=== PATIENT | female | born 1955 | race Caucasian/White ===

== ENCOUNTER 2019-04-13 05:48 | Inpatient (IN) ==
[2019-04-13] MEDS ORDERED: Furosemide 20 MG/2 ML VIAL IVP ONE (09:53)
[2019-04-13] MEDS ORDERED: Ondansetron ODT 4 MG TAB.RAPDIS SL PRN (09:56)
[2019-04-13] MEDS ORDERED: Naloxone 0.4 MG/ML INJ IVP PRN (09:56)
[2019-04-13] MEDS ORDERED: Furosemide 40 MG/4 ML VIAL ONE (09:59)
[2019-04-13] MEDS ORDERED: Furosemide 40 MG/4 ML VIAL IVP ONE (10:09)
[2019-04-13] MEDS ORDERED: Dextrose Gel 15 GM/37.5 ML TUBE PO PRN ×2 (10:10)
[2019-04-13] MEDS ORDERED: D5% in Water 1,000 ML IVC PRN (10:10)
[2019-04-13] MEDS ORDERED: Nitroglycerin 0.4 MG TAB.SUBL SL PRN (10:10)
[2019-04-13] MEDS ORDERED: *HR* Dextrose 50 % in Water (Syg) 50 ML SYRINGE IVP PRN (10:10)
[2019-04-13] MEDS ORDERED: Ipratropium Neb 0.5 MG NEBULIZER IH PRN (10:11)
[2019-04-13] MEDS ORDERED: Levalbuterol Neb 0.63 MG/3 ML IH PRN (10:26)
[2019-04-13] MEDS ORDERED: *HR* Heparin 5,000 UNIT/ML VIAL IVP PRN ×2 (10:27)
[2019-04-13] MEDS ORDERED: *HR* Heparin 5,000 UNIT/ML VIAL IVP ONE (10:27)
[2019-04-13] MEDS ORDERED: Isovue-370 500 ML BOTTLE IVP ONE (10:40)
[2019-04-13] MEDS: levoFLOXacin 750 MG/150 ML 750 MG/150 ML BAG IVPB SCH (12:33)
[2019-04-13] MEDS: Insulin LISPRO 300 UNITS/3 ML VIAL SQ SCH ×3 (13:21→19:46)
[2019-04-13] MEDS: Heparin 25,000 UNIT/250 ML D5W 25,000 UNIT/250 ML IV.SOLN IVC SCH (13:26)
[2019-04-13] MEDS: Nystatin POWDER 30 GM BOTTLE TP SCH ×2 (13:36→19:47)
[2019-04-13 13:47] LABS: INR 1.1; Prothrombin Time 12.1 Seconds (9.4-12.1)
[2019-04-13 13:57] LABS: Magnesium 1.9 mg/dL (1.6-2.6)
[2019-04-13 14:01] LABS: Troponin I 0.06 ng/mL (< 0.04)
[2019-04-13] MEDS: Ipratropium Neb 0.5 MG NEBULIZER IH SCH ×2 (17:09→21:37)
[2019-04-14 01:44] LABS: Hematocrit 39.6 % (35.3-44.9); Hemoglobin 13.3 g/dL (11.5-15.4); Mean Corpuscular HGB Conc 33.6 g/dL (31.6-35.5); Mean Corpuscular Hemoglobin 31.4 pg (28.0-33.3); Mean Corpuscular Volume 93.4 fL (83.0-100.0); Mean Platelet Volume 9.7 fL (9.4-12.4); Platelet Count 220 K/mcL (140-400); Red Blood Count 4.24 M/mcL (3.82-4.97); Red Cell Distribution Width 14.6 % (11.5-14.5); White Blood Count 20.3 K/mcL (4.3-11.1)
[2019-04-14 01:51] LABS: BUN/Creatinine Ratio 67 (6-26); Blood Urea Nitrogen 43 mg/dL (8-23); Calcium 9.2 mg/dL (8.6-10.3); Carbon Dioxide 29 mEq/L (23-29); Chloride 99 mEq/L (98-107); Glucose 272 mg/dL (70-105); Osmolality,Calculated 298 (280-300); Potassium 4.3 mEq/L (3.5-5.1); Sodium 134 mEq/L (136-145); eGFR For African Americans > 60 (> 60); eGFR For Non-African Americans > 60 (> 60)
[2019-04-14] MEDS: Ipratropium Neb 0.5 MG NEBULIZER IH SCH ×4 (03:20→21:51)
[2019-04-14] MEDS: Heparin 25,000 UNIT/250 ML D5W 25,000 UNIT/250 ML IV.SOLN IVC SCH (04:04)
[2019-04-14] MEDS ORDERED: *HR* HYDROcodone/Acet 5/325 mg TABLET PO ONE (05:46)
[2019-04-14] MEDS ORDERED: Perflutren Lipid Microsphere 1.3 ML in 0.9 % Sodium Chloride 8.7 ML IVP ONE (07:45)
[2019-04-14] MEDS: Insulin LISPRO 300 UNITS/3 ML VIAL SQ SCH ×4 (08:52→21:05)
[2019-04-14] MEDS: levoFLOXacin 750 MG/150 ML 750 MG/150 ML BAG IVPB SCH (08:52)
[2019-04-14] MEDS: Nystatin POWDER 30 GM BOTTLE TP SCH ×2 (08:53→21:06)
[2019-04-14] MEDS: predniSONE 20 MG TABLET PO SCH (08:53)
[2019-04-14] MEDS ORDERED: Lisinopril 20 MG TABLET PO SCH (09:00)
[2019-04-14] MEDS ORDERED: Diltiazem CD (24hr) 120 MG CAPSULE PO SCH (09:00)
[2019-04-14] MEDS ORDERED: Spironolactone 25 MG TABLET PO SCH (09:00)
[2019-04-14] MEDS: Apixaban 5 MG TABLET PO SCH ×2 (11:16→21:05)
[2019-04-14] MEDS: Multivit/Ca/Min/Fe/FA 1 TAB TABLET PO SCH (11:17)
[2019-04-14] MEDS: Isosorbide MONOnitrate (24 HR) 30 MG TAB.ER.24H PO SCH (11:17)
[2019-04-14] MEDS: Aspirin Enteric Coated 81 MG Tablet PO SCH (11:17)
[2019-04-14] MEDS: CarBAMazepine 100 MG TABLET PO SCH ×2 (11:18→21:05)
[2019-04-14] MEDS: Cholecalciferol (D-3) 1,000 UNIT (25MCG) TABLET PO SCH (11:18)
[2019-04-14] MEDS: Triamcinolone Acet 0.1% CRM 15 GM TUBE TP SCH ×3 (11:24→21:26)
[2019-04-14] MEDS: Clotrimazole 1% CRM 15 GM TUBE TP SCH ×3 (11:25→21:26)
[2019-04-14] MEDS: Budesonide/Formoterol 160/4.5 1 PUFF INH IH SCH ×2 (11:46→21:51)
[2019-04-14] MEDS: Furosemide 40 MG/4 ML VIAL IVP SCH ×2 (11:53→17:03)
[2019-04-14] MEDS: *HR* Metoprolol 5 MG/5 ML VIAL IVP PRN (17:03)
[2019-04-14] MEDS ORDERED: Insulin DETEMIR 100 UNIT/ML X5UNITS SQ SCH (21:00)
[2019-04-15] MEDS: Ipratropium Neb 0.5 MG NEBULIZER IH SCH ×2 (03:31→10:37)
[2019-04-15 06:24] LABS: Basophils % 0.2 %; Hematocrit 39.1 % (35.3-44.9); Hemoglobin 12.6 g/dL (11.5-15.4); Lymphocytes # 1.6 K/mcL (0.6-4.6); Lymphocytes % 10.1 %; Mean Corpuscular HGB Conc 32.2 g/dL (31.6-35.5); Mean Corpuscular Hemoglobin 31.2 pg (28.0-33.3); Mean Corpuscular Volume 96.8 fL (83.0-100.0); Mean Platelet Volume 9.8 fL (9.4-12.4); Monocytes % 6.4 %; Platelet Count 226 K/mcL (140-400); Red Blood Count 4.04 M/mcL (3.82-4.97); Red Cell Distribution Width 14.6 % (11.5-14.5); Segmented Neutrophils % 82.3 %; White Blood Count 15.8 K/mcL (4.3-11.1)
[2019-04-15 06:38] LABS: BUN/Creatinine Ratio 55 (6-26); Blood Urea Nitrogen 36 mg/dL (8-23); Calcium 9.9 mg/dL (8.6-10.3); Carbon Dioxide 34 mEq/L (23-29); Chloride 96 mEq/L (98-107); Glucose 250 mg/dL (70-105); Magnesium 1.6 mg/dL (1.6-2.6); Osmolality,Calculated 305 (280-300); Phosphorous 3.1 mg/dL (2.7-4.5); Potassium 3.9 mEq/L (3.5-5.1); Sodium 139 mEq/L (136-145); eGFR For African Americans > 60 (> 60); eGFR For Non-African Americans > 60 (> 60)
[2019-04-15] MEDS: Multivit/Ca/Min/Fe/FA 1 TAB TABLET PO SCH (08:00)
[2019-04-15] MEDS: Furosemide 40 MG/4 ML VIAL IVP SCH ×2 (08:07→17:45)
[2019-04-15] MEDS: CarBAMazepine 100 MG TABLET PO SCH ×2 (08:07→20:43)
[2019-04-15] MEDS: Cholecalciferol (D-3) 1,000 UNIT (25MCG) TABLET PO SCH (08:07)
[2019-04-15] MEDS: Spironolactone 25 MG TABLET PO SCH (08:08)
[2019-04-15] MEDS: Aspirin Enteric Coated 81 MG Tablet PO SCH (08:08)
[2019-04-15] MEDS: predniSONE 20 MG TABLET PO SCH (08:08)
[2019-04-15] MEDS: Apixaban 5 MG TABLET PO SCH ×2 (08:08→20:43)
[2019-04-15] MEDS: Isosorbide MONOnitrate (24 HR) 30 MG TAB.ER.24H PO SCH (08:08)
[2019-04-15] MEDS: levoFLOXacin 750 MG/150 ML 750 MG/150 ML BAG IVPB SCH (08:09)
[2019-04-15] MEDS: Clotrimazole 1% CRM 15 GM TUBE TP SCH ×2 (08:09→20:43)
[2019-04-15] MEDS: Triamcinolone Acet 0.1% CRM 15 GM TUBE TP SCH ×2 (08:09→20:43)
[2019-04-15] MEDS: Insulin LISPRO 300 UNITS/3 ML VIAL SQ SCH ×3 (08:10→17:46)
[2019-04-15] MEDS: ALPRAZolam 1 MG TABLET PO PRN (10:13)
[2019-04-15] MEDS: Budesonide/Formoterol 160/4.5 1 PUFF INH IH SCH ×2 (10:37→20:05)
[2019-04-15] MEDS: Tiotropium 18 MCG inhalation IH SCH (10:40)
[2019-04-15] MEDS: Nystatin POWDER 30 GM BOTTLE TP SCH ×2 (11:45→20:43)
[2019-04-15] MEDS: Acetylcysteine 10% 2 ML INHSOL IH SCH ×2 (15:34→23:27)
[2019-04-15] MEDS: Albuterol 2.5 MG/3 ML NEBULIZER IH SCH ×3 (15:35→23:27)
[2019-04-15] MEDS: *HR* Metoprolol 5 MG/5 ML VIAL IVP PRN (15:40)
[2019-04-15] MEDS ORDERED: Insulin Human Regular 20 UNIT in 0.9 % Sodium Chloride 10 ML IV ONE (17:07)
[2019-04-16] MEDS: Insulin DETEMIR 100 UNIT/ML X5UNITS SQ SCH ×2 (01:04→22:01)
[2019-04-16] MEDS: Insulin LISPRO 300 UNITS/3 ML VIAL SQ SCH ×6 (01:04→22:01)
[2019-04-16] MEDS: Albuterol 2.5 MG/3 ML NEBULIZER IH SCH ×6 (03:26→23:30)
[2019-04-16 03:30] LABS: Basophils # 0.1 K/mcL (0.0-0.2); Basophils % 0.9 %; Eosinophils % 0.1 %; Hematocrit 41.8 % (35.3-44.9); Hemoglobin 13.8 g/dL (11.5-15.4); Immature Granulocytes % 3.3 % (0-4); Lymphocytes # 2.2 K/mcL (0.6-4.6); Lymphocytes % 20.1 %; Mean Corpuscular Hemoglobin 30.8 pg (28.0-33.3); Mean Corpuscular Volume 93.3 fL (83.0-100.0); Mean Platelet Volume 9.5 fL (9.4-12.4); Monocytes # 1.2 K/mcL (0.0-1.3); Monocytes % 10.8 %; Platelet Count 242 K/mcL (140-400); Red Blood Count 4.48 M/mcL (3.82-4.97); Red Cell Distribution Width 14.8 % (11.5-14.5); Segmented Neutrophils % 64.8 %; White Blood Count 10.8 K/mcL (4.3-11.1)
[2019-04-16 03:49] LABS: BUN/Creatinine Ratio 52 (6-26); Blood Urea Nitrogen 32 mg/dL (8-23); Carbon Dioxide 32 mEq/L (23-29); Chloride 98 mEq/L (98-107); Glucose 226 mg/dL (70-105); Magnesium 1.5 mg/dL (1.6-2.6); Osmolality,Calculated 304 (280-300); Phosphorous 4.2 mg/dL (2.7-4.5); Sodium 140 mEq/L (136-145); eGFR For African Americans > 60 (> 60); eGFR For Non-African Americans > 60 (> 60)
[2019-04-16] MEDS: Furosemide 40 MG/4 ML VIAL IVP SCH ×2 (07:56→16:34)
[2019-04-16] MEDS: Acetaminophen 325 MG TABLET PO PRN ×2 (07:57→16:34)
[2019-04-16] MEDS: Multivit/Ca/Min/Fe/FA 1 TAB TABLET PO SCH (07:57)
[2019-04-16] MEDS: Isosorbide MONOnitrate (24 HR) 30 MG TAB.ER.24H PO SCH (07:57)
[2019-04-16] MEDS: Aspirin Enteric Coated 81 MG Tablet PO SCH (07:57)
[2019-04-16] MEDS: Apixaban 5 MG TABLET PO SCH ×2 (07:57→20:01)
[2019-04-16] MEDS: predniSONE 20 MG TABLET PO SCH (07:57)
[2019-04-16] MEDS: CarBAMazepine 100 MG TABLET PO SCH ×2 (07:57→20:01)
[2019-04-16] MEDS: Spironolactone 25 MG TABLET PO SCH (07:58)
[2019-04-16] MEDS: Cholecalciferol (D-3) 1,000 UNIT (25MCG) TABLET PO SCH (07:58)
[2019-04-16] MEDS: levoFLOXacin 750 MG/150 ML 750 MG/150 ML BAG IVPB SCH (07:58)
[2019-04-16] MEDS: Nystatin POWDER 30 GM BOTTLE TP SCH ×2 (07:59→19:57)
[2019-04-16] MEDS: Triamcinolone Acet 0.1% CRM 15 GM TUBE TP SCH ×2 (07:59→19:57)
[2019-04-16] MEDS: Clotrimazole 1% CRM 15 GM TUBE TP SCH ×2 (07:59→19:57)
[2019-04-16] MEDS: Acetylcysteine 10% 2 ML INHSOL IH SCH ×3 (08:08→19:58)
[2019-04-16] MEDS: Tiotropium 18 MCG inhalation IH SCH (08:08)
[2019-04-16] MEDS: Budesonide/Formoterol 160/4.5 1 PUFF INH IH SCH ×2 (08:08→19:59)
[2019-04-16] MEDS: Diltiazem CD (24hr) 180 MG CAPSULE PO SCH (11:24)
[2019-04-16] MEDS ORDERED: Insulin Human Regular 20 UNIT in 0.9 % Sodium Chloride 10 ML IV ONE (15:50)
[2019-04-16] MEDS: ALPRAZolam 1 MG TABLET PO PRN (16:35)
[2019-04-16] MEDS ORDERED: Insulin Human Regular 10 UNIT in 0.9 % Sodium Chloride 10 ML IV ONE (18:47)
[2019-04-17] MEDS: Albuterol 2.5 MG/3 ML NEBULIZER IH SCH ×2 (04:11→08:01)
[2019-04-17] MEDS: Budesonide/Formoterol 160/4.5 1 PUFF INH IH SCH ×2 (08:01→19:58)
[2019-04-17] MEDS: Acetylcysteine 10% 2 ML INHSOL IH SCH (08:01)
[2019-04-17] MEDS: Tiotropium 18 MCG inhalation IH SCH (08:12)
[2019-04-17] MEDS: Furosemide 40 MG/4 ML VIAL IVP SCH ×2 (08:12→17:33)
[2019-04-17] MEDS: Insulin LISPRO 300 UNITS/3 ML VIAL SQ SCH ×4 (08:12→19:46)
[2019-04-17] MEDS: CarBAMazepine 100 MG TABLET PO SCH ×2 (08:12→19:45)
[2019-04-17] MEDS: Diltiazem CD (24hr) 180 MG CAPSULE PO SCH (08:13)
[2019-04-17] MEDS: Aspirin Enteric Coated 81 MG Tablet PO SCH (08:13)
[2019-04-17] MEDS: Spironolactone 25 MG TABLET PO SCH (08:13)
[2019-04-17] MEDS: Apixaban 5 MG TABLET PO SCH ×2 (08:14→19:45)
[2019-04-17] MEDS: Nystatin POWDER 30 GM BOTTLE TP SCH ×2 (08:14→19:47)
[2019-04-17] MEDS: Clotrimazole 1% CRM 15 GM TUBE TP SCH ×2 (08:14→19:46)
[2019-04-17] MEDS: Isosorbide MONOnitrate (24 HR) 30 MG TAB.ER.24H PO SCH (08:14)
[2019-04-17] MEDS: predniSONE 20 MG TABLET PO SCH (08:14)
[2019-04-17] MEDS: levoFLOXacin 750 MG/150 ML 750 MG/150 ML BAG IVPB SCH (08:15)
[2019-04-17] MEDS: Cholecalciferol (D-3) 1,000 UNIT (25MCG) TABLET PO SCH (08:16)
[2019-04-17] MEDS: Triamcinolone Acet 0.1% CRM 15 GM TUBE TP SCH ×2 (08:16→19:46)
[2019-04-17] MEDS: Multivit/Ca/Min/Fe/FA 1 TAB TABLET PO SCH (08:16)
[2019-04-17] MEDS ORDERED: Levalbuterol Neb 0.63 MG/3 ML IH PRN (08:44)
[2019-04-17 09:53] LABS: Hematocrit 45.7 % (35.3-44.9); Hemoglobin 14.7 g/dL (11.5-15.4); Mean Corpuscular HGB Conc 32.2 g/dL (31.6-35.5); Mean Corpuscular Hemoglobin 30.7 pg (28.0-33.3); Mean Corpuscular Volume 95.4 fL (83.0-100.0); Mean Platelet Volume 9.9 fL (9.4-12.4); Monocytes # 1.4 K/mcL (0.0-1.3); Platelet Count 288 K/mcL (140-400); Red Blood Count 4.79 M/mcL (3.82-4.97); Red Cell Distribution Width 14.7 % (11.5-14.5); White Blood Count 15.5 K/mcL (4.3-11.1)
[2019-04-17 10:15] LABS: BUN/Creatinine Ratio 46 (6-26); Blood Urea Nitrogen 32 mg/dL (8-23); Calcium 10.5 mg/dL (8.6-10.3); Carbon Dioxide 40 mEq/L (23-29); Chloride 94 mEq/L (98-107); Glucose 315 mg/dL (70-105); Magnesium 1.5 mg/dL (1.6-2.6); Osmolality,Calculated 311 (280-300); Phosphorous 3.5 mg/dL (2.7-4.5); Sodium 141 mEq/L (136-145); eGFR For African Americans > 60 (> 60); eGFR For Non-African Americans > 60 (> 60)
[2019-04-17 10:28] LABS: Neutrophils # 9.2 K/mcL (1.6-8.9); Platelet Estimate Normal (Normal); Reactive Lymphocytes Present (Not Present)
[2019-04-17] MEDS: Acetaminophen 325 MG TABLET PO PRN (19:45)
[2019-04-17] MEDS: ALPRAZolam 1 MG TABLET PO PRN (19:45)
[2019-04-17] MEDS: Insulin DETEMIR 100 UNIT/ML X5UNITS SQ SCH (19:46)
[2019-04-18 04:35] LABS: Basophils # 0.1 K/mcL (0.0-0.2); Basophils % 1.2 %; Eosinophils % 0.3 %; Hematocrit 45.1 % (35.3-44.9); Hemoglobin 14.5 g/dL (11.5-15.4); Immature Granulocytes % 5.3 % (0-4); Lymphocytes # 3.2 K/mcL (0.6-4.6); Mean Corpuscular HGB Conc 32.2 g/dL (31.6-35.5); Mean Corpuscular Volume 96.4 fL (83.0-100.0); Mean Platelet Volume 9.7 fL (9.4-12.4); Monocytes # 1.1 K/mcL (0.0-1.3); Neutrophils # 6.8 K/mcL (1.6-8.9); Platelet Count 289 K/mcL (140-400); Red Blood Count 4.68 M/mcL (3.82-4.97); Red Cell Distribution Width 14.8 % (11.5-14.5); Segmented Neutrophils % 57.2 %; White Blood Count 11.9 K/mcL (4.3-11.1)
[2019-04-18 04:49] LABS: BUN/Creatinine Ratio 77 (6-26); Blood Urea Nitrogen 43 mg/dL (8-23); Calcium 11.4 mg/dL (8.6-10.3); Carbon Dioxide 36 mEq/L (23-29); Chloride 98 mEq/L (98-107); Glucose 212 mg/dL (70-105); Magnesium 1.8 mg/dL (1.6-2.6); Osmolality,Calculated 309 (280-300); Phosphorous 4.2 mg/dL (2.7-4.5); Potassium 3.9 mEq/L (3.5-5.1); Sodium 141 mEq/L (136-145); eGFR For African Americans > 60 (> 60); eGFR For Non-African Americans > 60 (> 60)
[2019-04-18 05:10] LABS: Platelet Estimate Normal (Normal); Reactive Lymphocytes Present (Not Present)
[2019-04-18] MEDS: Insulin LISPRO 300 UNITS/3 ML VIAL SQ SCH ×4 (09:11→19:43)
[2019-04-18] MEDS: Furosemide 40 MG/4 ML VIAL IVP SCH (09:11)
[2019-04-18] MEDS: Aspirin Enteric Coated 81 MG Tablet PO SCH (09:12)
[2019-04-18] MEDS: Spironolactone 25 MG TABLET PO SCH (09:12)
[2019-04-18] MEDS: predniSONE 20 MG TABLET PO SCH (09:12)
[2019-04-18] MEDS: Multivit/Ca/Min/Fe/FA 1 TAB TABLET PO SCH (09:12)
[2019-04-18] MEDS: Apixaban 5 MG TABLET PO SCH ×2 (09:13→19:42)
[2019-04-18] MEDS: Isosorbide MONOnitrate (24 HR) 30 MG TAB.ER.24H PO SCH (09:13)
[2019-04-18] MEDS: Cholecalciferol (D-3) 1,000 UNIT (25MCG) TABLET PO SCH (09:13)
[2019-04-18] MEDS: Diltiazem CD (24hr) 180 MG CAPSULE PO SCH (09:13)
[2019-04-18] MEDS: CarBAMazepine 100 MG TABLET PO SCH ×2 (09:13→19:42)
[2019-04-18] MEDS: levoFLOXacin 750 MG/150 ML 750 MG/150 ML BAG IVPB SCH (09:14)
[2019-04-18] MEDS: Insulin DETEMIR 100 UNIT/ML X5UNITS SQ SCH ×2 (09:43→19:43)
[2019-04-18] MEDS: Tiotropium 18 MCG inhalation IH SCH (11:19)
[2019-04-18] MEDS: Budesonide/Formoterol 160/4.5 1 PUFF INH IH SCH ×2 (11:19→19:53)
[2019-04-18] MEDS: Triamcinolone Acet 0.1% CRM 15 GM TUBE TP SCH ×2 (18:12→19:45)
[2019-04-18] MEDS: Clotrimazole 1% CRM 15 GM TUBE TP SCH ×2 (18:12→19:45)
[2019-04-18] MEDS: Nystatin POWDER 30 GM BOTTLE TP SCH ×2 (18:12→19:45)
[2019-04-19] MEDS: Budesonide/Formoterol 160/4.5 1 PUFF INH IH SCH (07:29)
[2019-04-19] MEDS: Tiotropium 18 MCG inhalation IH SCH (07:29)
[2019-04-19 07:44] LABS: Basophils # 0.1 K/mcL (0.0-0.2); Basophils % 0.9 %; Eosinophils % 0.4 %; Hemoglobin 14.8 g/dL (11.5-15.4); Immature Granulocytes % 4.7 % (0-4); Lymphocytes # 4.6 K/mcL (0.6-4.6); Lymphocytes % 41.6 %; Mean Corpuscular HGB Conc 32.9 g/dL (31.6-35.5); Mean Corpuscular Hemoglobin 31.1 pg (28.0-33.3); Mean Corpuscular Volume 94.5 fL (83.0-100.0); Mean Platelet Volume 9.7 fL (9.4-12.4); Monocytes # 0.7 K/mcL (0.0-1.3); Monocytes % 6.1 %; Neutrophils # 5.1 K/mcL (1.6-8.9); Platelet Count 353 K/mcL (140-400); Red Blood Count 4.76 M/mcL (3.82-4.97); Red Cell Distribution Width 14.7 % (11.5-14.5); Segmented Neutrophils % 46.3 %
[2019-04-19 07:47] LABS: Platelet Estimate Normal (Normal); Reactive Lymphocytes Present (Not Present)
[2019-04-19 08:06] LABS: BUN/Creatinine Ratio 64 (6-26); Blood Urea Nitrogen 39 mg/dL (8-23); Calcium 10.1 mg/dL (8.6-10.3); Carbon Dioxide 39 mEq/L (23-29); Chloride 95 mEq/L (98-107); Glucose 145 mg/dL (70-105); Magnesium 1.6 mg/dL (1.6-2.6); Osmolality,Calculated 306 (280-300); Potassium 3.9 mEq/L (3.5-5.1); Sodium 142 mEq/L (136-145); eGFR For African Americans > 60 (> 60); eGFR For Non-African Americans > 60 (> 60)
[2019-04-19] MEDS ORDERED: Spironolactone 25 MG TABLET PO SCH (09:00)
[2019-04-19] MEDS ORDERED: levoFLOXacin 750 MG TABLET PO SCH (09:00)
[2019-04-19] MEDS: CarBAMazepine 100 MG TABLET PO SCH (09:07)
[2019-04-19] MEDS: Isosorbide MONOnitrate (24 HR) 30 MG TAB.ER.24H PO SCH (09:07)
[2019-04-19] MEDS: Acetaminophen 325 MG TABLET PO PRN (09:07)
[2019-04-19] MEDS: Multivit/Ca/Min/Fe/FA 1 TAB TABLET PO SCH (09:07)
[2019-04-19] MEDS: predniSONE 20 MG TABLET PO SCH (09:07)
[2019-04-19] MEDS: Diltiazem CD (24hr) 180 MG CAPSULE PO SCH (09:08)
[2019-04-19] MEDS: Aspirin Enteric Coated 81 MG Tablet PO SCH (09:08)
[2019-04-19] MEDS: Insulin LISPRO 300 UNITS/3 ML VIAL SQ SCH ×2 (09:08→13:07)
[2019-04-19] MEDS: Apixaban 5 MG TABLET PO SCH (09:08)
[2019-04-19] MEDS: Cholecalciferol (D-3) 1,000 UNIT (25MCG) TABLET PO SCH (09:12)
[2019-04-19] MEDS: Insulin DETEMIR 100 UNIT/ML X5UNITS SQ SCH (09:14)
[2019-04-19 11:45] VITALS: BP 116/64
== END 2019-04-19 17:12 | disposition home health service (06) | DRG 871 ==
LOC: CDU → SUATTDRO 08:00 → 2NENU 04-18 05:25
PROVIDERS: ADMIT Family Medicine; ATTEND Internal Medicine

== ENCOUNTER 2019-08-08 18:06 | Inpatient (IN) ==
[2019-08-08] MEDS ORDERED: Azithromycin 500 MG in 0.9 % Sodium Chloride 250 ML IVPB ONE (18:20)
[2019-08-08 19:00] LABS: Hematocrit 42.4 % (35.3-44.9); Hemoglobin 12.4 g/dL (11.5-15.4); Immature Granulocytes % 0.5 % (0-4); Mean Corpuscular HGB Conc 29.2 g/dL (31.6-35.5); Mean Corpuscular Hemoglobin 29.2 pg (28.0-33.3); Mean Corpuscular Volume 99.8 fL (83.0-100.0); Mean Platelet Volume 9.6 fL (9.4-12.4); Monocytes % 9.6 %; Platelet Count 261 K/mcL (140-400); Red Blood Count 4.25 M/mcL (3.82-4.97); Red Cell Distribution Width 14.5 % (11.5-14.5); Segmented Neutrophils % 51.7 %; White Blood Count 8.1 K/mcL (4.3-11.1)
[2019-08-08 19:01] LABS: Basophils % 0.2 %; Eosinophils # 0.2 K/mcL (0.0-0.6); Lymphocytes # 2.9 K/mcL (0.6-4.6); Monocytes # 0.8 K/mcL (0.0-1.3); Neutrophils # 4.2 K/mcL (1.6-8.9)
[2019-08-08 19:15] LABS: INR 1.1; Prothrombin Time 12.5 Seconds (9.4-12.1)
[2019-08-08 19:30] LABS: Alanine Aminotransferase 10 Units/L (7-52); Albumin 3.7 g/dL (3.5-5.7); Albumin/Globulin Ratio 1.2 (1.1-2.2); Alkaline Phosphatase 101 Units/L (34-104); Aspartate Amino Transferase 10 Units/L (13-39); BUN/Creatinine Ratio 28 (6-26); Bilirubin,Indirect 0.2 mg/dL (0.0-1.0); Bilirubin,Total 0.2 mg/dL (0.3-1.0); Blood Urea Nitrogen 16 mg/dL (8-23); C-Reactive Protein 8 mg/L (Less than 10); Calcium 9.5 mg/dL (8.6-10.3); Carbon Dioxide 40 mEq/L (23-29); Chloride 93 mEq/L (98-107); Globulin 3.1 g/dL (2.4-3.5); Glucose 211 mg/dL (70-105); Lactate Dehydrogenase 117 Units/L (140-271); Magnesium 1.3 mg/dL (1.6-2.6); Osmolality,Calculated 293 (280-300); Phosphorous 3.7 mg/dL (2.7-4.5); Potassium 4.5 mEq/L (3.5-5.1); Sodium 138 mEq/L (136-145); Total Protein 6.8 g/dL (6.4-8.9); Troponin I < 0.03 ng/mL (< 0.04); eGFR For African Americans > 60 (> 60); eGFR For Non-African Americans > 60 (> 60)
[2019-08-08 19:48] LABS: Ferritin 18 ng/mL (10-120)
[2019-08-08] MEDS ORDERED: methylPREDNISolone 125 MG/2 ML VIAL IVP ONE (19:56)
[2019-08-08] MEDS ORDERED: Ipratropium/Albuterol Neb 3 ML IH ONE (19:56)
[2019-08-08] MEDS ORDERED: Bumetanide 1 MG/4 ML VIAL IVP ONE (20:04)
[2019-08-08] MEDS ORDERED: Naloxone 0.4 MG/ML INJ IVP PRN (22:39)
[2019-08-08] MEDS ORDERED: Albuterol 2.5 MG/3 ML NEBULIZER IH PRN (22:41)
[2019-08-08] MEDS ORDERED: Fluticasone Propionate Nasal 50 MCG/SPRAY BOTTLE NS PRN (22:41)
[2019-08-08] MEDS ORDERED: ALPRAZolam 1 MG TABLET PO PRN (22:41)
[2019-08-08] MEDS ORDERED: D5% in Water 1,000 ML IVC PRN (22:59)
[2019-08-08] MEDS ORDERED: *HR* Dextrose 50 % in Water (Syg) 50 ML SYRINGE IVP PRN (22:59)
[2019-08-08] MEDS ORDERED: Dextrose Gel 15 GM/37.5 ML TUBE PO PRN ×2 (22:59)
[2019-08-08] MEDS ORDERED: Insulin LISPRO 300 UNITS/3 ML VIAL SQ SCH (23:00)
[2019-08-08] MEDS: PARoxetine 20 MG TABLET PO SCH (23:20)
[2019-08-08] MEDS: DilTIAZem CD (24hr) 180 MG CAP.ER.24H PO SCH (23:20)
[2019-08-08] MEDS: Ipratropium/Albuterol Neb 3 ML IH SCH (23:22)
[2019-08-09 01:16] LABS: Hematocrit 43.1 % (35.3-44.9); Hemoglobin 12.5 g/dL (11.5-15.4); Mean Corpuscular Hemoglobin 28.5 pg (28.0-33.3); Mean Corpuscular Volume 98.4 fL (83.0-100.0); Mean Platelet Volume 9.7 fL (9.4-12.4); Platelet Count 241 K/mcL (140-400); Red Blood Count 4.38 M/mcL (3.82-4.97); Red Cell Distribution Width 14.4 % (11.5-14.5)
[2019-08-09 01:34] LABS: BUN/Creatinine Ratio 25 (6-26); Blood Urea Nitrogen 16 mg/dL (8-23); Calcium 9.5 mg/dL (8.6-10.3); Carbon Dioxide 42 mEq/L (23-29); Chloride 91 mEq/L (98-107); Glucose 228 mg/dL (70-105); Magnesium 1.7 mg/dL (1.6-2.6); Osmolality,Calculated 292 (280-300); Phosphorous 3.3 mg/dL (2.7-4.5); Potassium 4.5 mEq/L (3.5-5.1); Sodium 137 mEq/L (136-145); eGFR For African Americans > 60 (> 60); eGFR For Non-African Americans > 60 (> 60)
[2019-08-09 02:34] LABS: ABG Base Excess 13 mEq/L (-2 to 3); ABG HCO3 41 mEq/L (21-27); ABG Oxygen Saturation 96 % (95-98); ABG PCO2 61 mmHg (35-45); ABG PH 7.43 pH Units (7.32-7.45); ABG PO2 79 mmHg (85-104); ABG TCO2 43 mEq/L (20-26); Blood Gas Modality BiLevel
[2019-08-09] MEDS: MethylPREDNISolone 40 MG/ML VIAL IVP SCH ×3 (03:59→20:07)
[2019-08-09] MEDS: Ipratropium/Albuterol Neb 3 ML IH SCH ×5 (04:09→20:20)
[2019-08-09] MEDS: Budesonide/Formoterol 160/4.5 1 PUFF INH IH SCH ×2 (07:34→20:21)
[2019-08-09] MEDS ORDERED: Ipratropium/Albuterol Neb 3 ML IH PRN (08:00)
[2019-08-09 08:36] LABS: ABG Base Excess 12 mEq/L (-2 to 3); ABG HCO3 40 mEq/L (21-27); ABG Oxygen Saturation 76 % (95-98); ABG PCO2 67 mmHg (35-45); ABG PH 7.39 pH Units (7.32-7.45); ABG PO2 43 mmHg (85-104); ABG TCO2 42 mEq/L (20-26)
[2019-08-09] MEDS: Tiotropium 18 MCG inhalation IH SCH (09:46)
[2019-08-09] MEDS: Insulin LISPRO 300 UNITS/3 ML VIAL SQ SCH ×4 (10:34→20:08)
[2019-08-09] MEDS: lisinopriL 20 MG TABLET PO SCH (10:35)
[2019-08-09] MEDS: Isosorbide MONOnitrate (24 HR) 30 MG TAB.ER.24H PO SCH (10:35)
[2019-08-09] MEDS: Aspirin Enteric Coated 81 MG Tablet PO SCH (10:35)
[2019-08-09] MEDS: Bumetanide 1 MG TABLET PO SCH (10:35)
[2019-08-09] MEDS: Apixaban 5 MG TABLET PO SCH ×2 (10:35→20:07)
[2019-08-09] MEDS: Azithromycin 250 MG TABLET PO SCH (10:35)
[2019-08-09] MEDS: PARoxetine 20 MG TABLET PO SCH (10:36)
[2019-08-09] MEDS: DilTIAZem CD (24hr) 180 MG CAP.ER.24H PO SCH (10:36)
[2019-08-09] MEDS: CarBAMazepine 100 MG TABLET PO SCH ×2 (10:36→20:07)
[2019-08-09] MEDS ORDERED: Insulin LISPRO 300 UNITS/3 ML VIAL SQ STA (16:55)
[2019-08-09] MEDS: Insulin DETEMIR 100 UNIT/ML X5UNITS SQ SCH (20:09)
[2019-08-10] MEDS: Ipratropium/Albuterol Neb 3 ML IH SCH ×7 (00:08→23:53)
[2019-08-10 01:29] LABS: BUN/Creatinine Ratio 48 (6-26); Blood Urea Nitrogen 38 mg/dL (8-23); Calcium 9.5 mg/dL (8.6-10.3); Carbon Dioxide 38 mEq/L (23-29); Chloride 94 mEq/L (98-107); Glucose 335 mg/dL (70-105); Osmolality,Calculated 306 (280-300); Potassium 4.6 mEq/L (3.5-5.1); Sodium 137 mEq/L (136-145); eGFR For African Americans > 60 (> 60); eGFR For Non-African Americans > 60 (> 60)
[2019-08-10] MEDS: MethylPREDNISolone 40 MG/ML VIAL IVP SCH (04:25)
[2019-08-10] MEDS: Budesonide/Formoterol 160/4.5 1 PUFF INH IH SCH ×2 (07:57→19:54)
[2019-08-10] MEDS: Tiotropium 18 MCG inhalation IH SCH (07:57)
[2019-08-10] MEDS: lisinopriL 20 MG TABLET PO SCH (08:21)
[2019-08-10] MEDS: Azithromycin 250 MG TABLET PO SCH (08:21)
[2019-08-10] MEDS: Aspirin Enteric Coated 81 MG Tablet PO SCH (08:21)
[2019-08-10] MEDS: Isosorbide MONOnitrate (24 HR) 30 MG TAB.ER.24H PO SCH (08:22)
[2019-08-10] MEDS: Apixaban 5 MG TABLET PO SCH ×2 (08:22→21:13)
[2019-08-10] MEDS: DilTIAZem CD (24hr) 180 MG CAP.ER.24H PO SCH (08:22)
[2019-08-10] MEDS: CarBAMazepine 100 MG TABLET PO SCH ×2 (08:22→21:13)
[2019-08-10] MEDS: PARoxetine 20 MG TABLET PO SCH (08:22)
[2019-08-10] MEDS: Bumetanide 1 MG TABLET PO SCH (08:22)
[2019-08-10] MEDS: Insulin LISPRO 300 UNITS/3 ML VIAL SQ SCH ×5 (08:23→21:13)
[2019-08-10] MEDS: Insulin DETEMIR 100 UNIT/ML X5UNITS SQ SCH (21:15)
[2019-08-11] MEDS: Ipratropium/Albuterol Neb 3 ML IH SCH ×5 (03:57→15:01)
[2019-08-11 06:05] LABS: BUN/Creatinine Ratio 42 (6-26); Blood Urea Nitrogen 29 mg/dL (8-23); Calcium 9.1 mg/dL (8.6-10.3); Carbon Dioxide 39 mEq/L (23-29); Chloride 93 mEq/L (98-107); Glucose 257 mg/dL (70-105); Osmolality,Calculated 299 (280-300); Potassium 4.4 mEq/L (3.5-5.1); Sodium 137 mEq/L (136-145); eGFR For African Americans > 60 (> 60); eGFR For Non-African Americans > 60 (> 60)
[2019-08-11] MEDS: Budesonide/Formoterol 160/4.5 1 PUFF INH IH SCH (08:01)
[2019-08-11] MEDS: Isosorbide MONOnitrate (24 HR) 30 MG TAB.ER.24H PO SCH (08:25)
[2019-08-11] MEDS: Apixaban 5 MG TABLET PO SCH (08:25)
[2019-08-11] MEDS: Insulin LISPRO 300 UNITS/3 ML VIAL SQ SCH ×6 (08:25→17:27)
[2019-08-11] MEDS: Azithromycin 250 MG TABLET PO SCH (08:25)
[2019-08-11] MEDS: Bumetanide 1 MG TABLET PO SCH (08:26)
[2019-08-11] MEDS: CarBAMazepine 100 MG TABLET PO SCH (08:26)
[2019-08-11] MEDS: DilTIAZem CD (24hr) 180 MG CAP.ER.24H PO SCH (08:26)
[2019-08-11] MEDS: Aspirin Enteric Coated 81 MG Tablet PO SCH (08:26)
[2019-08-11] MEDS: lisinopriL 20 MG TABLET PO SCH (08:26)
[2019-08-11] MEDS: PARoxetine 20 MG TABLET PO SCH (08:26)
[2019-08-11] MEDS ORDERED: predniSONE 20 MG TABLET PO SCH (09:00)
[2019-08-11] MEDS: Tiotropium 18 MCG inhalation IH SCH (11:12)
[2019-08-11 11:50] VITALS: BP 126/81
== END 2019-08-11 18:05 | disposition home or self-care (01) | DRG 291 ==
LOC: EMEROOARM 18:06 → 3BNU 18:06
PROVIDERS: ADMIT Internal Medicine; ATTEND Internal Medicine

== ENCOUNTER 2020-01-29 07:47 | Inpatient (IN) ==
[2020-01-29] MEDS ORDERED: Piperacillin/Tazobactam 3.375 GM in Water for inj. (sterile) 20 ML IVP ONE (08:00)
[2020-01-29] MEDS ORDERED: methylPREDNISolone 125 MG/2 ML VIAL IVP ONE (08:00)
[2020-01-29] MEDS ORDERED: Ipratropium/Albuterol Neb 3 ML IH ONE (08:00)
[2020-01-29 08:21] LABS: Basophils % 0.2 %; Eosinophils % 0.5 %; Hemoglobin 13.1 g/dL (11.5-15.4); Immature Granulocytes % 0.4 % (0-4); Lymphocytes # 1.9 K/mcL (0.6-4.6); Lymphocytes % 22.6 %; Mean Corpuscular HGB Conc 29.1 g/dL (31.6-35.5); Mean Corpuscular Hemoglobin 28.9 pg (28.0-33.3); Mean Corpuscular Volume 99.3 fL (83.0-100.0); Mean Platelet Volume 10.3 fL (9.4-12.4); Monocytes # 1.1 K/mcL (0.0-1.3); Monocytes % 12.4 %; Neutrophils # 5.5 K/mcL (1.6-8.9); Platelet Count 263 K/mcL (140-400); Red Blood Count 4.53 M/mcL (3.82-4.97); Segmented Neutrophils % 63.9 %; White Blood Count 8.5 K/mcL (4.3-11.1)
[2020-01-29 08:36] LABS: VBG HCO3 39 mEq/L (21-27); VBG PCO2 78 mmHg (41-51); VBG PH 7.31 pH Units (7.32-7.42); VBG PO2 53 mmHg (25-50)
[2020-01-29] MEDS: DilTIAZem 50 MG/50 ML IV.SOLN IVC SCH ×3 (08:50→18:33)
[2020-01-29] MEDS ORDERED: Furosemide 40 MG/4 ML VIAL IVP ONE ×2 (09:48→16:53)
[2020-01-29 10:08] LABS: BUN/Creatinine Ratio 23 (6-26); Blood Urea Nitrogen 12 mg/dL (8-23); Calcium 9.2 mg/dL (8.6-10.3); Carbon Dioxide 34 mEq/L (23-29); Chloride 93 mEq/L (98-107); Glucose 449 mg/dL (70-105); Osmolality,Calculated 297 (280-300); Potassium 4.3 mEq/L (3.5-5.1); Sodium 134 mEq/L (136-145); Troponin I 0.04 ng/mL (< 0.04); eGFR For African Americans > 60 (> 60); eGFR For Non-African Americans > 60 (> 60)
[2020-01-29] MEDS ORDERED: ALPRAZolam 1 MG TABLET PO PRN (10:12)
[2020-01-29] MEDS ORDERED: Fluticasone Propionate Nasal 50 MCG/SPRAY BOTTLE NS PRN (10:12)
[2020-01-29] MEDS ORDERED: D5% in Water 1,000 ML IVC PRN (10:13)
[2020-01-29] MEDS ORDERED: Dextrose Gel 15 GM/37.5 ML TUBE PO PRN ×2 (10:13)
[2020-01-29] MEDS ORDERED: *HR* Dextrose 50 % in Water (Vial) 50 ML VIAL IVP PRN (10:13)
[2020-01-29] MEDS ORDERED: Ondansetron 4 MG/2 ML VIAL IVP PRN (10:16)
[2020-01-29] MEDS ORDERED: Naloxone 0.4 MG/ML INJ IVP PRN (10:16)
[2020-01-29 10:34] LABS: Magnesium 1.7 mg/dL (1.6-2.6)
[2020-01-29] MEDS: Ipratropium/Albuterol Neb 3 ML IH SCH ×3 (11:31→19:53)
[2020-01-29] MEDS: Azithromycin 250 MG TABLET PO SCH (13:19)
[2020-01-29] MEDS: DilTIAZem CD (24hr) 180 MG CAP.ER.24H PO SCH (13:19)
[2020-01-29] MEDS ORDERED: Furosemide 20 MG/2 ML VIAL IVP ONE (14:03)
[2020-01-29] MEDS: Insulin LISPRO 300 UNITS/3 ML VIAL SQ SCH ×2 (14:19→20:30)
[2020-01-29 14:27] LABS: ABG Base Excess 9 mEq/L (-2 to 3); ABG HCO3 40 mEq/L (21-27); ABG Oxygen Saturation 88 % (95-98); ABG PCO2 83 mmHg (35-45); ABG PH 7.29 pH Units (7.32-7.45); ABG PO2 64 mmHg (85-104); ABG TCO2 42 mEq/L (20-26); Blood Gas Pressure Support 12 cm H2O
[2020-01-29] MEDS: Insulin DETEMIR 100 UNIT/ML X5UNITS SQ SCH ×2 (15:17→22:15)
[2020-01-29 18:19] LABS: ABG Base Excess 11 mEq/L (-2 to 3); ABG HCO3 39 mEq/L (21-27); ABG Oxygen Saturation 95 % (95-98); ABG PCO2 71 mmHg (35-45); ABG PH 7.36 pH Units (7.32-7.45); ABG PO2 82 mmHg (85-104); ABG TCO2 42 mEq/L (20-26)
[2020-01-29] MEDS: MethylPREDNISolone 40 MG/ML VIAL IVP SCH (18:33)
[2020-01-29] MEDS: Budesonide/Formoterol 160/4.5 1 PUFF INH IH SCH (19:53)
[2020-01-29] MEDS: Furosemide 40 MG/4 ML VIAL IVP SCH (20:30)
[2020-01-29] MEDS: Nystatin POWDER 30 GM BOTTLE TP SCH ×2 (20:31→22:09)
[2020-01-29] MEDS: CarBAMazepine 100 MG TABLET PO SCH (20:31)
[2020-01-29] MEDS: Apixaban 5 MG TABLET PO SCH (20:31)
[2020-01-29] MEDS ORDERED: Insulin DETEMIR 100 UNIT/ML X5UNITS SQ SCH (21:00)
[2020-01-30] MEDS: Ipratropium/Albuterol Neb 3 ML IH SCH ×6 (00:29→19:49)
[2020-01-30] MEDS: MethylPREDNISolone 40 MG/ML VIAL IVP SCH ×2 (06:08→16:36)
[2020-01-30 06:41] LABS: Hematocrit 42.3 % (35.3-44.9); Hemoglobin 12.4 g/dL (11.5-15.4); Immature Granulocytes % 0.2 % (0-4); Lymphocytes % 15.7 %; Mean Corpuscular HGB Conc 29.3 g/dL (31.6-35.5); Mean Corpuscular Hemoglobin 28.6 pg (28.0-33.3); Mean Corpuscular Volume 97.5 fL (83.0-100.0); Monocytes # 0.5 K/mcL (0.0-1.3); Monocytes % 8.1 %; Neutrophils # 4.7 K/mcL (1.6-8.9); Platelet Count 245 K/mcL (140-400); Red Blood Count 4.34 M/mcL (3.82-4.97); Red Cell Distribution Width 14.9 % (11.5-14.5); White Blood Count 6.2 K/mcL (4.3-11.1)
[2020-01-30 06:44] LABS: BUN/Creatinine Ratio 30 (6-26); Blood Urea Nitrogen 17 mg/dL (8-23); Calcium 9.1 mg/dL (8.6-10.3); Carbon Dioxide 38 mEq/L (23-29); Chloride 93 mEq/L (98-107); Glucose 282 mg/dL (70-105); Magnesium 1.6 mg/dL (1.6-2.6); Osmolality,Calculated 296 (280-300); Potassium 4.4 mEq/L (3.5-5.1); Sodium 137 mEq/L (136-145); eGFR For African Americans > 60 (> 60); eGFR For Non-African Americans > 60 (> 60)
[2020-01-30] MEDS: Budesonide/Formoterol 160/4.5 1 PUFF INH IH SCH ×2 (07:45→19:51)
[2020-01-30] MEDS: CarBAMazepine 100 MG TABLET PO SCH ×2 (07:58→20:22)
[2020-01-30] MEDS: Aspirin Enteric Coated 81 MG Tablet PO SCH (07:58)
[2020-01-30] MEDS: DilTIAZem CD (24hr) 180 MG CAP.ER.24H PO SCH (07:59)
[2020-01-30] MEDS: PARoxetine 20 MG TABLET PO SCH (07:59)
[2020-01-30] MEDS: Apixaban 5 MG TABLET PO SCH ×2 (07:59→20:22)
[2020-01-30] MEDS: Isosorbide MONOnitrate (24 HR) 30 MG TAB.ER.24H PO SCH (07:59)
[2020-01-30] MEDS: Furosemide 40 MG/4 ML VIAL IVP SCH ×2 (07:59→20:22)
[2020-01-30] MEDS: Insulin LISPRO 300 UNITS/3 ML VIAL SQ SCH ×3 (08:09→16:38)
[2020-01-30] MEDS: Azithromycin 250 MG TABLET PO SCH (08:19)
[2020-01-30] MEDS: Insulin DETEMIR 100 UNIT/ML X5UNITS SQ SCH ×2 (08:19→21:14)
[2020-01-30] MEDS: Nystatin POWDER 30 GM BOTTLE TP SCH ×3 (09:07→20:23)
[2020-01-30] MEDS ORDERED: *HR* Dextrose 50 % in Water (Vial) 50 ML VIAL IVP PRN (21:24)
[2020-01-30] MEDS ORDERED: Dextrose Gel 15 GM/37.5 ML TUBE PO PRN ×2 (21:24)
[2020-01-30] MEDS ORDERED: D5% in Water 1,000 ML IVC PRN (21:24)
[2020-01-30] MEDS ORDERED: Insulin LISPRO 300 UNITS/3 ML VIAL SQ SCH (22:15)
[2020-01-31] MEDS: Ipratropium/Albuterol Neb 3 ML IH SCH ×7 (00:29→23:49)
[2020-01-31] MEDS: Budesonide/Formoterol 160/4.5 1 PUFF INH IH SCH ×2 (07:32→19:49)
[2020-01-31] MEDS: Insulin LISPRO 300 UNITS/3 ML VIAL SQ SCH ×4 (08:58→19:39)
[2020-01-31] MEDS: Azithromycin 250 MG TABLET PO SCH (08:59)
[2020-01-31] MEDS: CarBAMazepine 100 MG TABLET PO SCH ×2 (08:59→19:38)
[2020-01-31] MEDS: Furosemide 40 MG/4 ML VIAL IVP SCH (08:59)
[2020-01-31] MEDS: DilTIAZem CD (24hr) 180 MG CAP.ER.24H PO SCH (08:59)
[2020-01-31] MEDS ORDERED: predniSONE 20 MG TABLET PO SCH (09:00)
[2020-01-31] MEDS: Apixaban 5 MG TABLET PO SCH ×2 (09:00→19:38)
[2020-01-31] MEDS: Isosorbide MONOnitrate (24 HR) 30 MG TAB.ER.24H PO SCH (09:00)
[2020-01-31] MEDS: Aspirin Enteric Coated 81 MG Tablet PO SCH (09:00)
[2020-01-31] MEDS: PARoxetine 20 MG TABLET PO SCH (09:00)
[2020-01-31] MEDS: Nystatin POWDER 30 GM BOTTLE TP SCH ×3 (09:00→21:36)
[2020-01-31] MEDS: Insulin DETEMIR 100 UNIT/ML X5UNITS SQ SCH ×2 (09:05→21:36)
[2020-01-31] MEDS: DilTIAZem 50 MG/50 ML IV.SOLN IVC SCH (09:12)
[2020-01-31 10:10] LABS: Basophils % 0.1 %; Eosinophils % 0.1 %; Hematocrit 43.3 % (35.3-44.9); Hemoglobin 12.7 g/dL (11.5-15.4); Immature Granulocytes % 0.1 % (0-4); Lymphocytes # 1.5 K/mcL (0.6-4.6); Lymphocytes % 20.4 %; Mean Corpuscular HGB Conc 29.3 g/dL (31.6-35.5); Mean Corpuscular Hemoglobin 28.4 pg (28.0-33.3); Mean Corpuscular Volume 96.9 fL (83.0-100.0); Mean Platelet Volume 9.9 fL (9.4-12.4); Monocytes # 0.7 K/mcL (0.0-1.3); Monocytes % 9.9 %; Neutrophils # 5.1 K/mcL (1.6-8.9); Platelet Count 250 K/mcL (140-400); Red Blood Count 4.47 M/mcL (3.82-4.97); Red Cell Distribution Width 14.8 % (11.5-14.5); Segmented Neutrophils % 69.4 %; White Blood Count 7.4 K/mcL (4.3-11.1)
[2020-01-31 10:36] LABS: BUN/Creatinine Ratio 46 (6-26); Blood Urea Nitrogen 33 mg/dL (8-23); Carbon Dioxide 42 mEq/L (23-29); Chloride 89 mEq/L (98-107); Glucose 397 mg/dL (70-105); Magnesium 1.8 mg/dL (1.6-2.6); Osmolality,Calculated 302 (280-300); Potassium 4.1 mEq/L (3.5-5.1); Sodium 134 mEq/L (136-145); eGFR For African Americans > 60 (> 60); eGFR For Non-African Americans > 60 (> 60)
[2020-01-31] MEDS ORDERED: ALPRAZolam 1 MG TABLET PO PRN (12:55)
[2020-01-31] MEDS ORDERED: Ondansetron 4 MG/2 ML VIAL IVP PRN (12:55)
[2020-01-31] MEDS ORDERED: D5% in Water 1,000 ML IVC PRN (12:55)
[2020-01-31] MEDS ORDERED: Dextrose Gel 15 GM/37.5 ML TUBE PO PRN ×4 (12:55)
[2020-01-31] MEDS ORDERED: *HR* Dextrose 50 % in Water (Vial) 50 ML VIAL IVP PRN (12:55)
[2020-01-31] MEDS ORDERED: Fluticasone Propionate Nasal 50 MCG/SPRAY BOTTLE NS PRN (12:55)
[2020-01-31] MEDS ORDERED: Naloxone 0.4 MG/ML INJ IVP PRN (12:55)
[2020-01-31] MEDS ORDERED: Furosemide 20 MG/2 ML VIAL IVP SCH (21:00)
[2020-02-01 03:15] LABS: Basophils % 0.2 %; Eosinophils % 0.3 %; Hematocrit 42.9 % (35.3-44.9); Hemoglobin 12.5 g/dL (11.5-15.4); Immature Granulocytes % 0.3 % (0-4); Lymphocytes # 1.5 K/mcL (0.6-4.6); Lymphocytes % 24.6 %; Mean Corpuscular HGB Conc 29.1 g/dL (31.6-35.5); Mean Corpuscular Hemoglobin 28.3 pg (28.0-33.3); Mean Corpuscular Volume 97.3 fL (83.0-100.0); Mean Platelet Volume 10.2 fL (9.4-12.4); Monocytes % 16.9 %; Neutrophils # 3.4 K/mcL (1.6-8.9); Platelet Count 250 K/mcL (140-400); Red Blood Count 4.41 M/mcL (3.82-4.97); Red Cell Distribution Width 14.7 % (11.5-14.5); Segmented Neutrophils % 57.7 %; White Blood Count 5.9 K/mcL (4.3-11.1)
[2020-02-01] MEDS: Ipratropium/Albuterol Neb 3 ML IH SCH ×2 (03:22→07:26)
[2020-02-01 04:09] LABS: BUN/Creatinine Ratio 49 (6-26); Blood Urea Nitrogen 33 mg/dL (8-23); Carbon Dioxide 45 mEq/L (23-29); Chloride 91 mEq/L (98-107); Glucose 252 mg/dL (70-105); Magnesium 1.7 mg/dL (1.6-2.6); Osmolality,Calculated 302 (280-300); Potassium 3.9 mEq/L (3.5-5.1); Sodium 138 mEq/L (136-145); eGFR For African Americans > 60 (> 60); eGFR For Non-African Americans > 60 (> 60)
[2020-02-01] MEDS: Budesonide/Formoterol 160/4.5 1 PUFF INH IH SCH ×2 (07:26→21:51)
[2020-02-01 08:20] LABS: VBG HCO3 42 mEq/L (21-27); VBG PCO2 74 mmHg (41-51); VBG PH 7.36 pH Units (7.32-7.42); VBG PO2 191 mmHg (25-50)
[2020-02-01] MEDS ORDERED: Nitroglycerin 0.4 MG TAB.SUBL SL ONE (08:47)
[2020-02-01] MEDS ORDERED: GI Cocktail 40 ML EACH PO ONE (08:49)
[2020-02-01] MEDS: Insulin LISPRO 300 UNITS/3 ML VIAL SQ SCH ×4 (08:51→20:22)
[2020-02-01] MEDS: Spironolactone 25 MG TABLET PO SCH (08:54)
[2020-02-01] MEDS: Azithromycin 250 MG TABLET PO SCH (08:54)
[2020-02-01] MEDS: Apixaban 5 MG TABLET PO SCH ×2 (08:55→20:21)
[2020-02-01] MEDS: Furosemide 40 MG TABLET PO SCH (08:55)
[2020-02-01] MEDS: CarBAMazepine 100 MG TABLET PO SCH ×2 (08:55→20:21)
[2020-02-01] MEDS: PARoxetine 20 MG TABLET PO SCH (08:55)
[2020-02-01] MEDS: DilTIAZem CD (24hr) 180 MG CAP.ER.24H PO SCH (08:55)
[2020-02-01] MEDS: Isosorbide MONOnitrate (24 HR) 30 MG TAB.ER.24H PO SCH (08:56)
[2020-02-01] MEDS: Aspirin Enteric Coated 81 MG Tablet PO SCH (08:56)
[2020-02-01] MEDS: predniSONE 20 MG TABLET PO SCH (08:56)
[2020-02-01] MEDS ORDERED: Perflutren Lipid Microsphere 1.3 ML in 0.9 % Sodium Chloride 8.7 ML IVP PRN (09:03)
[2020-02-01] MEDS ORDERED: Ipratropium Neb 0.5 MG NEBULIZER IH PRN (09:14)
[2020-02-01] MEDS ORDERED: Levalbuterol Neb 0.63 MG/3 ML IH PRN (09:14)
[2020-02-01] MEDS ORDERED: Aspirin 325 MG TABLET PO ONE (09:15)
[2020-02-01] MEDS: Insulin DETEMIR 100 UNIT/ML X5UNITS SQ SCH ×2 (10:29→20:21)
[2020-02-01] MEDS: Nystatin POWDER 30 GM BOTTLE TP SCH ×2 (10:44→14:06)
[2020-02-02 04:26] LABS: ABG Base Excess 15 mEq/L (-2 to 3); ABG HCO3 45 mEq/L (21-27); ABG Oxygen Saturation 96 % (95-98); ABG PCO2 80 mmHg (35-45); ABG PH 7.36 pH Units (7.32-7.45); ABG PO2 88 mmHg (85-104); ABG TCO2 48 mEq/L (20-26)
[2020-02-02] MEDS ORDERED: Regadenoson 0.4 MG/5 ML SYRINGE IVP ONE (06:31)
[2020-02-02 07:21] LABS: Eosinophils % 0.6 %; Hematocrit 43.3 % (35.3-44.9); Hemoglobin 12.8 g/dL (11.5-15.4); Immature Granulocytes % 0.2 % (0-4); Lymphocytes # 2.3 K/mcL (0.6-4.6); Lymphocytes % 36.4 %; Mean Corpuscular HGB Conc 29.6 g/dL (31.6-35.5); Mean Corpuscular Hemoglobin 29.2 pg (28.0-33.3); Mean Corpuscular Volume 98.6 fL (83.0-100.0); Mean Platelet Volume 9.8 fL (9.4-12.4); Monocytes % 16.4 %; Neutrophils # 2.9 K/mcL (1.6-8.9); Platelet Count 212 K/mcL (140-400); Red Blood Count 4.39 M/mcL (3.82-4.97); Red Cell Distribution Width 14.6 % (11.5-14.5); Segmented Neutrophils % 46.4 %; White Blood Count 6.3 K/mcL (4.3-11.1)
[2020-02-02] MEDS: Nystatin POWDER 30 GM BOTTLE TP SCH ×4 (07:36→20:30)
[2020-02-02] MEDS: Insulin LISPRO 300 UNITS/3 ML VIAL SQ SCH ×3 (07:36→17:54)
[2020-02-02 07:50] LABS: BUN/Creatinine Ratio 58 (6-26); Blood Urea Nitrogen 29 mg/dL (8-23); Calcium 9.1 mg/dL (8.6-10.3); Carbon Dioxide 40 mEq/L (23-29); Chloride 96 mEq/L (98-107); Glucose 162 mg/dL (70-105); Magnesium 1.8 mg/dL (1.6-2.6); Osmolality,Calculated 297 (280-300); Potassium 4.1 mEq/L (3.5-5.1); Sodium 139 mEq/L (136-145); eGFR For African Americans > 60 (> 60); eGFR For Non-African Americans > 60 (> 60)
[2020-02-02] MEDS: Budesonide/Formoterol 160/4.5 1 PUFF INH IH SCH ×2 (07:50→22:19)
[2020-02-02 08:20] LABS: Estimated Average Glucose 275 mg/dl
[2020-02-02] MEDS: Isosorbide MONOnitrate (24 HR) 30 MG TAB.ER.24H PO SCH (11:16)
[2020-02-02] MEDS: predniSONE 20 MG TABLET PO SCH (11:16)
[2020-02-02] MEDS: Insulin DETEMIR 100 UNIT/ML X5UNITS SQ SCH ×2 (11:16→20:29)
[2020-02-02] MEDS: PARoxetine 20 MG TABLET PO SCH (11:17)
[2020-02-02] MEDS: Furosemide 40 MG TABLET PO SCH (11:17)
[2020-02-02] MEDS: DilTIAZem CD (24hr) 180 MG CAP.ER.24H PO SCH (11:17)
[2020-02-02] MEDS: Apixaban 5 MG TABLET PO SCH ×2 (11:17→20:29)
[2020-02-02] MEDS: Azithromycin 250 MG TABLET PO SCH (11:17)
[2020-02-02] MEDS: Spironolactone 25 MG TABLET PO SCH (11:17)
[2020-02-02] MEDS: CarBAMazepine 100 MG TABLET PO SCH ×2 (11:17→20:29)
[2020-02-02] MEDS: lisinopriL 5 MG TABLET PO SCH (11:17)
[2020-02-02] MEDS: Aspirin Enteric Coated 81 MG Tablet PO SCH (11:17)
[2020-02-03 04:53] LABS: ABG Base Excess 16 mEq/L (-2 to 3); ABG HCO3 46 mEq/L (21-27); ABG Oxygen Saturation 96 % (95-98); ABG PCO2 78 mmHg (35-45); ABG PH 7.38 pH Units (7.32-7.45); ABG PO2 89 mmHg (85-104); ABG TCO2 49 mEq/L (20-26)
[2020-02-03 05:23] LABS: Basophils % 0.2 %; Eosinophils % 0.7 %; Hemoglobin 13.1 g/dL (11.5-15.4); Immature Granulocytes % 0.3 % (0-4); Lymphocytes # 2.1 K/mcL (0.6-4.6); Lymphocytes % 35.4 %; Mean Corpuscular HGB Conc 29.8 g/dL (31.6-35.5); Mean Corpuscular Hemoglobin 28.4 pg (28.0-33.3); Mean Corpuscular Volume 95.4 fL (83.0-100.0); Mean Platelet Volume 10.1 fL (9.4-12.4); Monocytes # 0.8 K/mcL (0.0-1.3); Monocytes % 13.2 %; Platelet Count 226 K/mcL (140-400); Red Blood Count 4.61 M/mcL (3.82-4.97); Red Cell Distribution Width 14.4 % (11.5-14.5); Segmented Neutrophils % 50.2 %; White Blood Count 6.1 K/mcL (4.3-11.1)
[2020-02-03 05:46] LABS: BUN/Creatinine Ratio 40 (6-26); Blood Urea Nitrogen 23 mg/dL (8-23); Calcium 9.5 mg/dL (8.6-10.3); Carbon Dioxide 44 mEq/L (23-29); Chloride 93 mEq/L (98-107); Glucose 208 mg/dL (70-105); Magnesium 1.7 mg/dL (1.6-2.6); Osmolality,Calculated 298 (280-300); Potassium 3.9 mEq/L (3.5-5.1); Sodium 139 mEq/L (136-145); eGFR For African Americans > 60 (> 60); eGFR For Non-African Americans > 60 (> 60)
[2020-02-03] MEDS: Budesonide/Formoterol 160/4.5 1 PUFF INH IH SCH ×2 (07:37→22:10)
[2020-02-03] MEDS: Aspirin Enteric Coated 81 MG Tablet PO SCH (09:31)
[2020-02-03] MEDS: Furosemide 40 MG TABLET PO SCH (09:31)
[2020-02-03] MEDS: lisinopriL 5 MG TABLET PO SCH (09:31)
[2020-02-03] MEDS: CarBAMazepine 100 MG TABLET PO SCH ×2 (09:32→21:01)
[2020-02-03] MEDS: DilTIAZem CD (24hr) 180 MG CAP.ER.24H PO SCH (09:32)
[2020-02-03] MEDS: Isosorbide MONOnitrate (24 HR) 30 MG TAB.ER.24H PO SCH (09:32)
[2020-02-03] MEDS: Spironolactone 25 MG TABLET PO SCH (09:32)
[2020-02-03] MEDS: PARoxetine 20 MG TABLET PO SCH (09:32)
[2020-02-03] MEDS: Apixaban 5 MG TABLET PO SCH ×2 (09:32→21:01)
[2020-02-03] MEDS: predniSONE 20 MG TABLET PO SCH (09:32)
[2020-02-03] MEDS: Insulin DETEMIR 100 UNIT/ML X5UNITS SQ SCH ×2 (09:32→21:00)
[2020-02-03] MEDS: Nystatin POWDER 30 GM BOTTLE TP SCH ×3 (09:33→21:01)
[2020-02-03] MEDS: Insulin LISPRO 300 UNITS/3 ML VIAL SQ SCH ×3 (09:33→17:43)
[2020-02-04 04:53] LABS: Basophils % 0.2 %; Eosinophils # 0.1 K/mcL (0.0-0.6); Eosinophils % 1.1 %; Hematocrit 44.2 % (35.3-44.9); Hemoglobin 13.1 g/dL (11.5-15.4); Immature Granulocytes % 0.3 % (0-4); Lymphocytes # 2.3 K/mcL (0.6-4.6); Lymphocytes % 37.2 %; Mean Corpuscular HGB Conc 29.6 g/dL (31.6-35.5); Mean Corpuscular Hemoglobin 28.7 pg (28.0-33.3); Mean Corpuscular Volume 96.7 fL (83.0-100.0); Mean Platelet Volume 9.9 fL (9.4-12.4); Monocytes # 0.7 K/mcL (0.0-1.3); Monocytes % 10.6 %; Neutrophils # 3.1 K/mcL (1.6-8.9); Platelet Count 221 K/mcL (140-400); Red Blood Count 4.57 M/mcL (3.82-4.97); Red Cell Distribution Width 14.4 % (11.5-14.5); Segmented Neutrophils % 50.6 %; White Blood Count 6.2 K/mcL (4.3-11.1)
[2020-02-04 05:16] LABS: BUN/Creatinine Ratio 53 (6-26); Blood Urea Nitrogen 27 mg/dL (8-23); Calcium 9.2 mg/dL (8.6-10.3); Carbon Dioxide 44 mEq/L (23-29); Chloride 95 mEq/L (98-107); Glucose 189 mg/dL (70-105); Magnesium 1.7 mg/dL (1.6-2.6); Osmolality,Calculated 302 (280-300); Potassium 3.8 mEq/L (3.5-5.1); Sodium 141 mEq/L (136-145); eGFR For African Americans > 60 (> 60); eGFR For Non-African Americans > 60 (> 60)
[2020-02-04] MEDS: CarBAMazepine 100 MG TABLET PO SCH ×2 (09:48→19:37)
[2020-02-04] MEDS: Insulin LISPRO 300 UNITS/3 ML VIAL SQ SCH ×4 (09:48→19:42)
[2020-02-04] MEDS: Aspirin Enteric Coated 81 MG Tablet PO SCH (09:48)
[2020-02-04] MEDS: predniSONE 20 MG TABLET PO SCH (09:48)
[2020-02-04] MEDS: Isosorbide MONOnitrate (24 HR) 30 MG TAB.ER.24H PO SCH (09:49)
[2020-02-04] MEDS: lisinopriL 5 MG TABLET PO SCH (09:49)
[2020-02-04] MEDS: Apixaban 5 MG TABLET PO SCH ×2 (09:49→19:37)
[2020-02-04] MEDS: Spironolactone 25 MG TABLET PO SCH (09:49)
[2020-02-04] MEDS: PARoxetine 20 MG TABLET PO SCH (09:49)
[2020-02-04] MEDS: DilTIAZem CD (24hr) 180 MG CAP.ER.24H PO SCH (09:49)
[2020-02-04] MEDS: Furosemide 40 MG TABLET PO SCH (09:49)
[2020-02-04] MEDS: Nystatin POWDER 30 GM BOTTLE TP SCH ×3 (09:50→19:37)
[2020-02-04] MEDS: Insulin DETEMIR 100 UNIT/ML X5UNITS SQ SCH ×2 (09:56→21:55)
[2020-02-04] MEDS: Budesonide/Formoterol 160/4.5 1 PUFF INH IH SCH ×2 (10:26→19:59)
[2020-02-05 02:19] LABS: Basophils % 0.1 %; Eosinophils % 0.6 %; Hematocrit 44.4 % (35.3-44.9); Hemoglobin 13.4 g/dL (11.5-15.4); Immature Granulocytes % 0.1 % (0-4); Lymphocytes # 2.4 K/mcL (0.6-4.6); Lymphocytes % 34.5 %; Mean Corpuscular HGB Conc 30.2 g/dL (31.6-35.5); Mean Corpuscular Hemoglobin 28.8 pg (28.0-33.3); Mean Corpuscular Volume 95.3 fL (83.0-100.0); Mean Platelet Volume 10.1 fL (9.4-12.4); Monocytes # 0.6 K/mcL (0.0-1.3); Monocytes % 8.5 %; Neutrophils # 3.8 K/mcL (1.6-8.9); Platelet Count 231 K/mcL (140-400); Red Blood Count 4.66 M/mcL (3.82-4.97); Red Cell Distribution Width 14.1 % (11.5-14.5); Segmented Neutrophils % 56.2 %; White Blood Count 6.8 K/mcL (4.3-11.1)
[2020-02-05 02:26] LABS: VBG HCO3 41 mEq/L (21-27); VBG PCO2 61 mmHg (41-51); VBG PH 7.43 pH Units (7.32-7.42); VBG PO2 209 mmHg (25-50)
[2020-02-05 02:36] LABS: BUN/Creatinine Ratio 45 (6-26); Blood Urea Nitrogen 22 mg/dL (8-23); Calcium 9.2 mg/dL (8.6-10.3); Carbon Dioxide 44 mEq/L (23-29); Chloride 95 mEq/L (98-107); Glucose 104 mg/dL (70-105); Magnesium 1.7 mg/dL (1.6-2.6); Osmolality,Calculated 296 (280-300); Sodium 141 mEq/L (136-145); eGFR For African Americans > 60 (> 60); eGFR For Non-African Americans > 60 (> 60)
[2020-02-05] MEDS: Insulin LISPRO 300 UNITS/3 ML VIAL SQ SCH ×4 (08:35→20:24)
[2020-02-05] MEDS ORDERED: Acetaminophen 325 MG TABLET PO PRN (08:48)
[2020-02-05] MEDS: predniSONE 20 MG TABLET PO SCH (08:50)
[2020-02-05] MEDS: Furosemide 40 MG TABLET PO SCH (08:50)
[2020-02-05] MEDS: DilTIAZem CD (24hr) 180 MG CAP.ER.24H PO SCH (08:50)
[2020-02-05] MEDS: Apixaban 5 MG TABLET PO SCH ×2 (08:50→20:24)
[2020-02-05] MEDS: CarBAMazepine 100 MG TABLET PO SCH ×2 (08:50→20:24)
[2020-02-05] MEDS: lisinopriL 5 MG TABLET PO SCH (08:50)
[2020-02-05] MEDS: PARoxetine 20 MG TABLET PO SCH (08:50)
[2020-02-05] MEDS: Spironolactone 25 MG TABLET PO SCH (08:50)
[2020-02-05] MEDS: Aspirin Enteric Coated 81 MG Tablet PO SCH (08:50)
[2020-02-05] MEDS: Insulin DETEMIR 100 UNIT/ML X5UNITS SQ SCH ×2 (08:51→20:24)
[2020-02-05] MEDS: Isosorbide MONOnitrate (24 HR) 30 MG TAB.ER.24H PO SCH (08:51)
[2020-02-05] MEDS: Nystatin POWDER 30 GM BOTTLE TP SCH ×3 (08:52→20:25)
[2020-02-05] MEDS: Budesonide/Formoterol 160/4.5 1 PUFF INH IH SCH ×2 (10:31→23:21)
[2020-02-06 05:59] LABS: BUN/Creatinine Ratio 59 (6-26); Blood Urea Nitrogen 37 mg/dL (8-23); Calcium 8.8 mg/dL (8.6-10.3); Carbon Dioxide 38 mEq/L (23-29); Chloride 95 mEq/L (98-107); Glucose 235 mg/dL (70-105); Osmolality,Calculated 298 (280-300); Sodium 136 mEq/L (136-145); eGFR For African Americans > 60 (> 60); eGFR For Non-African Americans > 60 (> 60)
[2020-02-06] MEDS: Budesonide/Formoterol 160/4.5 1 PUFF INH IH SCH (07:29)
[2020-02-06] MEDS: CarBAMazepine 100 MG TABLET PO SCH (08:01)
[2020-02-06] MEDS: Isosorbide MONOnitrate (24 HR) 30 MG TAB.ER.24H PO SCH (08:01)
[2020-02-06] MEDS: PARoxetine 20 MG TABLET PO SCH (08:01)
[2020-02-06] MEDS: DilTIAZem CD (24hr) 180 MG CAP.ER.24H PO SCH (08:01)
[2020-02-06] MEDS: Furosemide 40 MG TABLET PO SCH (08:01)
[2020-02-06] MEDS: Aspirin Enteric Coated 81 MG Tablet PO SCH (08:01)
[2020-02-06] MEDS: lisinopriL 5 MG TABLET PO SCH (08:01)
[2020-02-06] MEDS: Apixaban 5 MG TABLET PO SCH (08:01)
[2020-02-06] MEDS: Spironolactone 25 MG TABLET PO SCH (08:02)
[2020-02-06] MEDS: Insulin LISPRO 300 UNITS/3 ML VIAL SQ SCH ×3 (08:02→17:26)
[2020-02-06] MEDS: Nystatin POWDER 30 GM BOTTLE TP SCH ×2 (08:06→17:22)
[2020-02-06] MEDS: Insulin DETEMIR 100 UNIT/ML X5UNITS SQ SCH (08:06)
[2020-02-06 15:37] VITALS: BP 109/53
== END 2020-02-06 19:48 | disposition home health service (06) | DRG 291 ==
LOC: 2ANU 07:47 → EMEROOARM 07:47 → SUATTDRO 11:35 → 2ANU 12:30 → ICNU 16:40 → 2ANU 01-31 16:00
PROVIDERS: ADMIT Internal Medicine; ATTEND Internal Medicine

== ENCOUNTER 2020-03-02 01:37 | Inpatient (IN) ==
[2020-03-02 02:18] LABS: INR 1.1
[2020-03-02 02:19] LABS: Basophils % 0.2 %; Eosinophils # 0.1 K/mcL (0.0-0.6); Eosinophils % 0.7 %; Hematocrit 42.8 % (35.3-44.9); Hemoglobin 12.5 g/dL (11.5-15.4); Immature Granulocytes % 0.6 % (0-4); Lymphocytes # 1.5 K/mcL (0.6-4.6); Lymphocytes % 16.9 %; Mean Corpuscular HGB Conc 29.2 g/dL (31.6-35.5); Mean Corpuscular Hemoglobin 28.3 pg (28.0-33.3); Mean Corpuscular Volume 96.8 fL (83.0-100.0); Mean Platelet Volume 9.5 fL (9.4-12.4); Monocytes # 0.8 K/mcL (0.0-1.3); Monocytes % 9.1 %; Neutrophils # 6.4 K/mcL (1.6-8.9); Platelet Count 256 K/mcL (140-400); Red Blood Count 4.42 M/mcL (3.82-4.97); Red Cell Distribution Width 15.5 % (11.5-14.5); Segmented Neutrophils % 72.5 %; White Blood Count 8.9 K/mcL (4.3-11.1)
[2020-03-02 02:22] LABS: Activated Partial Thrombo Time 30.3 Seconds (26.0-36.0)
[2020-03-02 02:38] LABS: Alanine Aminotransferase 15 Units/L (7-52); Albumin 3.6 g/dL (3.5-5.7); Alkaline Phosphatase 131 Units/L (34-104); Aspartate Amino Transferase 15 Units/L (13-39); BUN/Creatinine Ratio 19 (6-26); Bilirubin,Direct 0.1 mg/dL (0.0-0.2); Bilirubin,Indirect 0.2 mg/dL (0.0-1.0); Bilirubin,Total 0.3 mg/dL (0.3-1.0); Blood Urea Nitrogen 13 mg/dL (8-23); Calcium 9.5 mg/dL (8.6-10.3); Carbon Dioxide 37 mEq/L (23-29); Chloride 95 mEq/L (98-107); Globulin 3.5 g/dL (2.4-3.5); Glucose 180 mg/dL (70-105); Osmolality,Calculated 291 (280-300); Potassium 4.6 mEq/L (3.5-5.1); Sodium 138 mEq/L (136-145); Total Protein 7.1 g/dL (6.4-8.9); Troponin I 0.03 ng/mL (< 0.04); eGFR For African Americans > 60 (> 60); eGFR For Non-African Americans > 60 (> 60)
[2020-03-02] MEDS ORDERED: methylPREDNISolone 125 MG/2 ML VIAL IVP ONE (02:46)
[2020-03-02] MEDS ORDERED: Ipratropium 1 PUFF INHALER IH ONE (02:47)
[2020-03-02] MEDS ORDERED: Furosemide 40 MG/4 ML VIAL IVP ONE (02:49)
[2020-03-02 03:01] LABS: Adenovirus Not Detected (Not Detect); Bordetella Pertussis Not Detected (Not Detect); Chlamydophila pneumoniae Not Detected (Not Detect); Coronavirus 229E Not Detected (Not Detect); Coronavirus HKU1 Not Detected (Not Detect); Coronavirus NL63 Not Detected (Not Detect); Coronavirus OC43 Not Detected (Not Detect); Human Metapneumovirus Not Detected (Not Detect); Human Rhinovirus/Enterovirus Not Detected (Not Detect); Influenza A Subtype 2009 H1 Not Detected (Not Detect); Influenza B Not Detected (Not Detect); Mycoplasma pneumoniae Not Detected (Not Detect); Parainfluenza Virus 1 Not Detected (Not Detect); Parainfluenza Virus 2 Not Detected (Not Detect); Parainfluenza Virus 3 Not Detected (Not Detect); Parainfluenza Virus 4 Not Detected (Not Detect); Respiratory Syncytial Virus Not Detected (Not Detect); SARS-CoV-2 Not Detected (Not Detect)
[2020-03-02 03:46] LABS: VBG HCO3 38 mEq/L (21-27); VBG PCO2 79 mmHg (41-51); VBG PH 7.29 pH Units (7.32-7.42); VBG PO2 51 mmHg (25-50)
[2020-03-02] MEDS ORDERED: Azithromycin 500 MG in 0.9 % Sodium Chloride 250 ML IVPB ONE (04:24)
[2020-03-02] MEDS ORDERED: Naloxone 0.4 MG/ML INJ IVP PRN (05:38)
[2020-03-02] MEDS ORDERED: Albuterol 2.5 MG/3 ML NEBULIZER IH PRN (05:44)
[2020-03-02] MEDS ORDERED: *HR* Dextrose 50 % in Water (Vial) 50 ML VIAL IVP PRN (05:47)
[2020-03-02] MEDS ORDERED: D5% in Water 1,000 ML IVC PRN (05:47)
[2020-03-02] MEDS ORDERED: Dextrose Gel 15 GM/37.5 ML TUBE PO PRN ×2 (05:47)
[2020-03-02] MEDS ORDERED: MethylPREDNISolone 40 MG/ML VIAL IVP SCH (06:00)
[2020-03-02] MEDS ORDERED: *HR* Metoprolol 5 MG/5 ML VIAL IVP PRN (07:24)
[2020-03-02] MEDS ORDERED: Insulin LISPRO 300 UNITS/3 ML VIAL SQ SCH (07:30)
[2020-03-02] MEDS: Aspirin Enteric Coated 81 MG Tablet PO SCH (08:42)
[2020-03-02] MEDS: PARoxetine 20 MG TABLET PO SCH (08:42)
[2020-03-02] MEDS: CarBAMazepine 100 MG TABLET PO SCH ×2 (08:42→21:09)
[2020-03-02] MEDS: Apixaban 5 MG TABLET PO SCH ×2 (08:43→21:09)
[2020-03-02] MEDS: lisinopriL 5 MG TABLET PO SCH (08:43)
[2020-03-02] MEDS: DilTIAZem CD (24hr) 180 MG CAP.ER.24H PO SCH (08:46)
[2020-03-02] MEDS: Spironolactone 25 MG TABLET PO SCH (08:46)
[2020-03-02] MEDS: Furosemide 20 MG/2 ML VIAL IVP SCH ×2 (08:46→21:10)
[2020-03-02] MEDS: Ipratropium/Albuterol Neb 3 ML IH SCH ×3 (11:07→23:54)
[2020-03-02] MEDS: Insulin LISPRO 300 UNITS/3 ML VIAL SQ SCH ×3 (11:51→21:10)
[2020-03-02] MEDS: MethylPREDNISolone 40 MG/ML VIAL IVP SCH ×2 (11:52→21:09)
[2020-03-02] MEDS: Insulin DETEMIR 100 UNIT/ML X5UNITS SQ SCH ×2 (11:52→21:09)
[2020-03-02 23:37] LABS: Bilirubin,Urine Negative (Negative); Blood,Urine Negative (Negative); Clarity,Urine Clear (Clear); Color,Urine Light-Yellow (Yellow); Glucose,Urine (UA) 500 mg/dL (Normal); Hyaline Casts,Urine Few per lpf (None Seen); Ketones,Urine Negative (Negative); Leukocyte Esterase,Urine Negative (Negative); Mucus,Urine Few per lpf (None-Few); Nitrite,Urine Negative (Negative); Protein,Urine 70 mg/dL (Neg-Trace); RBC,Urine 0-3 per hpf (0-3); Specific Gravity,Urine 1.014 (1.010-1.025); Squamous Epithelial Cell,Urine Few per hpf (None-Few); Urobilinogen,Urine Normal (Normal); WBC,Urine 0-3 per hpf (0-3)
[2020-03-03 01:20] LABS: Basophils % 0.3 %; Hematocrit 41.6 % (35.3-44.9); Hemoglobin 12.3 g/dL (11.5-15.4); Immature Granulocytes % 0.8 % (0-4); Lymphocytes # 0.9 K/mcL (0.6-4.6); Lymphocytes % 12.7 %; Mean Corpuscular HGB Conc 29.6 g/dL (31.6-35.5); Mean Corpuscular Hemoglobin 28.4 pg (28.0-33.3); Mean Corpuscular Volume 96.1 fL (83.0-100.0); Mean Platelet Volume 9.8 fL (9.4-12.4); Monocytes # 0.4 K/mcL (0.0-1.3); Monocytes % 5.3 %; Platelet Count 264 K/mcL (140-400); Red Blood Count 4.33 M/mcL (3.82-4.97); Red Cell Distribution Width 15.3 % (11.5-14.5); Segmented Neutrophils % 80.9 %; White Blood Count 7.4 K/mcL (4.3-11.1)
[2020-03-03 01:39] LABS: Alanine Aminotransferase 18 Units/L (7-52); Albumin 3.6 g/dL (3.5-5.7); Albumin/Globulin Ratio 1.1 (1.1-2.2); Alkaline Phosphatase 125 Units/L (34-104); Aspartate Amino Transferase 12 Units/L (13-39); BUN/Creatinine Ratio 48 (6-26); Bilirubin,Total 0.2 mg/dL (0.3-1.0); Blood Urea Nitrogen 30 mg/dL (8-23); Calcium 9.8 mg/dL (8.6-10.3); Carbon Dioxide 35 mEq/L (23-29); Chloride 97 mEq/L (98-107); Globulin 3.4 g/dL (2.4-3.5); Glucose 314 mg/dL (70-105); Osmolality,Calculated 306 (280-300); Potassium 5.2 mEq/L (3.5-5.1); Sodium 139 mEq/L (136-145); eGFR For African Americans > 60 (> 60); eGFR For Non-African Americans > 60 (> 60)
[2020-03-03] MEDS ORDERED: Azithromycin 500 MG in 0.9 % Sodium Chloride 250 ML IVPB SCH (04:00)
[2020-03-03] MEDS: Ipratropium/Albuterol Neb 3 ML IH SCH ×4 (04:18→21:33)
[2020-03-03] MEDS: MethylPREDNISolone 40 MG/ML VIAL IVP SCH (05:07)
[2020-03-03] MEDS: Aspirin Enteric Coated 81 MG Tablet PO SCH (07:40)
[2020-03-03] MEDS: DilTIAZem CD (24hr) 180 MG CAP.ER.24H PO SCH (07:40)
[2020-03-03] MEDS: lisinopriL 5 MG TABLET PO SCH (07:40)
[2020-03-03] MEDS: Insulin LISPRO 300 UNITS/3 ML VIAL SQ SCH ×6 (07:41→21:11)
[2020-03-03] MEDS: Furosemide 20 MG/2 ML VIAL IVP SCH (07:41)
[2020-03-03] MEDS: Spironolactone 25 MG TABLET PO SCH (07:41)
[2020-03-03] MEDS: PARoxetine 20 MG TABLET PO SCH (07:41)
[2020-03-03] MEDS: Apixaban 5 MG TABLET PO SCH ×2 (07:41→21:11)
[2020-03-03] MEDS: CarBAMazepine 100 MG TABLET PO SCH ×2 (07:41→21:11)
[2020-03-03] MEDS: Azithromycin 250 MG TABLET PO SCH (07:41)
[2020-03-03] MEDS: Insulin DETEMIR 100 UNIT/ML X5UNITS SQ SCH (07:47)
[2020-03-03] MEDS ORDERED: ALPRAZolam 1 MG TABLET PO PRN (07:55)
[2020-03-03] MEDS ORDERED: Fluticasone Propionate Nasal 50 MCG/SPRAY BOTTLE NS PRN (07:55)
[2020-03-03] MEDS ORDERED: Furosemide 20 MG/2 ML VIAL IVP ONE (08:31)
[2020-03-03] MEDS ORDERED: Insulin DETEMIR 100 UNIT/ML X5UNITS SQ ONE (08:32)
[2020-03-03] MEDS ORDERED: Furosemide 20 MG/2 ML VIAL IVP SCH ×2 (09:00→21:00)
[2020-03-03] MEDS ORDERED: Insulin DETEMIR 100 UNIT/ML X5UNITS SQ SCH ×2 (09:00→21:00)
[2020-03-03] MEDS: Isosorbide MONOnitrate (24 HR) 30 MG TAB.ER.24H PO SCH (09:38)
[2020-03-03] MEDS: Cholecalciferol (D-3) 1,000 UNIT (25MCG) TABLET PO SCH (09:38)
[2020-03-03] MEDS: Budesonide/Formoterol 160/4.5 1 PUFF INH IH SCH ×2 (11:39→21:33)
[2020-03-04] MEDS: Ipratropium/Albuterol Neb 3 ML IH SCH ×2 (04:06→11:28)
[2020-03-04 04:07] LABS: Hematocrit 38.9 % (35.3-44.9); Hemoglobin 11.7 g/dL (11.5-15.4); Mean Corpuscular HGB Conc 30.1 g/dL (31.6-35.5); Mean Corpuscular Volume 96.5 fL (83.0-100.0); Mean Platelet Volume 9.6 fL (9.4-12.4); Platelet Count 286 K/mcL (140-400); Red Blood Count 4.03 M/mcL (3.82-4.97); Red Cell Distribution Width 15.8 % (11.5-14.5); White Blood Count 8.8 K/mcL (4.3-11.1)
[2020-03-04 04:11] LABS: VBG HCO3 35 mEq/L (21-27); VBG PCO2 51 mmHg (41-51); VBG PH 7.45 pH Units (7.32-7.42); VBG PO2 163 mmHg (25-50)
[2020-03-04 04:59] LABS: BUN/Creatinine Ratio 76 (6-26); Blood Urea Nitrogen 45 mg/dL (8-23); Calcium 9.5 mg/dL (8.6-10.3); Carbon Dioxide 35 mEq/L (23-29); Chloride 97 mEq/L (98-107); Glucose 132 mg/dL (70-105); Osmolality,Calculated 301 (280-300); Potassium 4.4 mEq/L (3.5-5.1); Sodium 139 mEq/L (136-145); eGFR For African Americans > 60 (> 60); eGFR For Non-African Americans > 60 (> 60)
[2020-03-04 07:16] VITALS: BP 122/78
[2020-03-04] MEDS: Insulin LISPRO 300 UNITS/3 ML VIAL SQ SCH ×2 (07:45→08:12)
[2020-03-04] MEDS: PARoxetine 20 MG TABLET PO SCH (08:13)
[2020-03-04] MEDS: Azithromycin 250 MG TABLET PO SCH (08:13)
[2020-03-04] MEDS: DilTIAZem CD (24hr) 180 MG CAP.ER.24H PO SCH (08:13)
[2020-03-04] MEDS: Apixaban 5 MG TABLET PO SCH (08:13)
[2020-03-04] MEDS: Isosorbide MONOnitrate (24 HR) 30 MG TAB.ER.24H PO SCH (08:13)
[2020-03-04] MEDS: Aspirin Enteric Coated 81 MG Tablet PO SCH (08:13)
[2020-03-04] MEDS: Cholecalciferol (D-3) 1,000 UNIT (25MCG) TABLET PO SCH (08:13)
[2020-03-04] MEDS: CarBAMazepine 100 MG TABLET PO SCH (08:13)
[2020-03-04] MEDS ORDERED: MethylPREDNISolone 40 MG/ML VIAL IVP SCH (09:00)
[2020-03-04] MEDS ORDERED: Furosemide 40 MG/4 ML VIAL IVP SCH (09:00)
[2020-03-04] MEDS: Budesonide/Formoterol 160/4.5 1 PUFF INH IH SCH (11:28)
[2020-03-04] MEDS ORDERED: Insulin DETEMIR 100 UNIT/ML X5UNITS SQ SCH (21:00)
== END 2020-03-04 14:12 | disposition home health service (06) | DRG 291 ==
LOC: 2ANU 01:37 → EMEROOARM 01:37 → SUATTDRO 05:51 → 2ANU 06:24
PROVIDERS: ADMIT Internal Medicine; ATTEND Internal Medicine

== ENCOUNTER 2020-03-08 03:59 | Inpatient (IN) ==
[2020-03-08] MEDS ORDERED: methylPREDNISolone 125 MG/2 ML VIAL IVP ONE (04:32)
[2020-03-08] MEDS ORDERED: Ipratropium/Albuterol Neb 3 ML IH ONE (04:32)
[2020-03-08 04:41] LABS: Basophils % 0.2 %; Eosinophils # 0.1 K/mcL (0.0-0.6); Eosinophils % 0.7 %; Hemoglobin 13.1 g/dL (11.5-15.4); Immature Granulocytes % 0.3 % (0-4); Lymphocytes # 2.5 K/mcL (0.6-4.6); Lymphocytes % 25.8 %; Mean Corpuscular HGB Conc 30.5 g/dL (31.6-35.5); Mean Corpuscular Hemoglobin 28.7 pg (28.0-33.3); Mean Corpuscular Volume 94.3 fL (83.0-100.0); Mean Platelet Volume 9.6 fL (9.4-12.4); Monocytes # 0.9 K/mcL (0.0-1.3); Monocytes % 8.8 %; Neutrophils # 6.2 K/mcL (1.6-8.9); Platelet Count 266 K/mcL (140-400); Red Blood Count 4.56 M/mcL (3.82-4.97); Red Cell Distribution Width 15.7 % (11.5-14.5); Segmented Neutrophils % 64.2 %; White Blood Count 9.6 K/mcL (4.3-11.1)
[2020-03-08 04:48] LABS: INR 1.1; Prothrombin Time 12.5 Seconds (9.4-12.1)
[2020-03-08 04:51] LABS: Activated Partial Thrombo Time 26.6 Seconds (26.0-36.0)
[2020-03-08 04:54] LABS: Alanine Aminotransferase 13 Units/L (7-52); Albumin 3.5 g/dL (3.5-5.7); Albumin/Globulin Ratio 1.1 (1.1-2.2); Alkaline Phosphatase 115 Units/L (34-104); Aspartate Amino Transferase 11 Units/L (13-39); BUN/Creatinine Ratio 22 (6-26); Bilirubin,Direct 0.1 mg/dL (0.0-0.2); Bilirubin,Indirect 0.2 mg/dL (0.0-1.0); Bilirubin,Total 0.3 mg/dL (0.3-1.0); Blood Urea Nitrogen 18 mg/dL (8-23); Calcium 9.5 mg/dL (8.6-10.3); Carbon Dioxide 37 mEq/L (23-29); Chloride 97 mEq/L (98-107); Globulin 3.2 g/dL (2.4-3.5); Glucose 270 mg/dL (70-105); Magnesium 1.6 mg/dL (1.6-2.6); Osmolality,Calculated 299 (280-300); Sodium 139 mEq/L (136-145); Total Protein 6.7 g/dL (6.4-8.9); eGFR For African Americans > 60 (> 60); eGFR For Non-African Americans > 60 (> 60)
[2020-03-08 04:55] LABS: Troponin I 0.03 ng/mL (< 0.04)
[2020-03-08] MEDS ORDERED: Furosemide 40 MG/4 ML VIAL IVP ONE (05:49)
[2020-03-08 05:55] LABS: Bilirubin,Urine Negative (Negative); Blood,Urine Negative (Negative); Clarity,Urine Clear (Clear); Color,Urine Light-Yellow (Yellow); Glucose,Urine (UA) 150 mg/dL (Normal); Hyaline Casts,Urine Few per lpf (None Seen); Ketones,Urine Negative (Negative); Leukocyte Esterase,Urine Negative (Negative); Nitrite,Urine Negative (Negative); PH,Urine 6.5 pH Units (5.0-8.0); Protein,Urine 200 mg/dL (Neg-Trace); RBC,Urine 0-3 per hpf (0-3); Specific Gravity,Urine 1.022 (1.010-1.025); Squamous Epithelial Cell,Urine Few per hpf (None-Few); Urobilinogen,Urine Normal (Normal); WBC,Urine 0-3 per hpf (0-3)
[2020-03-08 06:25] LABS: VBG HCO3 41 mEq/L (21-27); VBG PCO2 71 mmHg (41-51); VBG PH 7.36 pH Units (7.32-7.42); VBG PO2 55 mmHg (25-50)
[2020-03-08] MEDS ORDERED: Naloxone 0.4 MG/ML INJ IVP PRN (07:44)
[2020-03-08] MEDS ORDERED: Dextrose Gel 15 GM/37.5 ML TUBE PO PRN ×2 (07:47)
[2020-03-08] MEDS ORDERED: *HR* Dextrose 50 % in Water (Vial) 50 ML VIAL IVP PRN (07:47)
[2020-03-08] MEDS ORDERED: D5% in Water 1,000 ML IVC PRN (07:47)
[2020-03-08] MEDS: DilTIAZem CD (24hr) 180 MG CAP.ER.24H PO SCH ×2 (08:22→08:29)
[2020-03-08] MEDS: Insulin LISPRO 300 UNITS/3 ML VIAL SQ SCH ×5 (08:22→17:21)
[2020-03-08] MEDS: Apixaban 5 MG TABLET PO SCH ×3 (08:22→21:41)
[2020-03-08] MEDS ORDERED: Fluticasone Propionate Nasal 50 MCG/SPRAY BOTTLE NS PRN (09:05)
[2020-03-08 09:15] LABS: Chol/HDL Ratio 3.6 (0-4.9); Magnesium 1.5 mg/dL (1.6-2.6); Phosphorous 3.7 mg/dL (2.7-4.5)
[2020-03-08] MEDS: Ipratropium Neb 0.5 MG NEBULIZER IH SCH ×2 (11:07→15:57)
[2020-03-08] MEDS: Levalbuterol Neb 1.25 MG/3 ML IH SCH ×2 (11:07→15:57)
[2020-03-08] MEDS: Acetaminophen 325 MG TABLET PO PRN (12:30)
[2020-03-08 13:03] LABS: Estimated Average Glucose 269 mg/dl
[2020-03-08] MEDS: MethylPREDNISolone 40 MG/ML VIAL IVP SCH (16:22)
[2020-03-08] MEDS ORDERED: Insulin Human Regular 5 UNIT in 0.9 % Sodium Chloride 10 ML IV ONE (16:22)
[2020-03-08] MEDS: Ipratropium/Albuterol Neb 3 ML IH SCH ×2 (17:51→22:43)
[2020-03-08] MEDS ORDERED: Insulin DETEMIR 100 UNIT/ML X5UNITS SQ SCH (21:00)
[2020-03-08] MEDS: CarBAMazepine 100 MG TABLET PO SCH (21:41)
[2020-03-08] MEDS: Insulin DETEMIR 100 UNIT/ML X5UNITS SQ SCH (21:42)
[2020-03-08] MEDS: Budesonide/Formoterol 160/4.5 1 PUFF INH IH SCH (22:43)
[2020-03-09] MEDS: Ipratropium/Albuterol Neb 3 ML IH SCH ×4 (04:17→22:06)
[2020-03-09 04:21] LABS: Basophils % 0.1 %; Eosinophils % 0.1 %; Hematocrit 41.2 % (35.3-44.9); Hemoglobin 12.3 g/dL (11.5-15.4); Immature Granulocytes % 0.4 % (0-4); Lymphocytes # 1.5 K/mcL (0.6-4.6); Lymphocytes % 15.9 %; Mean Corpuscular HGB Conc 29.9 g/dL (31.6-35.5); Mean Corpuscular Volume 93.6 fL (83.0-100.0); Mean Platelet Volume 9.8 fL (9.4-12.4); Monocytes # 0.6 K/mcL (0.0-1.3); Monocytes % 6.3 %; Neutrophils # 7.5 K/mcL (1.6-8.9); Platelet Count 267 K/mcL (140-400); Red Cell Distribution Width 15.7 % (11.5-14.5); Segmented Neutrophils % 77.2 %; White Blood Count 9.7 K/mcL (4.3-11.1)
[2020-03-09 04:27] LABS: Alanine Aminotransferase 26 Units/L (7-52); Albumin 3.3 g/dL (3.5-5.7); Albumin/Globulin Ratio 1.1 (1.1-2.2); Alkaline Phosphatase 107 Units/L (34-104); Aspartate Amino Transferase 23 Units/L (13-39); BUN/Creatinine Ratio 48 (6-26); Bilirubin,Total 0.3 mg/dL (0.3-1.0); Blood Urea Nitrogen 25 mg/dL (8-23); Calcium 9.2 mg/dL (8.6-10.3); Carbon Dioxide 38 mEq/L (23-29); Chloride 95 mEq/L (98-107); Globulin 3.1 g/dL (2.4-3.5); Glucose 375 mg/dL (70-105); Osmolality,Calculated 302 (280-300); Phosphorous 3.5 mg/dL (2.7-4.5); Potassium 4.7 mEq/L (3.5-5.1); Sodium 136 mEq/L (136-145); Total Protein 6.4 g/dL (6.4-8.9); eGFR For African Americans > 60 (> 60); eGFR For Non-African Americans > 60 (> 60)
[2020-03-09] MEDS: DilTIAZem CD (24hr) 180 MG CAP.ER.24H PO SCH (08:58)
[2020-03-09] MEDS: Cholecalciferol (D-3) 1,000 UNIT (25MCG) TABLET PO SCH (08:58)
[2020-03-09] MEDS: Apixaban 5 MG TABLET PO SCH ×2 (08:58→20:24)
[2020-03-09] MEDS: PARoxetine 20 MG TABLET PO SCH (08:58)
[2020-03-09] MEDS: Furosemide 40 MG TABLET PO SCH (08:58)
[2020-03-09] MEDS: Isosorbide MONOnitrate (24 HR) 30 MG TAB.ER.24H PO SCH (08:58)
[2020-03-09] MEDS: Multivit/Ca/Min/Fe/FA 1 TAB TABLET PO SCH (08:58)
[2020-03-09] MEDS: Azithromycin 250 MG TABLET PO SCH (08:59)
[2020-03-09] MEDS: Aspirin Enteric Coated 81 MG Tablet PO SCH (08:59)
[2020-03-09] MEDS: Spironolactone 25 MG TABLET PO SCH (08:59)
[2020-03-09] MEDS: lisinopriL 5 MG TABLET PO SCH (08:59)
[2020-03-09] MEDS: MethylPREDNISolone 40 MG/ML VIAL IVP SCH (08:59)
[2020-03-09] MEDS: CarBAMazepine 100 MG TABLET PO SCH ×2 (08:59→20:23)
[2020-03-09] MEDS: Insulin LISPRO 300 UNITS/3 ML VIAL SQ SCH ×6 (09:00→16:38)
[2020-03-09] MEDS: Budesonide/Formoterol 160/4.5 1 PUFF INH IH SCH ×2 (10:07→22:07)
[2020-03-09] MEDS: *HR* HYDROcodone/Acet 5/325 mg TABLET PO PRN ×2 (11:45→20:33)
[2020-03-09] MEDS: Acetaminophen 325 MG TABLET PO PRN (12:57)
[2020-03-09] MEDS: Insulin DETEMIR 100 UNIT/ML X5UNITS SQ SCH (20:24)
[2020-03-10] MEDS: Ipratropium/Albuterol Neb 3 ML IH SCH ×4 (03:32→21:57)
[2020-03-10 04:31] LABS: Mean Corpuscular Hemoglobin 28.8 pg (28.0-33.3); Mean Corpuscular Volume 96.2 fL (83.0-100.0); Mean Platelet Volume 9.9 fL (9.4-12.4); Platelet Count 254 K/mcL (140-400); Red Blood Count 4.16 M/mcL (3.82-4.97); Red Cell Distribution Width 15.9 % (11.5-14.5); White Blood Count 10.2 K/mcL (4.3-11.1)
[2020-03-10 04:51] LABS: BUN/Creatinine Ratio 54 (6-26); Blood Urea Nitrogen 36 mg/dL (8-23); Carbon Dioxide 36 mEq/L (23-29); Chloride 96 mEq/L (98-107); Glucose 331 mg/dL (70-105); Osmolality,Calculated 303 (280-300); Potassium 4.4 mEq/L (3.5-5.1); Sodium 136 mEq/L (136-145); eGFR For African Americans > 60 (> 60); eGFR For Non-African Americans > 60 (> 60)
[2020-03-10] MEDS: Cholecalciferol (D-3) 1,000 UNIT (25MCG) TABLET PO SCH (08:03)
[2020-03-10] MEDS: PARoxetine 20 MG TABLET PO SCH (08:04)
[2020-03-10] MEDS: DilTIAZem CD (24hr) 180 MG CAP.ER.24H PO SCH (08:04)
[2020-03-10] MEDS: Azithromycin 250 MG TABLET PO SCH (08:04)
[2020-03-10] MEDS: CarBAMazepine 100 MG TABLET PO SCH ×2 (08:04→20:27)
[2020-03-10] MEDS: Aspirin Enteric Coated 81 MG Tablet PO SCH (08:04)
[2020-03-10] MEDS: Multivit/Ca/Min/Fe/FA 1 TAB TABLET PO SCH (08:04)
[2020-03-10] MEDS: Apixaban 5 MG TABLET PO SCH ×2 (08:04→20:28)
[2020-03-10] MEDS: Isosorbide MONOnitrate (24 HR) 30 MG TAB.ER.24H PO SCH (08:05)
[2020-03-10] MEDS: Spironolactone 25 MG TABLET PO SCH (08:06)
[2020-03-10] MEDS: lisinopriL 5 MG TABLET PO SCH (08:06)
[2020-03-10] MEDS: MethylPREDNISolone 40 MG/ML VIAL IVP SCH (08:06)
[2020-03-10] MEDS: Insulin LISPRO 300 UNITS/3 ML VIAL SQ SCH ×6 (08:07→16:32)
[2020-03-10] MEDS: Budesonide/Formoterol 160/4.5 1 PUFF INH IH SCH ×2 (10:22→21:57)
[2020-03-10] MEDS: Nystatin POWDER 30 GM BOTTLE TP SCH ×2 (13:14→20:28)
[2020-03-10] MEDS: *HR* HYDROcodone/Acet 5/325 mg TABLET PO PRN (15:03)
[2020-03-10] MEDS: Insulin DETEMIR 100 UNIT/ML X5UNITS SQ SCH (20:28)
[2020-03-11] MEDS: ALPRAZolam 1 MG TABLET PO PRN (01:23)
[2020-03-11 03:40] LABS: Basophils % 0.1 %; Eosinophils % 0.4 %; Hematocrit 40.5 % (35.3-44.9); Immature Granulocytes % 0.4 % (0-4); Lymphocytes # 2.8 K/mcL (0.6-4.6); Lymphocytes % 29.5 %; Mean Corpuscular HGB Conc 29.6 g/dL (31.6-35.5); Mean Corpuscular Hemoglobin 28.2 pg (28.0-33.3); Mean Corpuscular Volume 95.1 fL (83.0-100.0); Monocytes # 0.9 K/mcL (0.0-1.3); Monocytes % 9.7 %; Neutrophils # 5.7 K/mcL (1.6-8.9); Platelet Count 253 K/mcL (140-400); Red Blood Count 4.26 M/mcL (3.82-4.97); Segmented Neutrophils % 59.9 %; White Blood Count 9.5 K/mcL (4.3-11.1)
[2020-03-11 03:46] LABS: BUN/Creatinine Ratio 68 (6-26); Blood Urea Nitrogen 36 mg/dL (8-23); Carbon Dioxide 35 mEq/L (23-29); Chloride 98 mEq/L (98-107); Glucose 303 mg/dL (70-105); Osmolality,Calculated 304 (280-300); Potassium 4.9 mEq/L (3.5-5.1); Sodium 137 mEq/L (136-145); eGFR For African Americans > 60 (> 60); eGFR For Non-African Americans > 60 (> 60)
[2020-03-11] MEDS: Ipratropium/Albuterol Neb 3 ML IH SCH ×4 (03:52→21:49)
[2020-03-11] MEDS: Cholecalciferol (D-3) 1,000 UNIT (25MCG) TABLET PO SCH (08:01)
[2020-03-11] MEDS: Apixaban 5 MG TABLET PO SCH ×2 (08:02→20:20)
[2020-03-11] MEDS: DilTIAZem CD (24hr) 180 MG CAP.ER.24H PO SCH (08:02)
[2020-03-11] MEDS: Multivit/Ca/Min/Fe/FA 1 TAB TABLET PO SCH (08:02)
[2020-03-11] MEDS: predniSONE 20 MG TABLET PO SCH (08:02)
[2020-03-11] MEDS: Aspirin Enteric Coated 81 MG Tablet PO SCH (08:02)
[2020-03-11] MEDS: Azithromycin 250 MG TABLET PO SCH (08:02)
[2020-03-11] MEDS: lisinopriL 5 MG TABLET PO SCH (08:03)
[2020-03-11] MEDS: CarBAMazepine 100 MG TABLET PO SCH ×2 (08:03→20:20)
[2020-03-11] MEDS: Spironolactone 25 MG TABLET PO SCH (08:03)
[2020-03-11] MEDS: PARoxetine 20 MG TABLET PO SCH (08:03)
[2020-03-11] MEDS: Isosorbide MONOnitrate (24 HR) 30 MG TAB.ER.24H PO SCH (08:03)
[2020-03-11] MEDS: Insulin LISPRO 300 UNITS/3 ML VIAL SQ SCH ×6 (08:04→17:03)
[2020-03-11] MEDS: Nystatin POWDER 30 GM BOTTLE TP SCH ×2 (09:12→20:29)
[2020-03-11] MEDS: Furosemide 40 MG TABLET PO SCH ×2 (09:12→17:01)
[2020-03-11] MEDS: Budesonide/Formoterol 160/4.5 1 PUFF INH IH SCH ×2 (10:10→21:49)
[2020-03-11] MEDS: Insulin DETEMIR 100 UNIT/ML X5UNITS SQ SCH (20:34)
[2020-03-11] MEDS: *HR* HYDROcodone/Acet 5/325 mg TABLET PO PRN (20:35)
[2020-03-11] MEDS ORDERED: Insulin LISPRO 300 UNITS/3 ML VIAL SQ SCH (21:00)
[2020-03-12] MEDS: ALPRAZolam 1 MG TABLET PO PRN ×2 (01:31→16:00)
[2020-03-12] MEDS: Ipratropium/Albuterol Neb 3 ML IH SCH ×4 (03:45→22:36)
[2020-03-12 05:50] LABS: Alanine Aminotransferase 24 Units/L (7-52); Albumin 3.2 g/dL (3.5-5.7); Albumin/Globulin Ratio 1.1 (1.1-2.2); Alkaline Phosphatase 94 Units/L (34-104); Aspartate Amino Transferase 13 Units/L (13-39); BUN/Creatinine Ratio 49 (6-26); Bilirubin,Total 0.2 mg/dL (0.3-1.0); Blood Urea Nitrogen 35 mg/dL (8-23); Calcium 9.2 mg/dL (8.6-10.3); Carbon Dioxide 41 mEq/L (23-29); Chloride 95 mEq/L (98-107); Glucose 286 mg/dL (70-105); Osmolality,Calculated 304 (280-300); Potassium 4.3 mEq/L (3.5-5.1); Sodium 138 mEq/L (136-145); Total Protein 6.2 g/dL (6.4-8.9); eGFR For African Americans > 60 (> 60); eGFR For Non-African Americans > 60 (> 60)
[2020-03-12] MEDS: Insulin LISPRO 300 UNITS/3 ML VIAL SQ SCH ×6 (08:23→17:41)
[2020-03-12] MEDS: Multivit/Ca/Min/Fe/FA 1 TAB TABLET PO SCH (08:25)
[2020-03-12] MEDS: Cholecalciferol (D-3) 1,000 UNIT (25MCG) TABLET PO SCH (08:25)
[2020-03-12] MEDS: predniSONE 20 MG TABLET PO SCH (08:25)
[2020-03-12] MEDS: DilTIAZem CD (24hr) 180 MG CAP.ER.24H PO SCH (08:25)
[2020-03-12] MEDS: lisinopriL 5 MG TABLET PO SCH (08:25)
[2020-03-12] MEDS: CarBAMazepine 100 MG TABLET PO SCH ×2 (08:25→19:53)
[2020-03-12] MEDS: Isosorbide MONOnitrate (24 HR) 30 MG TAB.ER.24H PO SCH (08:25)
[2020-03-12] MEDS: Furosemide 40 MG TABLET PO SCH ×2 (08:26→16:54)
[2020-03-12] MEDS: Spironolactone 25 MG TABLET PO SCH (08:26)
[2020-03-12] MEDS: PARoxetine 20 MG TABLET PO SCH (08:26)
[2020-03-12] MEDS: Apixaban 5 MG TABLET PO SCH ×2 (08:26→19:53)
[2020-03-12] MEDS: Aspirin Enteric Coated 81 MG Tablet PO SCH (08:26)
[2020-03-12] MEDS: Nystatin POWDER 30 GM BOTTLE TP SCH ×2 (08:27→20:32)
[2020-03-12] MEDS: Budesonide/Formoterol 160/4.5 1 PUFF INH IH SCH ×2 (10:23→22:36)
[2020-03-12 10:35] LABS: ABG Base Excess 15 mEq/L (-2 to 3); ABG HCO3 44 mEq/L (21-27); ABG Oxygen Saturation 93 % (95-98); ABG PCO2 74 mmHg (35-45); ABG PH 7.38 pH Units (7.32-7.45); ABG PO2 72 mmHg (85-104); ABG TCO2 46 mEq/L (20-26)
[2020-03-12] MEDS ORDERED: Insulin LISPRO 300 UNITS/3 ML VIAL SQ SCH (11:15)
[2020-03-12] MEDS ORDERED: Insulin Human Regular 10 UNIT in 0.9 % Sodium Chloride 10 ML IV ONE (14:12)
[2020-03-12] MEDS: *HR* HYDROcodone/Acet 5/325 mg TABLET PO PRN (20:01)
[2020-03-12] MEDS ORDERED: Insulin DETEMIR 100 UNIT/ML X5UNITS SQ SCH ×2 (21:00)
[2020-03-13 02:25] LABS: BUN/Creatinine Ratio 61 (6-26); Blood Urea Nitrogen 43 mg/dL (8-23); Calcium 9.4 mg/dL (8.6-10.3); Carbon Dioxide 36 mEq/L (23-29); Chloride 93 mEq/L (98-107); Glucose 444 mg/dL (70-105); Osmolality,Calculated 312 (280-300); Potassium 4.9 mEq/L (3.5-5.1); Sodium 136 mEq/L (136-145); eGFR For African Americans > 60 (> 60); eGFR For Non-African Americans > 60 (> 60)
[2020-03-13] MEDS: Ipratropium/Albuterol Neb 3 ML IH SCH ×4 (03:36→21:01)
[2020-03-13] MEDS: Acetaminophen 325 MG TABLET PO PRN (06:51)
[2020-03-13] MEDS: Cholecalciferol (D-3) 1,000 UNIT (25MCG) TABLET PO SCH (08:08)
[2020-03-13] MEDS: Multivit/Ca/Min/Fe/FA 1 TAB TABLET PO SCH (08:09)
[2020-03-13] MEDS: Isosorbide MONOnitrate (24 HR) 30 MG TAB.ER.24H PO SCH (08:09)
[2020-03-13] MEDS: Furosemide 40 MG TABLET PO SCH ×2 (08:09→17:11)
[2020-03-13] MEDS: lisinopriL 5 MG TABLET PO SCH (08:09)
[2020-03-13] MEDS: CarBAMazepine 100 MG TABLET PO SCH ×2 (08:09→19:32)
[2020-03-13] MEDS: Spironolactone 25 MG TABLET PO SCH (08:09)
[2020-03-13] MEDS: DilTIAZem CD (24hr) 180 MG CAP.ER.24H PO SCH (08:09)
[2020-03-13] MEDS: Insulin LISPRO 300 UNITS/3 ML VIAL SQ SCH ×7 (08:10→19:34)
[2020-03-13] MEDS: Aspirin Enteric Coated 81 MG Tablet PO SCH (08:10)
[2020-03-13] MEDS: PARoxetine 20 MG TABLET PO SCH (08:10)
[2020-03-13] MEDS: Apixaban 5 MG TABLET PO SCH ×2 (08:10→19:33)
[2020-03-13] MEDS: Nystatin POWDER 30 GM BOTTLE TP SCH ×2 (08:11→19:35)
[2020-03-13] MEDS ORDERED: predniSONE 20 MG TABLET PO ONE (09:00)
[2020-03-13] MEDS: Budesonide/Formoterol 160/4.5 1 PUFF INH IH SCH ×2 (10:27→21:01)
[2020-03-13] MEDS: Insulin DETEMIR 100 UNIT/ML X5UNITS SQ SCH ×2 (19:32→20:58)
[2020-03-13] MEDS: *HR* HYDROcodone/Acet 5/325 mg TABLET PO PRN (19:35)
[2020-03-13] MEDS: ALPRAZolam 1 MG TABLET PO PRN (19:36)
[2020-03-14 01:46] LABS: BUN/Creatinine Ratio 71 (6-26); Blood Urea Nitrogen 41 mg/dL (8-23); Calcium 9.1 mg/dL (8.6-10.3); Carbon Dioxide 36 mEq/L (23-29); Chloride 95 mEq/L (98-107); Glucose 313 mg/dL (70-105); Osmolality,Calculated 304 (280-300); Potassium 3.9 mEq/L (3.5-5.1); Sodium 136 mEq/L (136-145); eGFR For African Americans > 60 (> 60); eGFR For Non-African Americans > 60 (> 60)
[2020-03-14] MEDS: Ipratropium/Albuterol Neb 3 ML IH SCH ×4 (03:36→21:16)
[2020-03-14] MEDS: Apixaban 5 MG TABLET PO SCH ×2 (09:49→20:04)
[2020-03-14] MEDS: Aspirin Enteric Coated 81 MG Tablet PO SCH (09:49)
[2020-03-14] MEDS: Isosorbide MONOnitrate (24 HR) 30 MG TAB.ER.24H PO SCH (09:49)
[2020-03-14] MEDS: Furosemide 40 MG TABLET PO SCH ×2 (09:49→16:23)
[2020-03-14] MEDS: PARoxetine 20 MG TABLET PO SCH (09:49)
[2020-03-14] MEDS: lisinopriL 5 MG TABLET PO SCH (09:49)
[2020-03-14] MEDS: Multivit/Ca/Min/Fe/FA 1 TAB TABLET PO SCH (09:49)
[2020-03-14] MEDS: DilTIAZem CD (24hr) 180 MG CAP.ER.24H PO SCH (09:49)
[2020-03-14] MEDS: *HR* HYDROcodone/Acet 5/325 mg TABLET PO PRN (09:49)
[2020-03-14] MEDS: CarBAMazepine 100 MG TABLET PO SCH ×2 (09:49→20:04)
[2020-03-14] MEDS: Nystatin POWDER 30 GM BOTTLE TP SCH ×2 (09:50→20:06)
[2020-03-14] MEDS: Cholecalciferol (D-3) 1,000 UNIT (25MCG) TABLET PO SCH (09:50)
[2020-03-14] MEDS: Insulin LISPRO 300 UNITS/3 ML VIAL SQ SCH ×7 (09:50→20:09)
[2020-03-14] MEDS: Spironolactone 25 MG TABLET PO SCH (09:50)
[2020-03-14] MEDS: Budesonide/Formoterol 160/4.5 1 PUFF INH IH SCH ×2 (09:54→21:17)
[2020-03-14] MEDS ORDERED: Nitroglycerin 0.4 MG TAB.SUBL SL PRN (13:13)
[2020-03-14] MEDS: Insulin DETEMIR 100 UNIT/ML X5UNITS SQ SCH (20:05)
[2020-03-14 21:45] LABS: ABG Base Excess 11 mEq/L (-2 to 3); ABG HCO3 39 mEq/L (21-27); ABG Oxygen Saturation 95 % (95-98); ABG PCO2 60 mmHg (35-45); ABG PH 7.41 pH Units (7.32-7.45); ABG PO2 75 mmHg (85-104); ABG TCO2 41 mEq/L (20-26)
[2020-03-14] MEDS ORDERED: Haloperidol Lactate 5 MG/ML VIAL IM ONE (23:13)
[2020-03-14] MEDS ORDERED: Furosemide 40 MG/4 ML VIAL ONE (23:29)
[2020-03-14] MEDS: Furosemide 40 MG in 0.9 % Sodium Chloride 50 ML IV STA (23:34)
[2020-03-14 23:43] LABS: Bilirubin,Urine Negative (Negative); Blood,Urine Negative (Negative); Clarity,Urine Clear (Clear); Color,Urine Yellow (Yellow); Glucose,Urine (UA) Normal (Normal); Ketones,Urine Negative (Negative); Leukocyte Esterase,Urine Negative (Negative); Mucus,Urine Few per lpf (None-Few); Nitrite,Urine Negative (Negative); Protein,Urine 200 mg/dL (Neg-Trace); RBC,Urine 0-3 per hpf (0-3); Specific Gravity,Urine 1.027 (1.010-1.025); Squamous Epithelial Cell,Urine Few per hpf (None-Few); Urobilinogen,Urine Normal (Normal); WBC,Urine 0-3 per hpf (0-3)
[2020-03-15] MEDS: Furosemide 40 MG in 0.9 % Sodium Chloride 50 ML IV STA (00:17)
[2020-03-15] MEDS ORDERED: Furosemide 40 MG/4 ML VIAL IVP ONE (00:19)
[2020-03-15] MEDS: Ipratropium/Albuterol Neb 3 ML IH SCH ×4 (03:56→21:53)
[2020-03-15] MEDS ORDERED: Ziprasidone 10 MG in Water for inj. (sterile) 0.5 ML IM ONE (04:45)
[2020-03-15] MEDS ORDERED: *HR* Metoprolol 5 MG/5 ML VIAL IVP ONE (06:07)
[2020-03-15 07:16] LABS: Basophils % 0.1 %; Eosinophils % 0.1 %; Hematocrit 39.6 % (35.3-44.9); Hemoglobin 12.2 g/dL (11.5-15.4); Immature Granulocytes % 0.7 % (0-4); Lymphocytes % 8.6 %; Mean Corpuscular HGB Conc 30.8 g/dL (31.6-35.5); Mean Corpuscular Hemoglobin 28.4 pg (28.0-33.3); Mean Corpuscular Volume 92.3 fL (83.0-100.0); Mean Platelet Volume 10.2 fL (9.4-12.4); Monocytes % 8.7 %; Neutrophils # 18.7 K/mcL (1.6-8.9); Platelet Count 264 K/mcL (140-400); Red Blood Count 4.29 M/mcL (3.82-4.97); Red Cell Distribution Width 16.4 % (11.5-14.5); Segmented Neutrophils % 81.8 %
[2020-03-15 07:18] LABS: White Blood Count 22.9 K/mcL (4.3-11.1)
[2020-03-15 08:06] LABS: BUN/Creatinine Ratio 57 (6-26); Blood Urea Nitrogen 30 mg/dL (8-23); Calcium 9.4 mg/dL (8.6-10.3); Carbon Dioxide 36 mEq/L (23-29); Chloride 92 mEq/L (98-107); Glucose 243 mg/dL (70-105); Magnesium 1.4 mg/dL (1.6-2.6); Osmolality,Calculated 296 (280-300); Potassium 3.5 mEq/L (3.5-5.1); Sodium 136 mEq/L (136-145); Troponin I 0.06 ng/mL (< 0.04); eGFR For African Americans > 60 (> 60); eGFR For Non-African Americans > 60 (> 60)
[2020-03-15] MEDS ORDERED: DilTIAZem CD (24hr) 180 MG CAP.ER.24H PO SCH (09:00)
[2020-03-15] MEDS: Furosemide 40 MG TABLET PO SCH (09:33)
[2020-03-15] MEDS: Cholecalciferol (D-3) 1,000 UNIT (25MCG) TABLET PO SCH (09:40)
[2020-03-15] MEDS: Aspirin Enteric Coated 81 MG Tablet PO SCH (09:40)
[2020-03-15] MEDS: Spironolactone 25 MG TABLET PO SCH (09:40)
[2020-03-15] MEDS: PARoxetine 20 MG TABLET PO SCH (09:41)
[2020-03-15] MEDS: Isosorbide MONOnitrate (24 HR) 30 MG TAB.ER.24H PO SCH (09:41)
[2020-03-15] MEDS: Multivit/Ca/Min/Fe/FA 1 TAB TABLET PO SCH (09:41)
[2020-03-15] MEDS: lisinopriL 5 MG TABLET PO SCH (09:41)
[2020-03-15] MEDS: DilTIAZem CD (24hr) 180 MG CAP.ER.24H PO SCH (09:41)
[2020-03-15] MEDS: Apixaban 5 MG TABLET PO SCH ×2 (09:41→20:41)
[2020-03-15] MEDS: CarBAMazepine 100 MG TABLET PO SCH ×2 (09:41→20:40)
[2020-03-15] MEDS: Insulin LISPRO 300 UNITS/3 ML VIAL SQ SCH ×7 (09:42→21:01)
[2020-03-15] MEDS: Nystatin POWDER 30 GM BOTTLE TP SCH ×2 (10:01→20:42)
[2020-03-15] MEDS: Furosemide 40 MG/4 ML VIAL IVP SCH ×2 (10:24→16:56)
[2020-03-15] MEDS: Budesonide/Formoterol 160/4.5 1 PUFF INH IH SCH ×2 (10:52→21:53)
[2020-03-15] MEDS ORDERED: Haloperidol Lactate 5 MG/ML VIAL IM ONE ×2 (13:56→18:27)
[2020-03-15 15:08] LABS: Albumin 3.1 g/dL (3.5-5.7); Bilirubin,Direct 0.1 mg/dL (0.0-0.2); Bilirubin,Indirect 0.4 mg/dL (0.0-1.0); Bilirubin,Total 0.5 mg/dL (0.3-1.0); Globulin 3.1 g/dL (2.4-3.5); Thyroid Stimulating Hormone 0.687 mcIU/mL (0.340-5.600); Total Protein 6.2 g/dL (6.4-8.9); Troponin I 0.06 ng/mL (< 0.04)
[2020-03-15 16:39] LABS: INR 1.4; Prothrombin Time 15.6 Seconds (9.4-12.1)
[2020-03-15 17:36] LABS: Adenovirus Not Detected (Not Detect); Bordetella Pertussis Not Detected (Not Detect); Chlamydophila pneumoniae Not Detected (Not Detect); Coronavirus 229E Not Detected (Not Detect); Coronavirus HKU1 Not Detected (Not Detect); Coronavirus NL63 Not Detected (Not Detect); Coronavirus OC43 Not Detected (Not Detect); Human Metapneumovirus Not Detected (Not Detect); Human Rhinovirus/Enterovirus Not Detected (Not Detect); Influenza A Subtype 2009 H1 Not Detected (Not Detect); Influenza B Not Detected (Not Detect); Mycoplasma pneumoniae Not Detected (Not Detect); Parainfluenza Virus 1 Not Detected (Not Detect); Parainfluenza Virus 2 Not Detected (Not Detect); Parainfluenza Virus 3 Not Detected (Not Detect); Parainfluenza Virus 4 Not Detected (Not Detect); Respiratory Syncytial Virus Not Detected (Not Detect); SARS-CoV-2 Not Detected (Not Detect)
[2020-03-15] MEDS ORDERED: Isovue-370 500 ML BOTTLE IVP ONE (18:25)
[2020-03-15 19:45] LABS: ABG Base Excess 13 mEq/L (-2 to 3); ABG HCO3 37 mEq/L (21-27); ABG Oxygen Saturation 92 % (95-98); ABG PCO2 44 mmHg (35-45); ABG PH 7.53 pH Units (7.32-7.45); ABG PO2 58 mmHg (85-104); ABG TCO2 39 mEq/L (20-26)
[2020-03-15] MEDS: Insulin DETEMIR 100 UNIT/ML X5UNITS SQ SCH (20:41)
[2020-03-15] MEDS: Piperacillin/Tazobactam 3.375 GM in 0.9 % Sodium Chloride Mini Bag 100 ML IVPB SCH (20:42)
[2020-03-15] MEDS: Acetaminophen 325 MG TABLET PO PRN (21:05)
[2020-03-15] MEDS: Nicotine 14 MG PATCH.TD24 TD SCH (23:52)
[2020-03-15] MEDS: MethylPREDNISolone 40 MG/ML VIAL IVP SCH (23:52)
[2020-03-16 00:59] LABS: Basophils % 0.1 %; Hematocrit 37.4 % (35.3-44.9); Hemoglobin 11.8 g/dL (11.5-15.4); Immature Granulocytes % 0.4 % (0-4); Lymphocytes # 1.9 K/mcL (0.6-4.6); Lymphocytes % 9.3 %; Mean Corpuscular HGB Conc 31.6 g/dL (31.6-35.5); Mean Corpuscular Hemoglobin 28.8 pg (28.0-33.3); Mean Corpuscular Volume 91.2 fL (83.0-100.0); Mean Platelet Volume 9.8 fL (9.4-12.4); Monocytes # 1.5 K/mcL (0.0-1.3); Monocytes % 7.2 %; Neutrophils # 17.3 K/mcL (1.6-8.9); Platelet Count 234 K/mcL (140-400); Red Cell Distribution Width 16.2 % (11.5-14.5); White Blood Count 20.9 K/mcL (4.3-11.1)
[2020-03-16 01:16] LABS: BUN/Creatinine Ratio 41 (6-26); Blood Urea Nitrogen 29 mg/dL (8-23); Calcium 8.8 mg/dL (8.6-10.3); Carbon Dioxide 36 mEq/L (23-29); Chloride 89 mEq/L (98-107); Glucose 166 mg/dL (70-105); Osmolality,Calculated 284 (280-300); Phosphorous 4.3 mg/dL (2.7-4.5); Potassium 3.7 mEq/L (3.5-5.1); Sodium 132 mEq/L (136-145); eGFR For African Americans > 60 (> 60); eGFR For Non-African Americans > 60 (> 60)
[2020-03-16] MEDS: Ipratropium/Albuterol Neb 3 ML IH SCH ×4 (04:30→21:42)
[2020-03-16] MEDS: Piperacillin/Tazobactam 3.375 GM in 0.9 % Sodium Chloride Mini Bag 100 ML IVPB SCH (04:53)
[2020-03-16] MEDS: ALPRAZolam 1 MG TABLET PO PRN (04:53)
[2020-03-16] MEDS: Furosemide 40 MG/4 ML VIAL IVP SCH ×2 (08:00→17:05)
[2020-03-16] MEDS: MethylPREDNISolone 40 MG/ML VIAL IVP SCH ×2 (08:01→17:04)
[2020-03-16] MEDS: Insulin LISPRO 300 UNITS/3 ML VIAL SQ SCH ×7 (08:12→20:22)
[2020-03-16] MEDS: lisinopriL 5 MG TABLET PO SCH (09:30)
[2020-03-16] MEDS: Cholecalciferol (D-3) 1,000 UNIT (25MCG) TABLET PO SCH (09:30)
[2020-03-16] MEDS: Aspirin Enteric Coated 81 MG Tablet PO SCH (09:31)
[2020-03-16] MEDS: Multivit/Ca/Min/Fe/FA 1 TAB TABLET PO SCH (09:31)
[2020-03-16] MEDS: CarBAMazepine 100 MG TABLET PO SCH ×2 (09:33→20:18)
[2020-03-16] MEDS: PARoxetine 20 MG TABLET PO SCH (09:33)
[2020-03-16] MEDS: DilTIAZem CD (24hr) 180 MG CAP.ER.24H PO SCH (09:33)
[2020-03-16] MEDS: Isosorbide MONOnitrate (24 HR) 30 MG TAB.ER.24H PO SCH (09:33)
[2020-03-16] MEDS: Apixaban 5 MG TABLET PO SCH ×2 (09:34→20:17)
[2020-03-16] MEDS: Nystatin POWDER 30 GM BOTTLE TP SCH ×2 (10:14→20:10)
[2020-03-16] MEDS: Budesonide/Formoterol 160/4.5 1 PUFF INH IH SCH ×2 (10:26→21:42)
[2020-03-16] MEDS: levoFLOXacin 750 MG/150 ML 750 MG/150 ML BAG IVPB SCH (13:06)
[2020-03-16] MEDS: Vancomycin 1,750 MG/517.5 ML IV.SOLN IVPB SCH (18:23)
[2020-03-16] MEDS ORDERED: Insulin DETEMIR 100 UNIT/ML X5UNITS SQ ONE (19:36)
[2020-03-16] MEDS: Insulin DETEMIR 100 UNIT/ML X5UNITS SQ SCH (20:16)
[2020-03-17] MEDS: MethylPREDNISolone 40 MG/ML VIAL IVP SCH (01:16)
[2020-03-17 02:43] LABS: Basophils % 0.1 %; Hematocrit 38.2 % (35.3-44.9); Immature Granulocytes % 0.6 % (0-4); Lymphocytes # 0.6 K/mcL (0.6-4.6); Lymphocytes % 3.4 %; Mean Corpuscular HGB Conc 31.4 g/dL (31.6-35.5); Mean Corpuscular Volume 92.3 fL (83.0-100.0); Monocytes # 0.7 K/mcL (0.0-1.3); Monocytes % 3.8 %; Platelet Count 251 K/mcL (140-400); Red Blood Count 4.14 M/mcL (3.82-4.97); Red Cell Distribution Width 15.8 % (11.5-14.5); Segmented Neutrophils % 92.1 %; White Blood Count 17.3 K/mcL (4.3-11.1)
[2020-03-17 03:05] LABS: BUN/Creatinine Ratio 64 (6-26); Blood Urea Nitrogen 51 mg/dL (8-23); Calcium 8.9 mg/dL (8.6-10.3); Carbon Dioxide 33 mEq/L (23-29); Chloride 91 mEq/L (98-107); Glucose 455 mg/dL (70-105); Osmolality,Calculated 303 (280-300); Potassium 4.5 mEq/L (3.5-5.1); Sodium 130 mEq/L (136-145); eGFR For African Americans > 60 (> 60); eGFR For Non-African Americans > 60 (> 60)
[2020-03-17] MEDS: Ipratropium/Albuterol Neb 3 ML IH SCH ×4 (03:55→21:15)
[2020-03-17] MEDS: Vancomycin 1,750 MG/517.5 ML IV.SOLN IVPB SCH ×2 (05:38→17:38)
[2020-03-17] MEDS: Insulin LISPRO 300 UNITS/3 ML VIAL SQ SCH ×7 (07:35→22:12)
[2020-03-17] MEDS: Aspirin Enteric Coated 81 MG Tablet PO SCH (07:37)
[2020-03-17] MEDS: CarBAMazepine 100 MG TABLET PO SCH ×2 (07:37→22:10)
[2020-03-17] MEDS: Cholecalciferol (D-3) 1,000 UNIT (25MCG) TABLET PO SCH (07:37)
[2020-03-17] MEDS: Multivit/Ca/Min/Fe/FA 1 TAB TABLET PO SCH (07:38)
[2020-03-17] MEDS: DilTIAZem CD (24hr) 180 MG CAP.ER.24H PO SCH (07:38)
[2020-03-17] MEDS: Apixaban 5 MG TABLET PO SCH ×2 (07:38→22:10)
[2020-03-17] MEDS: predniSONE 20 MG TABLET PO SCH (07:38)
[2020-03-17] MEDS: PARoxetine 20 MG TABLET PO SCH (07:39)
[2020-03-17] MEDS: Isosorbide MONOnitrate (24 HR) 30 MG TAB.ER.24H PO SCH (07:39)
[2020-03-17] MEDS: lisinopriL 5 MG TABLET PO SCH (07:39)
[2020-03-17] MEDS: levoFLOXacin 750 MG/150 ML 750 MG/150 ML BAG IVPB SCH (07:59)
[2020-03-17] MEDS: Furosemide 40 MG/4 ML VIAL IVP SCH (08:01)
[2020-03-17] MEDS: Insulin DETEMIR 100 UNIT/ML X5UNITS SQ SCH ×2 (09:54→22:09)
[2020-03-17] MEDS: Nystatin POWDER 30 GM BOTTLE TP SCH ×2 (10:00→22:10)
[2020-03-17] MEDS: Nicotine 14 MG PATCH.TD24 TD SCH (10:00)
[2020-03-17] MEDS: Budesonide/Formoterol 160/4.5 1 PUFF INH IH SCH ×2 (10:29→21:16)
[2020-03-17] MEDS ORDERED: Insulin LISPRO 300 UNITS/3 ML VIAL SQ ONE (14:00)
[2020-03-17] MEDS ORDERED: Insulin Regular, Human 100 UNIT/ML IV ONE (18:40)
[2020-03-17] MEDS ORDERED: Insulin Human Regular 5 UNIT in 0.9 % Sodium Chloride 10 ML IV ONE (18:44)
[2020-03-18] MEDS: ALPRAZolam 1 MG TABLET PO PRN (01:16)
[2020-03-18] MEDS ORDERED: Insulin Regular, Human 100 UNIT/ML IV ONE (02:02)
[2020-03-18] MEDS ORDERED: Insulin Human Regular 5 UNIT in 0.9 % Sodium Chloride 10 ML IV ONE (02:15)
[2020-03-18 03:59] LABS: Basophils % 0.1 %; Eosinophils % 0.3 %; Hematocrit 39.8 % (35.3-44.9); Hemoglobin 11.9 g/dL (11.5-15.4); Immature Granulocytes % 0.3 % (0-4); Lymphocytes # 1.3 K/mcL (0.6-4.6); Lymphocytes % 10.5 %; Mean Corpuscular HGB Conc 29.9 g/dL (31.6-35.5); Mean Corpuscular Hemoglobin 28.4 pg (28.0-33.3); Mean Platelet Volume 9.8 fL (9.4-12.4); Monocytes # 1.2 K/mcL (0.0-1.3); Monocytes % 9.6 %; Neutrophils # 9.9 K/mcL (1.6-8.9); Platelet Count 290 K/mcL (140-400); Red Blood Count 4.19 M/mcL (3.82-4.97); Red Cell Distribution Width 15.9 % (11.5-14.5); Segmented Neutrophils % 79.2 %; White Blood Count 12.5 K/mcL (4.3-11.1)
[2020-03-18 04:12] LABS: BUN/Creatinine Ratio 68 (6-26); Blood Urea Nitrogen 58 mg/dL (8-23); Calcium 9.4 mg/dL (8.6-10.3); Carbon Dioxide 36 mEq/L (23-29); Chloride 95 mEq/L (98-107); Glucose 324 mg/dL (70-105); Magnesium 2.2 mg/dL (1.6-2.6); Osmolality,Calculated 311 (280-300); Phosphorous 2.8 mg/dL (2.7-4.5); Potassium 4.7 mEq/L (3.5-5.1); Sodium 136 mEq/L (136-145); eGFR For African Americans > 60 (> 60); eGFR For Non-African Americans > 60 (> 60)
[2020-03-18] MEDS: Ipratropium/Albuterol Neb 3 ML IH SCH ×2 (04:29→08:57)
[2020-03-18] MEDS: Vancomycin 1,750 MG/517.5 ML IV.SOLN IVPB SCH ×2 (05:58→17:12)
[2020-03-18] MEDS: Insulin LISPRO 300 UNITS/3 ML VIAL SQ SCH ×7 (08:03→21:00)
[2020-03-18] MEDS: DilTIAZem CD (24hr) 180 MG CAP.ER.24H PO SCH (08:05)
[2020-03-18] MEDS: Apixaban 5 MG TABLET PO SCH ×2 (08:05→20:58)
[2020-03-18] MEDS: predniSONE 20 MG TABLET PO SCH (08:06)
[2020-03-18] MEDS: CarBAMazepine 100 MG TABLET PO SCH ×2 (08:06→20:58)
[2020-03-18] MEDS: PARoxetine 20 MG TABLET PO SCH (08:07)
[2020-03-18] MEDS: Isosorbide MONOnitrate (24 HR) 30 MG TAB.ER.24H PO SCH (08:07)
[2020-03-18] MEDS: Cholecalciferol (D-3) 1,000 UNIT (25MCG) TABLET PO SCH (08:07)
[2020-03-18] MEDS: Aspirin Enteric Coated 81 MG Tablet PO SCH (08:07)
[2020-03-18] MEDS: Multivit/Ca/Min/Fe/FA 1 TAB TABLET PO SCH (08:07)
[2020-03-18] MEDS: lisinopriL 5 MG TABLET PO SCH (08:08)
[2020-03-18] MEDS: Furosemide 40 MG/4 ML VIAL IVP SCH (08:08)
[2020-03-18] MEDS: Insulin DETEMIR 100 UNIT/ML X5UNITS SQ SCH ×2 (08:09→20:58)
[2020-03-18] MEDS: Nicotine 14 MG PATCH.TD24 TD SCH (08:10)
[2020-03-18] MEDS: Nystatin POWDER 30 GM BOTTLE TP SCH ×2 (08:10→20:59)
[2020-03-18] MEDS: levoFLOXacin 750 MG/150 ML 750 MG/150 ML BAG IVPB SCH (08:13)
[2020-03-18] MEDS: Budesonide/Formoterol 160/4.5 1 PUFF INH IH SCH ×2 (08:57→21:25)
[2020-03-18] MEDS ORDERED: methylPREDNISolone 125 MG/2 ML VIAL IVP ONE (09:03)
[2020-03-18 09:18] LABS: ABG Base Excess 4 mEq/L (-2 to 3); ABG HCO3 33 mEq/L (21-27); ABG Oxygen Saturation 97 % (95-98); ABG PCO2 68 mmHg (35-45); ABG PO2 105 mmHg (85-104); ABG TCO2 35 mEq/L (20-26)
[2020-03-18] MEDS: DilTIAZem 50 MG/50 ML IV.SOLN IVC SCH ×2 (09:45→17:24)
[2020-03-18] MEDS: Levalbuterol Neb 1.25 MG/3 ML IH SCH ×3 (09:51→21:25)
[2020-03-18] MEDS ORDERED: Vancomycin 1,750 MG in 0.9 % Sodium Chloride 250 ML IVPB SCH (10:00)
[2020-03-19] MEDS: Levalbuterol Neb 1.25 MG/3 ML IH SCH ×4 (03:22→22:02)
[2020-03-19] MEDS: Vancomycin 1,750 MG/517.5 ML IV.SOLN IVPB SCH (06:10)
[2020-03-19 06:56] LABS: Basophils % 0.2 %; Eosinophils % 0.1 %; Hematocrit 37.6 % (35.3-44.9); Hemoglobin 11.2 g/dL (11.5-15.4); Immature Granulocytes % 0.5 % (0-4); Lymphocytes # 1.7 K/mcL (0.6-4.6); Lymphocytes % 16.5 %; Mean Corpuscular HGB Conc 29.8 g/dL (31.6-35.5); Mean Corpuscular Hemoglobin 28.1 pg (28.0-33.3); Mean Corpuscular Volume 94.2 fL (83.0-100.0); Monocytes % 10.3 %; Neutrophils # 7.3 K/mcL (1.6-8.9); Platelet Count 253 K/mcL (140-400); Red Blood Count 3.99 M/mcL (3.82-4.97); Red Cell Distribution Width 15.9 % (11.5-14.5); Segmented Neutrophils % 72.4 %; White Blood Count 10.1 K/mcL (4.3-11.1)
[2020-03-19 07:14] LABS: BUN/Creatinine Ratio 58 (6-26); Blood Urea Nitrogen 31 mg/dL (8-23); Calcium 9.3 mg/dL (8.6-10.3); Carbon Dioxide 37 mEq/L (23-29); Chloride 100 mEq/L (98-107); Glucose 153 mg/dL (70-105); Osmolality,Calculated 298 (280-300); Phosphorous 2.7 mg/dL (2.7-4.5); Potassium 4.8 mEq/L (3.5-5.1); Sodium 139 mEq/L (136-145); eGFR For African Americans > 60 (> 60); eGFR For Non-African Americans > 60 (> 60)
[2020-03-19] MEDS: lisinopriL 5 MG TABLET PO SCH (07:47)
[2020-03-19] MEDS: Cholecalciferol (D-3) 1,000 UNIT (25MCG) TABLET PO SCH (07:47)
[2020-03-19] MEDS: predniSONE 20 MG TABLET PO SCH (07:48)
[2020-03-19] MEDS: Nicotine 14 MG PATCH.TD24 TD SCH (07:48)
[2020-03-19] MEDS: Aspirin Enteric Coated 81 MG Tablet PO SCH (07:48)
[2020-03-19] MEDS: PARoxetine 20 MG TABLET PO SCH (07:48)
[2020-03-19] MEDS: Apixaban 5 MG TABLET PO SCH ×2 (07:48→20:38)
[2020-03-19] MEDS: Isosorbide MONOnitrate (24 HR) 30 MG TAB.ER.24H PO SCH (07:48)
[2020-03-19] MEDS: DilTIAZem CD (24hr) 240 MG CAP.ER.24H PO SCH (07:48)
[2020-03-19] MEDS: Multivit/Ca/Min/Fe/FA 1 TAB TABLET PO SCH (07:48)
[2020-03-19] MEDS: Furosemide 40 MG/4 ML VIAL IVP SCH (07:49)
[2020-03-19] MEDS: levoFLOXacin 750 MG/150 ML 750 MG/150 ML BAG IVPB SCH (07:49)
[2020-03-19] MEDS: Insulin LISPRO 300 UNITS/3 ML VIAL SQ SCH ×7 (07:59→20:39)
[2020-03-19] MEDS: CarBAMazepine 100 MG TABLET PO SCH ×2 (08:00→20:38)
[2020-03-19] MEDS: Nystatin POWDER 30 GM BOTTLE TP SCH ×2 (08:00→20:41)
[2020-03-19] MEDS: Insulin DETEMIR 100 UNIT/ML X5UNITS SQ SCH ×2 (08:12→20:39)
[2020-03-19] MEDS ORDERED: DilTIAZem CD (24hr) 180 MG CAP.ER.24H PO SCH (09:00)
[2020-03-19] MEDS: Sulfamethoxazole/Trimeth DS 1 EACH TABLET PO SCH ×2 (10:24→20:38)
[2020-03-19] MEDS: Budesonide/Formoterol 160/4.5 1 PUFF INH IH SCH ×2 (11:28→22:02)
[2020-03-19] MEDS: ALPRAZolam 1 MG TABLET PO PRN (22:50)
[2020-03-20] MEDS: Levalbuterol Neb 1.25 MG/3 ML IH SCH ×2 (04:28→09:45)
[2020-03-20 07:41] VITALS: BP 119/74
[2020-03-20] MEDS: Furosemide 40 MG/4 ML VIAL IVP SCH (08:15)
[2020-03-20] MEDS: Insulin LISPRO 300 UNITS/3 ML VIAL SQ SCH ×2 (08:15)
[2020-03-20] MEDS: predniSONE 20 MG TABLET PO SCH (08:16)
[2020-03-20] MEDS: Multivit/Ca/Min/Fe/FA 1 TAB TABLET PO SCH (08:16)
[2020-03-20] MEDS: Sulfamethoxazole/Trimeth DS 1 EACH TABLET PO SCH (08:16)
[2020-03-20] MEDS: Cholecalciferol (D-3) 1,000 UNIT (25MCG) TABLET PO SCH (08:16)
[2020-03-20] MEDS: DilTIAZem CD (24hr) 240 MG CAP.ER.24H PO SCH (08:16)
[2020-03-20] MEDS: PARoxetine 20 MG TABLET PO SCH (08:16)
[2020-03-20] MEDS: CarBAMazepine 100 MG TABLET PO SCH (08:16)
[2020-03-20] MEDS: Apixaban 5 MG TABLET PO SCH (08:16)
[2020-03-20] MEDS: Aspirin Enteric Coated 81 MG Tablet PO SCH (08:16)
[2020-03-20] MEDS: lisinopriL 5 MG TABLET PO SCH (08:17)
[2020-03-20] MEDS: Nicotine 14 MG PATCH.TD24 TD SCH (08:17)
[2020-03-20] MEDS: Isosorbide MONOnitrate (24 HR) 30 MG TAB.ER.24H PO SCH (08:17)
[2020-03-20] MEDS: Budesonide/Formoterol 160/4.5 1 PUFF INH IH SCH (09:47)
[2020-03-20] MEDS: Insulin DETEMIR 100 UNIT/ML X5UNITS SQ SCH (10:55)
[2020-03-20] MEDS: Nystatin POWDER 30 GM BOTTLE TP SCH (10:55)
[2020-03-20] MEDS ORDERED: FLU Vac QV 20-21 (6Month+)/PF 0.5 ML SYRINGE IM ONE (11:29)
[2020-03-20 12:49] LABS: Adenovirus Not Detected (Not Detect); Bordetella Pertussis Not Detected (Not Detect); Chlamydophila pneumoniae Not Detected (Not Detect); Coronavirus 229E Not Detected (Not Detect); Coronavirus HKU1 Not Detected (Not Detect); Coronavirus NL63 Not Detected (Not Detect); Coronavirus OC43 Not Detected (Not Detect); Human Metapneumovirus Not Detected (Not Detect); Human Rhinovirus/Enterovirus Not Detected (Not Detect); Influenza A Subtype 2009 H1 Not Detected (Not Detect); Influenza B Not Detected (Not Detect); Mycoplasma pneumoniae Not Detected (Not Detect); Parainfluenza Virus 1 Not Detected (Not Detect); Parainfluenza Virus 2 Not Detected (Not Detect); Parainfluenza Virus 3 Not Detected (Not Detect); Parainfluenza Virus 4 Not Detected (Not Detect); Respiratory Syncytial Virus Not Detected (Not Detect); SARS-CoV-2 Not Detected (Not Detect)
== END 2020-03-20 15:09 | DRG 291 ==
LOC: EMEROOARM 03:59 → 3BNU 03:59 → SUATTDRO 03-10 11:44 → 2ANU 03-10 19:03 → 2NNU 03-15 01:51 → 2ANU 03-19 11:02
PROVIDERS: ADMIT Internal Medicine; ATTEND Internal Medicine

== ENCOUNTER 2020-06-01 20:33 | Inpatient (IN) ==
[2020-06-01] MEDS ORDERED: Furosemide 40 MG/4 ML VIAL IVP ONE (20:52)
[2020-06-01] MEDS ORDERED: Ipratropium/Albuterol Neb 3 ML IH ONE (20:52)
[2020-06-01] MEDS ORDERED: methylPREDNISolone 125 MG/2 ML VIAL IVP ONE (20:52)
[2020-06-01 21:25] LABS: Basophils % 0.2 %; Eosinophils # 0.1 K/mcL (0.0-0.6); Eosinophils % 1.2 %; Hematocrit 37.3 % (35.3-44.9); Hemoglobin 10.8 g/dL (11.5-15.4); Immature Granulocytes % 0.2 % (0-4); Lymphocytes # 1.9 K/mcL (0.6-4.6); Lymphocytes % 23.3 %; Mean Corpuscular Volume 93.3 fL (83.0-100.0); Mean Platelet Volume 9.5 fL (9.4-12.4); Monocytes # 0.9 K/mcL (0.0-1.3); Monocytes % 10.6 %; Neutrophils # 5.2 K/mcL (1.6-8.9); Platelet Count 287 K/mcL (140-400); Red Cell Distribution Width 15.3 % (11.5-14.5); Segmented Neutrophils % 64.5 %
[2020-06-01 21:32] LABS: INR 1.1; Prothrombin Time 12.6 Seconds (9.4-12.1)
[2020-06-01 21:43] LABS: BUN/Creatinine Ratio 35 (6-26); Blood Urea Nitrogen 18 mg/dL (8-23); Calcium 9.7 mg/dL (8.6-10.3); Carbon Dioxide 38 mEq/L (23-29); Chloride 95 mEq/L (98-107); Glucose 205 mg/dL (70-105); Osmolality,Calculated 288 (280-300); Potassium 4.3 mEq/L (3.5-5.1); Sodium 135 mEq/L (136-145); Troponin I 0.04 ng/mL (< 0.04); eGFR For African Americans > 60 (> 60); eGFR For Non-African Americans > 60 (> 60)
[2020-06-01] MEDS ORDERED: Aspirin 325 MG TABLET PO ONE (21:44)
[2020-06-01 22:37] LABS: Bilirubin,Urine Negative (Negative); Blood,Urine Negative (Negative); Clarity,Urine Clear (Clear); Color,Urine Light-Yellow (Yellow); Glucose,Urine (UA) Normal (Normal); Hyaline Casts,Urine Few per lpf (None Seen); Ketones,Urine Negative (Negative); Leukocyte Esterase,Urine Negative (Negative); Mucus,Urine Few per lpf (None-Few); Nitrite,Urine Negative (Negative); Protein,Urine 70 mg/dL (Neg-Trace); RBC,Urine 0-3 per hpf (0-3); Specific Gravity,Urine 1.008 (1.010-1.025); Squamous Epithelial Cell,Urine Few per hpf (None-Few); Urobilinogen,Urine Normal (Normal); WBC,Urine 0-3 per hpf (0-3)
[2020-06-01] MEDS ORDERED: Azithromycin 500 MG in 0.9 % Sodium Chloride 250 ML IVPB ONE (23:08)
[2020-06-01 23:22] LABS: Adenovirus Not Detected (Not Detect); Bordetella Pertussis Not Detected (Not Detect); Chlamydophila pneumoniae Not Detected (Not Detect); Coronavirus 229E Not Detected (Not Detect); Coronavirus HKU1 Not Detected (Not Detect); Coronavirus NL63 Not Detected (Not Detect); Coronavirus OC43 Not Detected (Not Detect); Human Metapneumovirus Not Detected (Not Detect); Human Rhinovirus/Enterovirus Not Detected (Not Detect); Influenza A Subtype 2009 H1 Not Detected (Not Detect); Influenza B Not Detected (Not Detect); Mycoplasma pneumoniae Not Detected (Not Detect); Parainfluenza Virus 1 Not Detected (Not Detect); Parainfluenza Virus 2 Not Detected (Not Detect); Parainfluenza Virus 3 Not Detected (Not Detect); Parainfluenza Virus 4 Not Detected (Not Detect); Respiratory Syncytial Virus Not Detected (Not Detect); SARS-CoV-2 Not Detected (Not Detect)
[2020-06-01] MEDS ORDERED: Naloxone 0.4 MG/ML INJ IVP PRN (23:29)
[2020-06-01] MEDS ORDERED: Ondansetron 4 MG/2 ML VIAL IVP PRN (23:29)
[2020-06-02] MEDS: Ipratropium/Albuterol Neb 3 ML IH SCH ×7 (03:08→23:52)
[2020-06-02] MEDS: MethylPREDNISolone 40 MG/ML VIAL IVP SCH ×2 (04:28→07:53)
[2020-06-02 05:09] LABS: Alanine Aminotransferase 17 Units/L (7-52); Albumin 3.6 g/dL (3.5-5.7); Albumin/Globulin Ratio 0.9 (1.1-2.2); Alkaline Phosphatase 127 Units/L (34-104); Aspartate Amino Transferase 22 Units/L (13-39); BUN/Creatinine Ratio 35 (6-26); Bilirubin,Total 0.3 mg/dL (0.3-1.0); Blood Urea Nitrogen 22 mg/dL (8-23); Calcium 9.7 mg/dL (8.6-10.3); Carbon Dioxide 30 mEq/L (23-29); Chloride 94 mEq/L (98-107); Glucose 379 mg/dL (70-105); Osmolality,Calculated 293 (280-300); Potassium 5.1 mEq/L (3.5-5.1); Sodium 132 mEq/L (136-145); Total Protein 7.6 g/dL (6.4-8.9); eGFR For African Americans > 60 (> 60); eGFR For Non-African Americans > 60 (> 60)
[2020-06-02] MEDS ORDERED: *HR* Metoprolol 5 MG/5 ML VIAL IVP PRN (05:18)
[2020-06-02] MEDS ORDERED: Dextrose Gel 15 GM/37.5 ML TUBE PO PRN ×2 (05:59)
[2020-06-02] MEDS ORDERED: D5% in Water 1,000 ML IVC PRN (05:59)
[2020-06-02] MEDS ORDERED: *HR* Dextrose 50 % in Water (Vial) 50 ML VIAL IVP PRN (05:59)
[2020-06-02 06:42] LABS: Troponin I 0.03 ng/mL (< 0.04)
[2020-06-02] MEDS: DilTIAZem CD (24hr) 240 MG CAP.ER.24H PO SCH (07:50)
[2020-06-02] MEDS: Apixaban 5 MG TABLET PO SCH ×2 (07:52→21:40)
[2020-06-02] MEDS: lisinopriL 5 MG TABLET PO SCH (07:52)
[2020-06-02] MEDS: Spironolactone 25 MG TABLET PO SCH (07:53)
[2020-06-02] MEDS: Insulin LISPRO 300 UNITS/3 ML VIAL SUBQ SCH ×3 (07:56→12:57)
[2020-06-02] MEDS ORDERED: Furosemide 40 MG/4 ML VIAL IVP SCH (08:00)
[2020-06-02] MEDS: Lactobacillus 1 EACH CAP.SPRINK PO SCH ×2 (09:12→20:41)
[2020-06-02] MEDS: predniSONE 20 MG TABLET PO SCH (09:12)
[2020-06-02] MEDS: Insulin DETEMIR 100 UNIT/ML X5UNITS SUBQ SCH ×2 (12:51→20:41)
[2020-06-02] MEDS ORDERED: Insulin DETEMIR 100 UNIT/ML X5UNITS SUBQ SCH (21:00)
[2020-06-02] MEDS ORDERED: Insulin LISPRO 300 UNITS/3 ML VIAL SUBQ SCH (21:30)
[2020-06-02] MEDS: ALPRAZolam 1 MG TABLET PO PRN (21:40)
[2020-06-02] MEDS ORDERED: Azithromycin 500 MG in 0.9 % Sodium Chloride 250 ML IVPB SCH (23:00)
[2020-06-03] MEDS: Ipratropium/Albuterol Neb 3 ML IH SCH ×6 (04:33→23:30)
[2020-06-03 07:42] LABS: Eosinophils % 0.1 %; Red Cell Distribution Width 15.5 % (11.5-14.5)
[2020-06-03 07:43] LABS: Hematocrit 36.7 % (35.3-44.9); Hemoglobin 10.5 g/dL (11.5-15.4); Immature Granulocytes % 0.4 % (0-4); Lymphocytes # 1.9 K/mcL (0.6-4.6); Lymphocytes % 22.4 %; Mean Corpuscular HGB Conc 28.6 g/dL (31.6-35.5); Mean Corpuscular Volume 94.3 fL (83.0-100.0); Mean Platelet Volume 9.9 fL (9.4-12.4); Monocytes # 1.1 K/mcL (0.0-1.3); Monocytes % 12.6 %; Platelet Count 276 K/mcL (140-400); Red Blood Count 3.89 M/mcL (3.82-4.97); Segmented Neutrophils % 64.5 %; White Blood Count 8.4 K/mcL (4.3-11.1)
[2020-06-03 07:50] LABS: Neutrophils # 5.4 K/mcL (1.6-8.9)
[2020-06-03 07:59] LABS: % Iron Saturation 4 % (15-50); Alanine Aminotransferase 19 Units/L (7-52); Albumin 3.5 g/dL (3.5-5.7); Alkaline Phosphatase 108 Units/L (34-104); Aspartate Amino Transferase 15 Units/L (13-39); BUN/Creatinine Ratio 54 (6-26); Bilirubin,Direct 0.1 mg/dL (0.0-0.2); Bilirubin,Indirect 0.2 mg/dL (0.0-1.0); Bilirubin,Total 0.3 mg/dL (0.3-1.0); Blood Urea Nitrogen 45 mg/dL (8-23); Calcium 9.6 mg/dL (8.6-10.3); Carbon Dioxide 35 mEq/L (23-29); Chloride 93 mEq/L (98-107); Globulin 3.4 g/dL (2.4-3.5); Glucose 327 mg/dL (70-105); Iron 21 mcg/dL (50-170); Osmolality,Calculated 298 (280-300); Potassium 4.7 mEq/L (3.5-5.1); Sodium 132 mEq/L (136-145); Total Protein 6.9 g/dL (6.4-8.9); Transferrin 375 mg/dL (203-362); eGFR For African Americans > 60 (> 60); eGFR For Non-African Americans > 60 (> 60)
[2020-06-03 08:06] LABS: Platelet Estimate Normal (Normal)
[2020-06-03 08:08] LABS: Hypochromasia Present (Not Present)
[2020-06-03 08:13] LABS: Ferritin 41 ng/mL (10-120)
[2020-06-03 08:14] LABS: Hepatitis B Surface Antigen Nonreactive (Nonreactive)
[2020-06-03 08:18] LABS: Folate 18.7 ng/mL (3.0-16.0)
[2020-06-03 08:42] LABS: Hepatitis C Virus Antibody Nonreactive (Nonreactive)
[2020-06-03] MEDS: Lactobacillus 1 EACH CAP.SPRINK PO SCH ×2 (08:44→20:26)
[2020-06-03] MEDS: predniSONE 20 MG TABLET PO SCH (08:44)
[2020-06-03] MEDS: PARoxetine 20 MG TABLET PO SCH (08:44)
[2020-06-03] MEDS: Apixaban 5 MG TABLET PO SCH ×2 (08:45→20:26)
[2020-06-03] MEDS: DilTIAZem CD (24hr) 240 MG CAP.ER.24H PO SCH (08:45)
[2020-06-03] MEDS: Isosorbide MONOnitrate (24 HR) 30 MG TAB.ER.24H PO SCH (08:45)
[2020-06-03] MEDS: Multivit/Ca/Min/Fe/FA 1 TAB TABLET PO SCH (08:46)
[2020-06-03] MEDS: Insulin DETEMIR 100 UNIT/ML X5UNITS SUBQ SCH ×2 (08:46→20:26)
[2020-06-03] MEDS: Cholecalciferol (D-3) 1,000 UNIT (25MCG) TABLET PO SCH (08:46)
[2020-06-03] MEDS: Aspirin Enteric Coated 81 MG Tablet PO SCH (08:46)
[2020-06-03] MEDS: Insulin LISPRO 300 UNITS/3 ML VIAL SUBQ SCH ×4 (08:47→17:00)
[2020-06-03] MEDS: Acetaminophen 325 MG TABLET PO PRN (08:56)
[2020-06-03] MEDS ORDERED: Furosemide 40 MG/4 ML VIAL IVP SCH (09:00)
[2020-06-03 09:31] LABS: Estimated Average Glucose 186 mg/dl; Hemoglobin A1C 8.1 %
[2020-06-04 03:29] LABS: Basophils % 0.1 %; Red Cell Distribution Width 15.5 % (11.5-14.5)
[2020-06-04 03:30] LABS: Eosinophils % 0.1 %; Hematocrit 36.4 % (35.3-44.9); Hemoglobin 10.5 g/dL (11.5-15.4); Immature Granulocytes % 0.3 % (0-4); Lymphocytes # 1.6 K/mcL (0.6-4.6); Lymphocytes % 19.9 %; Mean Corpuscular HGB Conc 28.8 g/dL (31.6-35.5); Mean Corpuscular Hemoglobin 27.7 pg (28.0-33.3); Mean Platelet Volume 9.9 fL (9.4-12.4); Monocytes # 0.9 K/mcL (0.0-1.3); Neutrophils # 5.5 K/mcL (1.6-8.9); Nucleated Red Blood Cells 0.3 /100 WBC (0); Platelet Count 313 K/mcL (140-400); Red Blood Count 3.79 M/mcL (3.82-4.97); Segmented Neutrophils % 68.6 %
[2020-06-04 03:46] LABS: Calcium 9.5 mg/dL (8.6-10.3); Magnesium 2.1 mg/dL (1.6-2.6); Potassium 5.8 mEq/L (3.5-5.1)
[2020-06-04 03:52] LABS: Hypochromasia Present (Not Present); Platelet Estimate Normal (Normal)
[2020-06-04] MEDS: Ipratropium/Albuterol Neb 3 ML IH SCH ×6 (03:55→23:49)
[2020-06-04] MEDS: Acetylcysteine 10% 2 ML INHSOL IH SCH ×5 (08:00→23:50)
[2020-06-04] MEDS: Insulin DETEMIR 100 UNIT/ML X5UNITS SUBQ SCH ×2 (08:03→21:20)
[2020-06-04] MEDS: Insulin LISPRO 300 UNITS/3 ML VIAL SUBQ SCH ×6 (08:03→17:24)
[2020-06-04] MEDS: Cholecalciferol (D-3) 1,000 UNIT (25MCG) TABLET PO SCH (08:09)
[2020-06-04] MEDS: predniSONE 20 MG TABLET PO SCH (08:10)
[2020-06-04] MEDS: Apixaban 5 MG TABLET PO SCH ×2 (08:10→21:16)
[2020-06-04] MEDS: Aspirin Enteric Coated 81 MG Tablet PO SCH (08:10)
[2020-06-04] MEDS: Multivit/Ca/Min/Fe/FA 1 TAB TABLET PO SCH (08:10)
[2020-06-04] MEDS: PARoxetine 20 MG TABLET PO SCH (08:10)
[2020-06-04] MEDS: DilTIAZem CD (24hr) 240 MG CAP.ER.24H PO SCH (08:11)
[2020-06-04] MEDS: Lactobacillus 1 EACH CAP.SPRINK PO SCH ×2 (08:11→21:16)
[2020-06-04] MEDS: Isosorbide MONOnitrate (24 HR) 30 MG TAB.ER.24H PO SCH (08:11)
[2020-06-04] MEDS: Spironolactone 25 MG TABLET PO SCH (08:11)
[2020-06-04] MEDS: Acetaminophen 325 MG TABLET PO PRN (12:07)
[2020-06-04 14:20] LABS: BUN/Creatinine Ratio 63 (6-26); Blood Urea Nitrogen 65 mg/dL (8-23); Calcium 9.8 mg/dL (8.6-10.3); Carbon Dioxide 37 mEq/L (23-29); Chloride 95 mEq/L (98-107); Glucose 199 mg/dL (70-105); Osmolality,Calculated 304 (280-300); Potassium 5.1 mEq/L (3.5-5.1); Sodium 135 mEq/L (136-145); eGFR For African Americans > 60 (> 60); eGFR For Non-African Americans 53 (> 60)
[2020-06-04] MEDS: Pantoprazole 40 MG VIAL IVP SCH (17:22)
[2020-06-04] MEDS: Furosemide 40 MG/4 ML VIAL IVP SCH (21:31)
[2020-06-04] MEDS: ALPRAZolam 1 MG TABLET PO PRN (23:36)
[2020-06-05] MEDS: Acetaminophen 325 MG TABLET PO PRN (01:31)
[2020-06-05 03:55] LABS: Basophils % 0.1 %; Hematocrit 37.3 % (35.3-44.9); Hemoglobin 10.8 g/dL (11.5-15.4); Immature Granulocytes % 0.7 % (0-4); Lymphocytes # 1.7 K/mcL (0.6-4.6); Lymphocytes % 22.4 %; Mean Corpuscular Hemoglobin 27.6 pg (28.0-33.3); Mean Corpuscular Volume 95.2 fL (83.0-100.0); Mean Platelet Volume 9.9 fL (9.4-12.4); Monocytes # 0.9 K/mcL (0.0-1.3); Monocytes % 12.1 %; Neutrophils # 4.9 K/mcL (1.6-8.9); Platelet Count 285 K/mcL (140-400); Red Blood Count 3.92 M/mcL (3.82-4.97); Red Cell Distribution Width 15.3 % (11.5-14.5); Segmented Neutrophils % 64.7 %; White Blood Count 7.6 K/mcL (4.3-11.1)
[2020-06-05] MEDS: Ipratropium/Albuterol Neb 3 ML IH SCH ×5 (03:57→19:16)
[2020-06-05] MEDS: Acetylcysteine 10% 2 ML INHSOL IH SCH ×5 (03:57→19:16)
[2020-06-05 04:02] LABS: BUN/Creatinine Ratio 73 (6-26); Blood Urea Nitrogen 62 mg/dL (8-23); Calcium 9.7 mg/dL (8.6-10.3); Carbon Dioxide 38 mEq/L (23-29); Chloride 94 mEq/L (98-107); Glucose 280 mg/dL (70-105); Magnesium 2.2 mg/dL (1.6-2.6); Osmolality,Calculated 306 (280-300); Potassium 5.1 mEq/L (3.5-5.1); Sodium 134 mEq/L (136-145); eGFR For African Americans > 60 (> 60); eGFR For Non-African Americans > 60 (> 60)
[2020-06-05] MEDS: Insulin LISPRO 300 UNITS/3 ML VIAL SUBQ SCH ×6 (08:12→17:12)
[2020-06-05] MEDS: Pantoprazole 40 MG VIAL IVP SCH (08:13)
[2020-06-05] MEDS: Insulin DETEMIR 100 UNIT/ML X5UNITS SUBQ SCH ×2 (08:13→20:39)
[2020-06-05] MEDS: predniSONE 20 MG TABLET PO SCH (08:14)
[2020-06-05] MEDS: Apixaban 5 MG TABLET PO SCH ×2 (08:14→20:39)
[2020-06-05] MEDS: Lactobacillus 1 EACH CAP.SPRINK PO SCH ×2 (08:14→20:39)
[2020-06-05] MEDS: Spironolactone 25 MG TABLET PO SCH (08:14)
[2020-06-05] MEDS: Furosemide 40 MG/4 ML VIAL IVP SCH ×2 (08:14→20:39)
[2020-06-05] MEDS: PARoxetine 20 MG TABLET PO SCH (08:15)
[2020-06-05] MEDS: DilTIAZem CD (24hr) 240 MG CAP.ER.24H PO SCH (08:15)
[2020-06-05] MEDS: Isosorbide MONOnitrate (24 HR) 30 MG TAB.ER.24H PO SCH (08:15)
[2020-06-05] MEDS: Aspirin Enteric Coated 81 MG Tablet PO SCH (08:15)
[2020-06-05] MEDS: Cholecalciferol (D-3) 1,000 UNIT (25MCG) TABLET PO SCH (08:15)
[2020-06-05] MEDS: Multivit/Ca/Min/Fe/FA 1 TAB TABLET PO SCH (08:15)
[2020-06-05] MEDS: lisinopriL 5 MG TABLET PO SCH (09:57)
[2020-06-06] MEDS: Ipratropium/Albuterol Neb 3 ML IH SCH ×7 (00:15→23:03)
[2020-06-06] MEDS: Acetylcysteine 10% 2 ML INHSOL IH SCH ×7 (00:15→23:03)
[2020-06-06 04:06] LABS: ABG Base Excess 18 mEq/L (-2 to 3); ABG HCO3 48 mEq/L (21-27); ABG Oxygen Saturation 85 % (95-98); ABG PCO2 89 mmHg (35-45); ABG PH 7.34 pH Units (7.32-7.45); ABG PO2 58 mmHg (85-104); ABG TCO2 > 50 mEq/L (20-26)
[2020-06-06 06:17] LABS: Basophils % 0.2 %; Eosinophils # 0.1 K/mcL (0.0-0.6); Eosinophils % 1.1 %; Immature Granulocytes % 0.3 % (0-4); Lymphocytes % 31.1 %; Mean Corpuscular HGB Conc 29.7 g/dL (31.6-35.5); Mean Corpuscular Hemoglobin 27.3 pg (28.0-33.3); Mean Corpuscular Volume 91.8 fL (83.0-100.0); Mean Platelet Volume 9.4 fL (9.4-12.4); Monocytes # 1.1 K/mcL (0.0-1.3); Monocytes % 16.5 %; Neutrophils # 3.3 K/mcL (1.6-8.9); Platelet Count 244 K/mcL (140-400); Red Blood Count 4.03 M/mcL (3.82-4.97); Red Cell Distribution Width 15.3 % (11.5-14.5); Segmented Neutrophils % 50.8 %; White Blood Count 6.5 K/mcL (4.3-11.1)
[2020-06-06 06:43] LABS: BUN/Creatinine Ratio 71 (6-26); Blood Urea Nitrogen 53 mg/dL (8-23); Calcium 9.9 mg/dL (8.6-10.3); Carbon Dioxide 44 mEq/L (23-29); Chloride 95 mEq/L (98-107); Glucose 174 mg/dL (70-105); Osmolality,Calculated 311 (280-300); Potassium 4.6 mEq/L (3.5-5.1); Sodium 141 mEq/L (136-145); eGFR For African Americans > 60 (> 60); eGFR For Non-African Americans > 60 (> 60)
[2020-06-06] MEDS: Insulin LISPRO 300 UNITS/3 ML VIAL SUBQ SCH ×6 (09:49→16:36)
[2020-06-06 10:54] LABS: ABG Base Excess 17 mEq/L (-2 to 3); ABG HCO3 46 mEq/L (21-27); ABG Oxygen Saturation 94 % (95-98); ABG PCO2 78 mmHg (35-45); ABG PH 7.38 pH Units (7.32-7.45); ABG PO2 76 mmHg (85-104); ABG TCO2 48 mEq/L (20-26)
[2020-06-06] MEDS: PARoxetine 20 MG TABLET PO SCH (11:13)
[2020-06-06] MEDS: Cholecalciferol (D-3) 1,000 UNIT (25MCG) TABLET PO SCH (11:13)
[2020-06-06] MEDS: predniSONE 20 MG TABLET PO SCH (11:13)
[2020-06-06] MEDS: Spironolactone 25 MG TABLET PO SCH (11:14)
[2020-06-06] MEDS: Pantoprazole 40 MG VIAL IVP SCH (11:14)
[2020-06-06] MEDS: Multivit/Ca/Min/Fe/FA 1 TAB TABLET PO SCH (11:14)
[2020-06-06] MEDS: Isosorbide MONOnitrate (24 HR) 30 MG TAB.ER.24H PO SCH (11:14)
[2020-06-06] MEDS: DilTIAZem CD (24hr) 240 MG CAP.ER.24H PO SCH (11:14)
[2020-06-06] MEDS: Lactobacillus 1 EACH CAP.SPRINK PO SCH ×2 (11:14→20:12)
[2020-06-06] MEDS: Apixaban 5 MG TABLET PO SCH ×2 (11:14→20:12)
[2020-06-06] MEDS: lisinopriL 5 MG TABLET PO SCH (11:14)
[2020-06-06] MEDS: Aspirin Enteric Coated 81 MG Tablet PO SCH (11:14)
[2020-06-06] MEDS: Insulin DETEMIR 100 UNIT/ML X5UNITS SUBQ SCH ×2 (11:18→20:13)
[2020-06-07 03:48] LABS: VBG HCO3 43 mEq/L (21-27); VBG PCO2 69 mmHg (41-51); VBG PO2 81 mmHg (25-50)
[2020-06-07 03:50] LABS: Basophils % 0.1 %; Eosinophils % 0.3 %; Hematocrit 36.5 % (35.3-44.9); Hemoglobin 10.7 g/dL (11.5-15.4); Immature Granulocytes % 0.3 % (0-4); Lymphocytes # 1.8 K/mcL (0.6-4.6); Lymphocytes % 25.7 %; Mean Corpuscular HGB Conc 29.3 g/dL (31.6-35.5); Mean Corpuscular Hemoglobin 27.4 pg (28.0-33.3); Mean Corpuscular Volume 93.4 fL (83.0-100.0); Monocytes # 0.9 K/mcL (0.0-1.3); Monocytes % 13.5 %; Neutrophils # 4.1 K/mcL (1.6-8.9); Platelet Count 257 K/mcL (140-400); Red Blood Count 3.91 M/mcL (3.82-4.97); Segmented Neutrophils % 60.1 %; White Blood Count 6.9 K/mcL (4.3-11.1)
[2020-06-07 04:11] LABS: BUN/Creatinine Ratio 61 (6-26); Blood Urea Nitrogen 38 mg/dL (8-23); Calcium 9.6 mg/dL (8.6-10.3); Chloride 94 mEq/L (98-107); Glucose 223 mg/dL (70-105); Osmolality,Calculated 304 (280-300); Potassium 4.6 mEq/L (3.5-5.1); Sodium 139 mEq/L (136-145); eGFR For African Americans > 60 (> 60); eGFR For Non-African Americans > 60 (> 60)
[2020-06-07] MEDS: Acetylcysteine 10% 2 ML INHSOL IH SCH ×6 (04:14→23:34)
[2020-06-07] MEDS: Ipratropium/Albuterol Neb 3 ML IH SCH ×6 (04:14→23:34)
[2020-06-07 04:22] LABS: Carbon Dioxide 43 mEq/L (23-29)
[2020-06-07] MEDS: Acetaminophen 325 MG TABLET PO PRN (04:40)
[2020-06-07] MEDS: Pantoprazole 40 MG VIAL IVP SCH (08:32)
[2020-06-07] MEDS: Lactobacillus 1 EACH CAP.SPRINK PO SCH ×2 (08:37→21:08)
[2020-06-07] MEDS: Cholecalciferol (D-3) 1,000 UNIT (25MCG) TABLET PO SCH (08:37)
[2020-06-07] MEDS: Spironolactone 25 MG TABLET PO SCH (08:37)
[2020-06-07] MEDS: DilTIAZem CD (24hr) 240 MG CAP.ER.24H PO SCH (08:37)
[2020-06-07] MEDS: predniSONE 20 MG TABLET PO SCH (08:37)
[2020-06-07] MEDS: Multivit/Ca/Min/Fe/FA 1 TAB TABLET PO SCH (08:38)
[2020-06-07] MEDS: Aspirin Enteric Coated 81 MG Tablet PO SCH (08:38)
[2020-06-07] MEDS: PARoxetine 20 MG TABLET PO SCH (08:38)
[2020-06-07] MEDS: lisinopriL 5 MG TABLET PO SCH (08:38)
[2020-06-07] MEDS: Isosorbide MONOnitrate (24 HR) 30 MG TAB.ER.24H PO SCH (08:39)
[2020-06-07] MEDS: Apixaban 5 MG TABLET PO SCH ×2 (08:39→21:08)
[2020-06-07] MEDS: Insulin LISPRO 300 UNITS/3 ML VIAL SUBQ SCH ×6 (08:40→16:58)
[2020-06-07] MEDS: Insulin DETEMIR 100 UNIT/ML X5UNITS SUBQ SCH ×2 (08:42→21:08)
[2020-06-07] MEDS ORDERED: Furosemide 40 MG/4 ML VIAL IVP SCH (09:00)
[2020-06-07] MEDS: Nitroglycerin 0.4 MG TAB.SUBL SL PRN (22:30)
[2020-06-08] MEDS: Furosemide 40 MG/4 ML VIAL IVP SCH (03:12)
[2020-06-08] MEDS: Ipratropium/Albuterol Neb 3 ML IH SCH ×6 (03:33→23:51)
[2020-06-08] MEDS: Acetylcysteine 10% 2 ML INHSOL IH SCH ×6 (03:33→23:51)
[2020-06-08 06:53] LABS: Basophils % 0.2 %; Eosinophils # 0.1 K/mcL (0.0-0.6); Hematocrit 39.3 % (35.3-44.9); Hemoglobin 11.6 g/dL (11.5-15.4); Immature Granulocytes % 0.3 % (0-4); Lymphocytes # 2.8 K/mcL (0.6-4.6); Lymphocytes % 32.9 %; Mean Corpuscular HGB Conc 29.5 g/dL (31.6-35.5); Mean Corpuscular Hemoglobin 27.3 pg (28.0-33.3); Mean Corpuscular Volume 92.5 fL (83.0-100.0); Mean Platelet Volume 10.1 fL (9.4-12.4); Monocytes % 11.6 %; Platelet Count 281 K/mcL (140-400); Red Blood Count 4.25 M/mcL (3.82-4.97); Red Cell Distribution Width 15.1 % (11.5-14.5); White Blood Count 8.6 K/mcL (4.3-11.1)
[2020-06-08 07:14] LABS: Neutrophils # 4.6 K/mcL (1.6-8.9)
[2020-06-08] MEDS ORDERED: Isovue-370 500 ML BOTTLE IVP ONE (07:42)
[2020-06-08 07:52] LABS: Anisocytosis 1+ (Not Present); Hypochromasia Present (Not Present)
[2020-06-08 07:53] LABS: Platelet Estimate Normal (Normal)
[2020-06-08] MEDS: predniSONE 20 MG TABLET PO SCH (08:02)
[2020-06-08] MEDS: Apixaban 5 MG TABLET PO SCH (08:02)
[2020-06-08] MEDS: Isosorbide MONOnitrate (24 HR) 30 MG TAB.ER.24H PO SCH (08:02)
[2020-06-08] MEDS: Multivit/Ca/Min/Fe/FA 1 TAB TABLET PO SCH (08:03)
[2020-06-08] MEDS: DilTIAZem CD (24hr) 240 MG CAP.ER.24H PO SCH (08:03)
[2020-06-08] MEDS: lisinopriL 5 MG TABLET PO SCH (08:03)
[2020-06-08] MEDS: Insulin DETEMIR 100 UNIT/ML X5UNITS SUBQ SCH ×2 (08:03→20:28)
[2020-06-08] MEDS: Aspirin Enteric Coated 81 MG Tablet PO SCH (08:03)
[2020-06-08] MEDS: Cholecalciferol (D-3) 1,000 UNIT (25MCG) TABLET PO SCH (08:03)
[2020-06-08] MEDS: Spironolactone 25 MG TABLET PO SCH (08:03)
[2020-06-08] MEDS: Lactobacillus 1 EACH CAP.SPRINK PO SCH ×2 (08:03→20:08)
[2020-06-08] MEDS: PARoxetine 20 MG TABLET PO SCH (08:03)
[2020-06-08] MEDS: Insulin LISPRO 300 UNITS/3 ML VIAL SUBQ SCH ×6 (08:04→16:16)
[2020-06-08] MEDS ORDERED: Furosemide 40 MG TABLET PO SCH (09:00)
[2020-06-08] MEDS ORDERED: *HR* Heparin 5,000 UNIT/ML VIAL IVP PRN ×2 (10:13)
[2020-06-08 10:54] LABS: BUN/Creatinine Ratio 54 (6-26); Blood Urea Nitrogen 36 mg/dL (8-23); Carbon Dioxide 38 mEq/L (23-29); Chloride 90 mEq/L (98-107); Glucose 256 mg/dL (70-105); Magnesium 1.9 mg/dL (1.6-2.6); Osmolality,Calculated 301 (280-300); Potassium 4.8 mEq/L (3.5-5.1); Sodium 137 mEq/L (136-145); eGFR For African Americans > 60 (> 60); eGFR For Non-African Americans > 60 (> 60)
[2020-06-08 11:05] LABS: Hematocrit 35.8 % (35.3-44.9); Hemoglobin 10.5 g/dL (11.5-15.4); Mean Corpuscular HGB Conc 29.3 g/dL (31.6-35.5); Mean Corpuscular Hemoglobin 27.1 pg (28.0-33.3); Mean Corpuscular Volume 92.3 fL (83.0-100.0); Mean Platelet Volume 10.1 fL (9.4-12.4); Platelet Count 259 K/mcL (140-400); Red Blood Count 3.88 M/mcL (3.82-4.97); Red Cell Distribution Width 15.2 % (11.5-14.5)
[2020-06-08 11:14] LABS: INR 1.3; Prothrombin Time 14.9 Seconds (9.4-12.1)
[2020-06-08 11:23] LABS: Heparin anti-factor XA UFH 1.57 IU/mL (0.30-0.70)
[2020-06-08] MEDS: Heparin 25,000UNIT/250ML 1/2NS 25,000 UNIT/250 ML IV.SOLN IVC SCH (11:42)
[2020-06-08] MEDS ORDERED: Warfarin perPT PO PRN (19:16)
[2020-06-08] MEDS ORDERED: *HR* Warfarin 5 MG TABLET PO ONE (19:17)
[2020-06-08] MEDS: Acetaminophen 325 MG TABLET PO PRN (23:24)
[2020-06-09 02:23] LABS: Heparin anti-factor XA UFH 0.94 IU/mL (0.30-0.70); INR 1.1
[2020-06-09] MEDS: Acetylcysteine 10% 2 ML INHSOL IH SCH ×6 (04:04→23:02)
[2020-06-09] MEDS: Ipratropium/Albuterol Neb 3 ML IH SCH ×6 (04:04→23:01)
[2020-06-09] MEDS: ALPRAZolam 1 MG TABLET PO PRN (04:28)
[2020-06-09 06:05] LABS: INR 1.2; Prothrombin Time 13.3 Seconds (9.4-12.1)
[2020-06-09 06:18] LABS: Activated Partial Thrombo Time 82.9 Seconds (26.0-36.0)
[2020-06-09] MEDS: Heparin 25,000UNIT/250ML 1/2NS 25,000 UNIT/250 ML IV.SOLN IVC SCH ×2 (07:57→22:46)
[2020-06-09] MEDS: Insulin LISPRO 300 UNITS/3 ML VIAL SUBQ SCH ×4 (09:35→17:14)
[2020-06-09] MEDS: PARoxetine 20 MG TABLET PO SCH (09:36)
[2020-06-09] MEDS: predniSONE 20 MG TABLET PO SCH (09:36)
[2020-06-09] MEDS: Isosorbide MONOnitrate (24 HR) 30 MG TAB.ER.24H PO SCH (09:36)
[2020-06-09] MEDS: Cholecalciferol (D-3) 1,000 UNIT (25MCG) TABLET PO SCH (09:36)
[2020-06-09] MEDS: Furosemide 40 MG TABLET PO SCH (09:37)
[2020-06-09] MEDS: lisinopriL 5 MG TABLET PO SCH (09:37)
[2020-06-09] MEDS: Multivit/Ca/Min/Fe/FA 1 TAB TABLET PO SCH (09:37)
[2020-06-09] MEDS: Lactobacillus 1 EACH CAP.SPRINK PO SCH ×2 (09:37→21:38)
[2020-06-09] MEDS: Spironolactone 25 MG TABLET PO SCH (09:37)
[2020-06-09] MEDS: DilTIAZem CD (24hr) 240 MG CAP.ER.24H PO SCH (09:37)
[2020-06-09] MEDS: Acetaminophen 325 MG TABLET PO PRN (09:38)
[2020-06-09] MEDS: Aspirin Enteric Coated 81 MG Tablet PO SCH (09:38)
[2020-06-09] MEDS: Insulin DETEMIR 100 UNIT/ML X5UNITS SUBQ SCH ×2 (09:51→21:39)
[2020-06-09] MEDS ORDERED: Insulin LISPRO 300 UNITS/3 ML VIAL SUBQ SCH (17:00)
[2020-06-09] MEDS ORDERED: *HR* Warfarin 5 MG TABLET PO ONE (18:00)
[2020-06-10 02:37] LABS: Hematocrit 36.8 % (35.3-44.9)
[2020-06-10 02:38] LABS: Hemoglobin 10.8 g/dL (11.5-15.4); Mean Corpuscular HGB Conc 29.3 g/dL (31.6-35.5); Mean Corpuscular Hemoglobin 27.2 pg (28.0-33.3); Mean Corpuscular Volume 92.7 fL (83.0-100.0); Mean Platelet Volume 9.9 fL (9.4-12.4); Platelet Count 246 K/mcL (140-400); Red Blood Count 3.97 M/mcL (3.82-4.97); White Blood Count 7.6 K/mcL (4.3-11.1)
[2020-06-10 02:47] LABS: INR 1.1; Prothrombin Time 12.8 Seconds (9.4-12.1)
[2020-06-10 02:51] LABS: BUN/Creatinine Ratio 48 (6-26); Blood Urea Nitrogen 32 mg/dL (8-23); Calcium 9.6 mg/dL (8.6-10.3); Carbon Dioxide 43 mEq/L (23-29); Chloride 93 mEq/L (98-107); Glucose 327 mg/dL (70-105); Osmolality,Calculated 304 (280-300); Potassium 4.8 mEq/L (3.5-5.1); Sodium 137 mEq/L (136-145); eGFR For African Americans > 60 (> 60); eGFR For Non-African Americans > 60 (> 60)
[2020-06-10] MEDS: Ipratropium/Albuterol Neb 3 ML IH SCH ×6 (03:45→23:22)
[2020-06-10] MEDS: Acetylcysteine 10% 2 ML INHSOL IH SCH ×6 (03:45→23:22)
[2020-06-10] MEDS ORDERED: Insulin LISPRO 300 UNITS/3 ML VIAL SUBQ SCH (06:00)
[2020-06-10] MEDS: Isosorbide MONOnitrate (24 HR) 30 MG TAB.ER.24H PO SCH (09:24)
[2020-06-10] MEDS: DilTIAZem CD (24hr) 240 MG CAP.ER.24H PO SCH (09:24)
[2020-06-10] MEDS: Lactobacillus 1 EACH CAP.SPRINK PO SCH ×2 (09:24→20:09)
[2020-06-10] MEDS: Aspirin Enteric Coated 81 MG Tablet PO SCH (09:25)
[2020-06-10] MEDS: Furosemide 40 MG TABLET PO SCH (09:25)
[2020-06-10] MEDS: predniSONE 10 MG TABLET PO SCH (09:25)
[2020-06-10] MEDS: Spironolactone 25 MG TABLET PO SCH (09:26)
[2020-06-10] MEDS: Cholecalciferol (D-3) 1,000 UNIT (25MCG) TABLET PO SCH (09:26)
[2020-06-10] MEDS: PARoxetine 20 MG TABLET PO SCH (09:26)
[2020-06-10] MEDS: Multivit/Ca/Min/Fe/FA 1 TAB TABLET PO SCH (09:26)
[2020-06-10] MEDS: lisinopriL 5 MG TABLET PO SCH (09:26)
[2020-06-10] MEDS: Insulin DETEMIR 100 UNIT/ML X5UNITS SUBQ SCH ×2 (09:28→20:24)
[2020-06-10] MEDS: Insulin LISPRO 300 UNITS/3 ML VIAL SUBQ SCH ×5 (12:10→20:24)
[2020-06-10] MEDS: *HR* Enoxaparin 120 MG/0.8 ML SYRINGE SQ SCH (17:44)
[2020-06-10] MEDS: Acetaminophen 325 MG TABLET PO PRN (20:08)
[2020-06-10] MEDS: ALPRAZolam 1 MG TABLET PO PRN (20:09)
[2020-06-11] MEDS: Acetylcysteine 10% 2 ML INHSOL IH SCH ×3 (04:21→11:24)
[2020-06-11] MEDS: Ipratropium/Albuterol Neb 3 ML IH SCH ×3 (04:21→11:24)
[2020-06-11 05:47] LABS: Hematocrit 36.2 % (35.3-44.9); Hemoglobin 10.7 g/dL (11.5-15.4); Mean Corpuscular HGB Conc 29.6 g/dL (31.6-35.5); Mean Corpuscular Hemoglobin 27.3 pg (28.0-33.3); Mean Corpuscular Volume 92.3 fL (83.0-100.0); Mean Platelet Volume 10.2 fL (9.4-12.4); Platelet Count 244 K/mcL (140-400); Red Blood Count 3.92 M/mcL (3.82-4.97); Red Cell Distribution Width 15.2 % (11.5-14.5); White Blood Count 8.3 K/mcL (4.3-11.1)
[2020-06-11 05:56] LABS: INR 1.1; Prothrombin Time 12.2 Seconds (9.4-12.1)
[2020-06-11] MEDS: *HR* Enoxaparin 120 MG/0.8 ML SYRINGE SQ SCH ×2 (06:00→18:11)
[2020-06-11 06:26] LABS: BUN/Creatinine Ratio 48 (6-26); Blood Urea Nitrogen 35 mg/dL (8-23); Calcium 9.6 mg/dL (8.6-10.3); Carbon Dioxide 43 mEq/L (23-29); Chloride 96 mEq/L (98-107); Glucose 170 mg/dL (70-105); Osmolality,Calculated 302 (280-300); Potassium 4.7 mEq/L (3.5-5.1); Sodium 140 mEq/L (136-145); eGFR For African Americans > 60 (> 60); eGFR For Non-African Americans > 60 (> 60)
[2020-06-11] MEDS: Isosorbide MONOnitrate (24 HR) 30 MG TAB.ER.24H PO SCH (08:20)
[2020-06-11] MEDS: Multivit/Ca/Min/Fe/FA 1 TAB TABLET PO SCH (08:20)
[2020-06-11] MEDS: Spironolactone 25 MG TABLET PO SCH (08:20)
[2020-06-11] MEDS: Aspirin Enteric Coated 81 MG Tablet PO SCH (08:21)
[2020-06-11] MEDS: PARoxetine 20 MG TABLET PO SCH (08:21)
[2020-06-11] MEDS: predniSONE 10 MG TABLET PO SCH (08:21)
[2020-06-11] MEDS: Lactobacillus 1 EACH CAP.SPRINK PO SCH ×2 (08:21→21:14)
[2020-06-11] MEDS: lisinopriL 5 MG TABLET PO SCH (08:21)
[2020-06-11] MEDS: Furosemide 40 MG TABLET PO SCH (08:21)
[2020-06-11] MEDS: DilTIAZem CD (24hr) 240 MG CAP.ER.24H PO SCH (08:21)
[2020-06-11] MEDS: Cholecalciferol (D-3) 1,000 UNIT (25MCG) TABLET PO SCH (08:22)
[2020-06-11] MEDS: Insulin LISPRO 300 UNITS/3 ML VIAL SUBQ SCH ×8 (08:24→21:14)
[2020-06-11] MEDS: Insulin DETEMIR 100 UNIT/ML X5UNITS SUBQ SCH ×2 (08:24→21:14)
[2020-06-11] MEDS: Heparin 25,000UNIT/250ML 1/2NS 25,000 UNIT/250 ML IV.SOLN IVC SCH (08:40)
[2020-06-11] MEDS ORDERED: Ipratropium/Albuterol Neb 3 ML IH PRN (11:44)
[2020-06-11] MEDS ORDERED: Warfarin perPT PO PRN (18:00)
[2020-06-11] MEDS ORDERED: *HR* Warfarin 5 MG TABLET PO ONE (18:00)
[2020-06-11] MEDS: ALPRAZolam 1 MG TABLET PO PRN (21:14)
[2020-06-12 02:14] LABS: Hemoglobin 10.6 g/dL (11.5-15.4); Mean Corpuscular HGB Conc 29.4 g/dL (31.6-35.5); Mean Corpuscular Volume 91.6 fL (83.0-100.0); Mean Platelet Volume 10.6 fL (9.4-12.4); Platelet Count 258 K/mcL (140-400); Red Blood Count 3.93 M/mcL (3.82-4.97); Red Cell Distribution Width 15.2 % (11.5-14.5); White Blood Count 8.3 K/mcL (4.3-11.1)
[2020-06-12 02:21] LABS: Prothrombin Time 12.1 Seconds (9.4-12.1)
[2020-06-12 02:34] LABS: BUN/Creatinine Ratio 50 (6-26); Blood Urea Nitrogen 29 mg/dL (8-23); Calcium 9.5 mg/dL (8.6-10.3); Carbon Dioxide 43 mEq/L (23-29); Chloride 95 mEq/L (98-107); Glucose 102 mg/dL (70-105); Osmolality,Calculated 296 (280-300); Potassium 4.5 mEq/L (3.5-5.1); Sodium 140 mEq/L (136-145); eGFR For African Americans > 60 (> 60); eGFR For Non-African Americans > 60 (> 60)
[2020-06-12] MEDS: *HR* Enoxaparin 120 MG/0.8 ML SYRINGE SQ SCH ×2 (05:25→17:15)
[2020-06-12] MEDS: Multivit/Ca/Min/Fe/FA 1 TAB TABLET PO SCH (07:49)
[2020-06-12] MEDS: DilTIAZem CD (24hr) 240 MG CAP.ER.24H PO SCH (07:50)
[2020-06-12] MEDS: Spironolactone 25 MG TABLET PO SCH (07:50)
[2020-06-12] MEDS: Lactobacillus 1 EACH CAP.SPRINK PO SCH ×2 (07:50→20:49)
[2020-06-12] MEDS: Cholecalciferol (D-3) 1,000 UNIT (25MCG) TABLET PO SCH (07:50)
[2020-06-12] MEDS: Aspirin Enteric Coated 81 MG Tablet PO SCH (07:50)
[2020-06-12] MEDS: Furosemide 40 MG TABLET PO SCH (07:50)
[2020-06-12] MEDS: PARoxetine 20 MG TABLET PO SCH (07:50)
[2020-06-12] MEDS: lisinopriL 5 MG TABLET PO SCH (07:50)
[2020-06-12] MEDS: predniSONE 10 MG TABLET PO SCH (07:50)
[2020-06-12] MEDS: Isosorbide MONOnitrate (24 HR) 30 MG TAB.ER.24H PO SCH (07:50)
[2020-06-12] MEDS: Insulin LISPRO 300 UNITS/3 ML VIAL SUBQ SCH ×7 (07:51→20:43)
[2020-06-12] MEDS: Insulin DETEMIR 100 UNIT/ML X5UNITS SUBQ SCH ×2 (07:53→20:43)
[2020-06-12 08:27] LABS: ABG Base Excess 17 mEq/L (-2 to 3); ABG HCO3 46 mEq/L (21-27); ABG Oxygen Saturation 95 % (95-98); ABG PCO2 79 mmHg (35-45); ABG PH 7.38 pH Units (7.32-7.45); ABG PO2 81 mmHg (85-104); ABG TCO2 49 mEq/L (20-26); Blood Gas Modality BiLevel; Blood Gas Pressure Support 6 cm H2O; Blood Gas VT 500 cc
[2020-06-12] MEDS ORDERED: *HR* Warfarin 3 MG TABLET PO ONE (18:00)
[2020-06-13 05:02] LABS: Platelet Count 245 K/mcL (140-400)
[2020-06-13 05:03] LABS: Hematocrit 38.1 % (35.3-44.9); Mean Corpuscular HGB Conc 28.9 g/dL (31.6-35.5); Mean Corpuscular Hemoglobin 26.9 pg (28.0-33.3); Mean Corpuscular Volume 93.2 fL (83.0-100.0); Mean Platelet Volume 10.1 fL (9.4-12.4); Red Blood Count 4.09 M/mcL (3.82-4.97); Red Cell Distribution Width 15.3 % (11.5-14.5); White Blood Count 8.4 K/mcL (4.3-11.1)
[2020-06-13 05:11] LABS: INR 1.1; Prothrombin Time 12.9 Seconds (9.4-12.1)
[2020-06-13] MEDS: *HR* Enoxaparin 120 MG/0.8 ML SYRINGE SQ SCH ×2 (05:45→17:03)
[2020-06-13 06:21] LABS: BUN/Creatinine Ratio 51 (6-26); Blood Urea Nitrogen 37 mg/dL (8-23); Calcium 9.7 mg/dL (8.6-10.3); Carbon Dioxide 45 mEq/L (23-29); Chloride 95 mEq/L (98-107); Glucose 178 mg/dL (70-105); Osmolality,Calculated 303 (280-300); Potassium 4.9 mEq/L (3.5-5.1); Sodium 140 mEq/L (136-145); eGFR For African Americans > 60 (> 60); eGFR For Non-African Americans > 60 (> 60)
[2020-06-13] MEDS: Aspirin Enteric Coated 81 MG Tablet PO SCH (08:41)
[2020-06-13] MEDS: Furosemide 40 MG TABLET PO SCH (08:41)
[2020-06-13] MEDS: DilTIAZem CD (24hr) 240 MG CAP.ER.24H PO SCH (08:41)
[2020-06-13] MEDS: Isosorbide MONOnitrate (24 HR) 30 MG TAB.ER.24H PO SCH (08:41)
[2020-06-13] MEDS: Spironolactone 25 MG TABLET PO SCH (08:41)
[2020-06-13] MEDS: Lactobacillus 1 EACH CAP.SPRINK PO SCH ×2 (08:41→20:37)
[2020-06-13] MEDS: predniSONE 10 MG TABLET PO SCH (08:42)
[2020-06-13] MEDS: PARoxetine 20 MG TABLET PO SCH (08:42)
[2020-06-13] MEDS: Multivit/Ca/Min/Fe/FA 1 TAB TABLET PO SCH (08:42)
[2020-06-13] MEDS: Cholecalciferol (D-3) 1,000 UNIT (25MCG) TABLET PO SCH (08:42)
[2020-06-13] MEDS: Insulin DETEMIR 100 UNIT/ML X5UNITS SUBQ SCH ×2 (08:42→20:37)
[2020-06-13] MEDS: lisinopriL 5 MG TABLET PO SCH (08:42)
[2020-06-13] MEDS: Insulin LISPRO 300 UNITS/3 ML VIAL SUBQ SCH ×7 (08:42→20:37)
[2020-06-13] MEDS ORDERED: *HR* Warfarin 7.5 MG TABLET PO ONE (18:00)
[2020-06-14] MEDS: Nitroglycerin 0.4 MG TAB.SUBL SL PRN (01:42)
[2020-06-14 02:05] LABS: Hematocrit 35.7 % (35.3-44.9); Hemoglobin 10.5 g/dL (11.5-15.4); Mean Corpuscular HGB Conc 29.4 g/dL (31.6-35.5); Mean Corpuscular Volume 91.8 fL (83.0-100.0); Platelet Count 247 K/mcL (140-400); Red Blood Count 3.89 M/mcL (3.82-4.97); Red Cell Distribution Width 15.2 % (11.5-14.5); White Blood Count 8.2 K/mcL (4.3-11.1)
[2020-06-14 02:14] LABS: VBG HCO3 41 mEq/L (21-27); VBG PCO2 73 mmHg (41-51); VBG PH 7.35 pH Units (7.32-7.42); VBG PO2 104 mmHg (25-50)
[2020-06-14 02:22] LABS: INR 1.3; Prothrombin Time 14.5 Seconds (9.4-12.1)
[2020-06-14 02:33] LABS: BUN/Creatinine Ratio 66 (6-26); Blood Urea Nitrogen 43 mg/dL (8-23); Calcium 9.7 mg/dL (8.6-10.3); Carbon Dioxide 41 mEq/L (23-29); Chloride 95 mEq/L (98-107); Glucose 237 mg/dL (70-105); Osmolality,Calculated 305 (280-300); Potassium 4.4 mEq/L (3.5-5.1); Sodium 138 mEq/L (136-145); eGFR For African Americans > 60 (> 60); eGFR For Non-African Americans > 60 (> 60)
[2020-06-14] MEDS: *HR* Enoxaparin 120 MG/0.8 ML SYRINGE SQ SCH ×2 (05:52→18:05)
[2020-06-14] MEDS: Cholecalciferol (D-3) 1,000 UNIT (25MCG) TABLET PO SCH (08:26)
[2020-06-14] MEDS: Aspirin Enteric Coated 81 MG Tablet PO SCH (08:26)
[2020-06-14] MEDS: Isosorbide MONOnitrate (24 HR) 30 MG TAB.ER.24H PO SCH (08:27)
[2020-06-14] MEDS: Furosemide 40 MG TABLET PO SCH (08:27)
[2020-06-14] MEDS: PARoxetine 20 MG TABLET PO SCH (08:27)
[2020-06-14] MEDS: Lactobacillus 1 EACH CAP.SPRINK PO SCH ×2 (08:27→19:48)
[2020-06-14] MEDS: Multivit/Ca/Min/Fe/FA 1 TAB TABLET PO SCH (08:27)
[2020-06-14] MEDS: Spironolactone 25 MG TABLET PO SCH (08:28)
[2020-06-14] MEDS: DilTIAZem CD (24hr) 240 MG CAP.ER.24H PO SCH (08:28)
[2020-06-14] MEDS: lisinopriL 5 MG TABLET PO SCH (08:28)
[2020-06-14] MEDS: Insulin LISPRO 300 UNITS/3 ML VIAL SUBQ SCH ×7 (08:28→20:41)
[2020-06-14] MEDS: Insulin DETEMIR 100 UNIT/ML X5UNITS SUBQ SCH ×2 (08:29→19:47)
[2020-06-14 09:56] LABS: Metanephrine, Plasma 0.13 nmol/L (0.00-0.49)
[2020-06-14] MEDS ORDERED: *HR* Warfarin 7.5 MG TABLET PO ONE (18:00)
[2020-06-15] MEDS: *HR* Enoxaparin 120 MG/0.8 ML SYRINGE SQ SCH ×2 (05:41→17:25)
[2020-06-15 06:21] LABS: INR 1.7; Prothrombin Time 19.1 Seconds (9.4-12.1)
[2020-06-15] MEDS: Cholecalciferol (D-3) 1,000 UNIT (25MCG) TABLET PO SCH (09:32)
[2020-06-15] MEDS: PARoxetine 20 MG TABLET PO SCH (09:33)
[2020-06-15] MEDS: Multivit/Ca/Min/Fe/FA 1 TAB TABLET PO SCH (09:33)
[2020-06-15] MEDS: Lactobacillus 1 EACH CAP.SPRINK PO SCH ×2 (09:33→20:48)
[2020-06-15] MEDS: Aspirin Enteric Coated 81 MG Tablet PO SCH (09:33)
[2020-06-15] MEDS: Spironolactone 25 MG TABLET PO SCH (09:34)
[2020-06-15] MEDS: DilTIAZem CD (24hr) 240 MG CAP.ER.24H PO SCH (09:34)
[2020-06-15] MEDS: Isosorbide MONOnitrate (24 HR) 30 MG TAB.ER.24H PO SCH (09:34)
[2020-06-15] MEDS: Insulin LISPRO 300 UNITS/3 ML VIAL SUBQ SCH ×7 (09:34→20:46)
[2020-06-15] MEDS: Furosemide 40 MG TABLET PO SCH (09:34)
[2020-06-15] MEDS: lisinopriL 5 MG TABLET PO SCH (09:34)
[2020-06-15] MEDS: Insulin DETEMIR 100 UNIT/ML X5UNITS SUBQ SCH ×2 (09:35→20:47)
[2020-06-15] MEDS ORDERED: *HR* Warfarin 5 MG TABLET PO ONE (18:00)
[2020-06-16] MEDS: Acetaminophen 325 MG TABLET PO PRN ×3 (03:07→21:26)
[2020-06-16 05:17] LABS: Hematocrit 34.7 % (35.3-44.9); Hemoglobin 10.2 g/dL (11.5-15.4); Mean Corpuscular HGB Conc 29.4 g/dL (31.6-35.5); Mean Corpuscular Hemoglobin 26.9 pg (28.0-33.3); Mean Corpuscular Volume 91.6 fL (83.0-100.0); Mean Platelet Volume 10.3 fL (9.4-12.4); Platelet Count 224 K/mcL (140-400); Red Blood Count 3.79 M/mcL (3.82-4.97); Red Cell Distribution Width 15.3 % (11.5-14.5); White Blood Count 9.4 K/mcL (4.3-11.1)
[2020-06-16 05:26] LABS: INR 1.9; Prothrombin Time 21.5 Seconds (9.4-12.1)
[2020-06-16] MEDS: *HR* Enoxaparin 120 MG/0.8 ML SYRINGE SQ SCH ×2 (05:33→17:51)
[2020-06-16 05:34] LABS: BUN/Creatinine Ratio 62 (6-26); Blood Urea Nitrogen 38 mg/dL (8-23); Calcium 9.1 mg/dL (8.6-10.3); Carbon Dioxide 38 mEq/L (23-29); Chloride 97 mEq/L (98-107); Glucose 122 mg/dL (70-105); Osmolality,Calculated 296 (280-300); Potassium 4.1 mEq/L (3.5-5.1); Sodium 138 mEq/L (136-145); eGFR For African Americans > 60 (> 60); eGFR For Non-African Americans > 60 (> 60)
[2020-06-16] MEDS: Insulin LISPRO 300 UNITS/3 ML VIAL SUBQ SCH ×7 (08:31→20:26)
[2020-06-16] MEDS: Spironolactone 25 MG TABLET PO SCH (08:41)
[2020-06-16] MEDS: PARoxetine 20 MG TABLET PO SCH (08:42)
[2020-06-16] MEDS: Cholecalciferol (D-3) 1,000 UNIT (25MCG) TABLET PO SCH (08:42)
[2020-06-16] MEDS: Multivit/Ca/Min/Fe/FA 1 TAB TABLET PO SCH (08:42)
[2020-06-16] MEDS: Lactobacillus 1 EACH CAP.SPRINK PO SCH ×2 (08:42→20:25)
[2020-06-16] MEDS: Furosemide 40 MG TABLET PO SCH (08:42)
[2020-06-16] MEDS: Aspirin Enteric Coated 81 MG Tablet PO SCH (08:43)
[2020-06-16 09:16] LABS: Androstenedione 0.141 ng/mL (0.130-0.820)
[2020-06-16] MEDS: Insulin DETEMIR 100 UNIT/ML X5UNITS SUBQ SCH ×2 (09:43→20:26)
[2020-06-16] MEDS: DilTIAZem CD (24hr) 240 MG CAP.ER.24H PO SCH (09:43)
[2020-06-16] MEDS ORDERED: *HR* Warfarin 7.5 MG TABLET PO ONE (18:00)
[2020-06-16] MEDS: ALPRAZolam 1 MG TABLET PO PRN (20:25)
[2020-06-16] MEDS: Budesonide/Formoterol 160/4.5 1 PUFF INH IH SCH (20:37)
[2020-06-17 05:23] LABS: Hematocrit 34.7 % (35.3-44.9); Hemoglobin 10.3 g/dL (11.5-15.4); Mean Corpuscular HGB Conc 29.7 g/dL (31.6-35.5); Mean Corpuscular Volume 90.8 fL (83.0-100.0); Mean Platelet Volume 10.8 fL (9.4-12.4); Platelet Count 209 K/mcL (140-400); Red Blood Count 3.82 M/mcL (3.82-4.97); Red Cell Distribution Width 15.2 % (11.5-14.5); White Blood Count 6.3 K/mcL (4.3-11.1)
[2020-06-17 05:24] VITALS: BP 131/90
[2020-06-17 05:32] LABS: INR 1.8; Prothrombin Time 20.8 Seconds (9.4-12.1)
[2020-06-17] MEDS: *HR* Enoxaparin 120 MG/0.8 ML SYRINGE SQ SCH (05:39)
[2020-06-17 05:50] LABS: BUN/Creatinine Ratio 62 (6-26); Blood Urea Nitrogen 37 mg/dL (8-23); Calcium 8.9 mg/dL (8.6-10.3); Carbon Dioxide 39 mEq/L (23-29); Chloride 100 mEq/L (98-107); Glucose 125 mg/dL (70-105); Osmolality,Calculated 300 (280-300); Potassium 4.2 mEq/L (3.5-5.1); Sodium 140 mEq/L (136-145); eGFR For African Americans > 60 (> 60); eGFR For Non-African Americans > 60 (> 60)
[2020-06-17] MEDS: Budesonide/Formoterol 160/4.5 1 PUFF INH IH SCH (08:08)
[2020-06-17] MEDS: Insulin LISPRO 300 UNITS/3 ML VIAL SUBQ SCH ×2 (09:05→09:08)
[2020-06-17] MEDS: Multivit/Ca/Min/Fe/FA 1 TAB TABLET PO SCH (09:07)
[2020-06-17] MEDS: Lactobacillus 1 EACH CAP.SPRINK PO SCH (09:07)
[2020-06-17] MEDS: Spironolactone 25 MG TABLET PO SCH (09:07)
[2020-06-17] MEDS: Furosemide 40 MG TABLET PO SCH (09:07)
[2020-06-17] MEDS: Aspirin Enteric Coated 81 MG Tablet PO SCH (09:07)
[2020-06-17] MEDS: PARoxetine 20 MG TABLET PO SCH (09:07)
[2020-06-17] MEDS: Cholecalciferol (D-3) 1,000 UNIT (25MCG) TABLET PO SCH (09:07)
[2020-06-17] MEDS: Insulin DETEMIR 100 UNIT/ML X5UNITS SUBQ SCH (09:08)
[2020-06-17] MEDS ORDERED: *HR* Warfarin 7.5 MG TABLET PO ONE (18:00)
== END 2020-06-17 11:11 | DRG 291 ==
LOC: 3ANU 20:33 → EMEROOARM 20:33 → SUATTDRO 23:25 → 3ANU 23:42 → SUATTDRO 06-03 17:37
PROVIDERS: ADMIT Student in an Organized Health Care Education/Training Program; ATTEND Family Medicine

== ENCOUNTER 2021-01-22 22:23 | Inpatient (IN) ==
[2021-01-22] MEDS ORDERED: methylPREDNISolone 125 MG/2 ML VIAL IVP ONE (22:38)
[2021-01-22] MEDS ORDERED: Ipratropium/Albuterol Neb 3 ML IH ONE (22:39)
[2021-01-22 22:58] LABS: Basophils % 0.2 %; Eosinophils # 0.1 K/mcL (0.0-0.6); Eosinophils % 0.5 %; Hematocrit 41.7 % (35.3-44.9); Hemoglobin 12.3 g/dL (11.5-15.4); Immature Granulocytes % 0.7 % (0-4); Lymphocytes # 1.2 K/mcL (0.6-4.6); Lymphocytes % 11.1 %; Mean Corpuscular HGB Conc 29.5 g/dL (31.6-35.5); Mean Corpuscular Hemoglobin 26.7 pg (28.0-33.3); Mean Corpuscular Volume 90.7 fL (83.0-100.0); Mean Platelet Volume 9.4 fL (9.4-12.4); Monocytes # 0.9 K/mcL (0.0-1.3); Monocytes % 8.6 %; Neutrophils # 8.4 K/mcL (1.6-8.9); Platelet Count 257 K/mcL (140-400); Red Cell Distribution Width 18.3 % (11.5-14.5); Segmented Neutrophils % 78.9 %; White Blood Count 10.6 K/mcL (4.3-11.1)
[2021-01-22 23:06] LABS: INR 1.3; Prothrombin Time 14.3 Seconds (9.4-12.1)
[2021-01-22 23:32] LABS: Troponin I 0.04 ng/mL (< 0.04)
[2021-01-22 23:33] LABS: BUN/Creatinine Ratio 30 (6-26); Blood Urea Nitrogen 23 mg/dL (8-23); Carbon Dioxide 34 mEq/L (23-29); Chloride 93 mEq/L (98-107); Glucose 548 mg/dL (70-105); Osmolality,Calculated 305 (280-300); Potassium 4.5 mEq/L (3.5-5.1); Sodium 133 mEq/L (136-145); eGFR For African Americans > 60 (> 60); eGFR For Non-African Americans > 60 (> 60)
[2021-01-23] MEDS ORDERED: Insulin Human Regular 10 UNIT in 0.9 % Sodium Chloride 10 ML IV ONE (00:22)
[2021-01-23] MEDS: DilTIAZem 50 MG/50 ML IV.SOLN IVC SCH ×2 (00:51→10:13)
[2021-01-23] MEDS ORDERED: Isovue-370 500 ML BOTTLE IVP ONE (02:03)
[2021-01-23 03:44] LABS: Adenovirus Not Detected (Not Detect); Coronavirus 229E Not Detected (Not Detect); Coronavirus HKU1 Not Detected (Not Detect); Coronavirus NL63 Not Detected (Not Detect); Coronavirus OC43 Not Detected (Not Detect); Human Metapneumovirus Not Detected (Not Detect); Human Rhinovirus/Enterovirus Not Detected (Not Detect); Influenza A Subtype 2009 H1 Not Detected (Not Detect); Influenza B Not Detected (Not Detect); SARS-CoV-2 Not Detected (Not Detect)
[2021-01-23 03:45] LABS: Bordetella Pertussis Not Detected (Not Detect); Chlamydophila pneumoniae Not Detected (Not Detect); Mycoplasma pneumoniae Not Detected (Not Detect); Parainfluenza Virus 1 Not Detected (Not Detect); Parainfluenza Virus 2 Not Detected (Not Detect); Parainfluenza Virus 3 Not Detected (Not Detect); Parainfluenza Virus 4 Not Detected (Not Detect); Respiratory Syncytial Virus Not Detected (Not Detect)
[2021-01-23] MEDS ORDERED: levoFLOXacin 750 MG/150 ML 750 MG/150 ML BAG IVPB ONE (03:54)
[2021-01-23] MEDS ORDERED: *HR* Heparin 5,000 UNIT/ML VIAL IVP ONE (03:54)
[2021-01-23] MEDS ORDERED: *HR* Heparin 5,000 UNIT/ML VIAL IVP PRN ×2 (03:54)
[2021-01-23] MEDS ORDERED: Heparin 25,000UNIT/250ML 1/2NS 25,000 UNIT/250 ML IV.SOLN IVC SCH (04:00)
[2021-01-23] MEDS ORDERED: Furosemide 40 MG TABLET PO PRN (04:49)
[2021-01-23] MEDS ORDERED: Ondansetron 4 MG/2 ML VIAL IVP PRN (04:57)
[2021-01-23] MEDS ORDERED: Acetaminophen 325 MG TABLET PO PRN (04:57)
[2021-01-23] MEDS ORDERED: Naloxone 0.4 MG/ML INJ IVP PRN (04:57)
[2021-01-23] MEDS ORDERED: *HR* Dextrose 50 % in Water (Syg) 50 ML SYRINGE IVP PRN (05:08)
[2021-01-23] MEDS ORDERED: D5% in Water 1,000 ML IVC PRN (05:08)
[2021-01-23] MEDS ORDERED: Dextrose Gel 15 GM/37.5 ML TUBE PO PRN ×2 (05:08)
[2021-01-23] MEDS ORDERED: Albuterol 2.5 MG/3 ML NEBULIZER IH PRN (05:25)
[2021-01-23] MEDS ORDERED: Insulin LISPRO 300 UNITS/3 ML VIAL SUBQ SCH (07:30)
[2021-01-23] MEDS: Budesonide/Formoterol 160/4.5 1 PUFF INH IH SCH (07:38)
[2021-01-23] MEDS ORDERED: Insulin LISPRO 300 UNITS/3 ML VIAL SUBQ ONE (07:56)
[2021-01-23] MEDS: Multivit/Ca/Min/Fe/FA 1 TAB TABLET PO SCH (08:02)
[2021-01-23] MEDS: Cholecalciferol (D-3) 1,000 UNIT (25MCG) TABLET PO SCH (08:02)
[2021-01-23] MEDS: Spironolactone 25 MG TABLET PO SCH (08:02)
[2021-01-23] MEDS: Aspirin Enteric Coated 81 MG Tablet PO SCH (08:02)
[2021-01-23] MEDS: predniSONE 20 MG TABLET PO SCH (08:02)
[2021-01-23] MEDS: *HR* Enoxaparin 120 MG/0.8 ML SYRINGE SQ SCH ×2 (08:02→21:51)
[2021-01-23] MEDS: PARoxetine 20 MG TABLET PO SCH (08:19)
[2021-01-23] MEDS: Insulin DETEMIR 100 UNIT/ML X5UNITS SUBQ SCH ×2 (08:19→21:52)
[2021-01-23] MEDS: ALPRAZolam 1 MG TABLET PO PRN (09:43)
[2021-01-23] MEDS: Insulin LISPRO 300 UNITS/3 ML VIAL SUBQ SCH ×3 (13:32→21:52)
[2021-01-23] MEDS: Levalbuterol Neb 1.25 MG/3 ML IH SCH ×2 (15:38→20:22)
[2021-01-23] MEDS ORDERED: Warfarin perPT PO PRN (18:00)
[2021-01-23] MEDS ORDERED: *HR* Warfarin 7.5 MG TABLET PO ONE (18:00)
[2021-01-23] MEDS ORDERED: Insulin DETEMIR 100 UNIT/ML X5UNITS SUBQ SCH (21:00)
[2021-01-23] MEDS ORDERED: *HR* LORazepam 2 MG/ML VIAL IVP ONE (21:57)
[2021-01-24] MEDS ORDERED: Levalbuterol Neb 1.25 MG/3 ML IH ONE (01:21)
[2021-01-24] MEDS ORDERED: Furosemide 40 MG/4 ML VIAL IVP ONE (01:22)
[2021-01-24] MEDS ORDERED: methylPREDNISolone 125 MG/2 ML VIAL IVP ONE (01:23)
[2021-01-24 01:40] LABS: ABG Base Excess 2 mEq/L (-2 to 3); ABG HCO3 36 mEq/L (21-27); ABG Oxygen Saturation 92 % (95-98); ABG PCO2 105 mmHg (35-45); ABG PH 7.14 pH Units (7.32-7.45); ABG PO2 89 mmHg (85-104); ABG TCO2 39 mEq/L (20-26)
[2021-01-24 02:41] LABS: Basophils % 0.2 %; Hematocrit 44.5 % (35.3-44.9); Hemoglobin 13.1 g/dL (11.5-15.4); Immature Granulocytes % 0.8 % (0-4); Lymphocytes # 0.6 K/mcL (0.6-4.6); Lymphocytes % 4.2 %; Mean Corpuscular HGB Conc 29.4 g/dL (31.6-35.5); Mean Corpuscular Hemoglobin 26.6 pg (28.0-33.3); Mean Corpuscular Volume 90.4 fL (83.0-100.0); Mean Platelet Volume 9.9 fL (9.4-12.4); Monocytes % 7.1 %; Neutrophils # 12.4 K/mcL (1.6-8.9); Platelet Count 329 K/mcL (140-400); Red Blood Count 4.92 M/mcL (3.82-4.97); Red Cell Distribution Width 17.8 % (11.5-14.5); Segmented Neutrophils % 87.7 %; White Blood Count 14.2 K/mcL (4.3-11.1)
[2021-01-24 02:53] LABS: INR 1.3; Prothrombin Time 14.3 Seconds (9.4-12.1)
[2021-01-24 02:57] LABS: ABG Base Excess 3 mEq/L (-2 to 3); ABG HCO3 32 mEq/L (21-27); ABG Oxygen Saturation 96 % (95-98); ABG PCO2 67 mmHg (35-45); ABG PH 7.29 pH Units (7.32-7.45); ABG PO2 92 mmHg (85-104); ABG TCO2 34 mEq/L (20-26); Blood Gas VT 530 cc
[2021-01-24 03:00] LABS: Alanine Aminotransferase 112 Units/L (7-52); Albumin 3.7 g/dL (3.5-5.7); Alkaline Phosphatase 142 Units/L (34-104); Aspartate Amino Transferase 161 Units/L (13-39); BUN/Creatinine Ratio 41 (6-26); Bilirubin,Total 0.6 mg/dL (0.3-1.0); Blood Urea Nitrogen 43 mg/dL (8-23); Carbon Dioxide 29 mEq/L (23-29); Chloride 94 mEq/L (98-107); Globulin 3.6 g/dL (2.4-3.5); Glucose 399 mg/dL (70-105); Osmolality,Calculated 302 (280-300); Sodium 132 mEq/L (136-145); Total Protein 7.3 g/dL (6.4-8.9); eGFR For African Americans > 60 (> 60); eGFR For Non-African Americans 52 (> 60)
[2021-01-24 03:02] LABS: Phosphorous 6.7 mg/dL (2.7-4.5)
[2021-01-24] MEDS: Levalbuterol Neb 1.25 MG/3 ML IH SCH ×4 (03:26→21:27)
[2021-01-24 06:51] LABS: ABG Base Excess 3 mEq/L (-2 to 3); ABG HCO3 30 mEq/L (21-27); ABG Oxygen Saturation 96 % (95-98); ABG PCO2 56 mmHg (35-45); ABG PH 7.34 pH Units (7.32-7.45); ABG PO2 88 mmHg (85-104); ABG TCO2 32 mEq/L (20-26); Blood Gas VT 530 cc
[2021-01-24] MEDS: Budesonide/Formoterol 160/4.5 1 PUFF INH IH SCH (07:33)
[2021-01-24] MEDS: *HR* Enoxaparin 120 MG/0.8 ML SYRINGE SQ SCH ×2 (08:20→20:18)
[2021-01-24] MEDS: Cholecalciferol (D-3) 1,000 UNIT (25MCG) TABLET PO SCH (08:21)
[2021-01-24] MEDS: Spironolactone 25 MG TABLET PO SCH (08:21)
[2021-01-24] MEDS: PARoxetine 20 MG TABLET PO SCH (08:21)
[2021-01-24] MEDS: Aspirin Enteric Coated 81 MG Tablet PO SCH (08:21)
[2021-01-24] MEDS: predniSONE 20 MG TABLET PO SCH (08:21)
[2021-01-24] MEDS: Insulin LISPRO 300 UNITS/3 ML VIAL SUBQ SCH ×4 (08:21→20:18)
[2021-01-24] MEDS: Multivit/Ca/Min/Fe/FA 1 TAB TABLET PO SCH (08:21)
[2021-01-24] MEDS: Insulin DETEMIR 100 UNIT/ML X5UNITS SUBQ SCH ×2 (08:27→20:17)
[2021-01-24] MEDS ORDERED: levoFLOXacin 750 MG/150 ML 750 MG/150 ML BAG IVPB SCH (09:00)
[2021-01-24] MEDS ORDERED: levoFLOXacin 750 MG TABLET PO SCH (09:00)
[2021-01-24] MEDS ORDERED: Ipratropium/Albuterol Neb 3 ML IH PRN (09:32)
[2021-01-24 17:11] LABS: ABG Base Excess 4 mEq/L (-2 to 3); ABG HCO3 33 mEq/L (21-27); ABG Oxygen Saturation 97 % (95-98); ABG PCO2 68 mmHg (35-45); ABG PH 7.29 pH Units (7.32-7.45); ABG PO2 107 mmHg (85-104); ABG TCO2 35 mEq/L (20-26)
[2021-01-24] MEDS ORDERED: *HR* Warfarin 7.5 MG TABLET PO ONE (18:00)
[2021-01-24] MEDS ORDERED: Ketorolac 30 MG/ML VIAL IVP ONE (19:44)
[2021-01-24] MEDS ORDERED: *HR* LORazepam 2 MG/ML VIAL IVP ONE (19:44)
[2021-01-25 00:48] LABS: ABG Base Excess 6 mEq/L (-2 to 3); ABG HCO3 34 mEq/L (21-27); ABG Oxygen Saturation 99 % (95-98); ABG PCO2 63 mmHg (35-45); ABG PH 7.34 pH Units (7.32-7.45); ABG PO2 130 mmHg (85-104); ABG TCO2 36 mEq/L (20-26); Blood Gas VT 500 cc
[2021-01-25] MEDS: ALPRAZolam 1 MG TABLET PO PRN (01:24)
[2021-01-25] MEDS ORDERED: *HR* LORazepam 2 MG/ML VIAL IVP ONE ×3 (03:09→09:52)
[2021-01-25] MEDS ORDERED: *HR* LORazepam 2 MG/ML VIAL ONE (03:10)
[2021-01-25] MEDS ORDERED: Morphine Sulfate 2 MG/ML SYRINGE IVP ONE ×2 (03:40→09:52)
[2021-01-25] MEDS ORDERED: DilTIAZem 50 MG/50 ML IV.SOLN IVC SCH (04:15)
[2021-01-25] MEDS: Levalbuterol Neb 1.25 MG/3 ML IH SCH ×4 (04:20→20:26)
[2021-01-25 06:08] LABS: ABG Base Excess 3 mEq/L (-2 to 3); ABG HCO3 35 mEq/L (21-27); ABG Oxygen Saturation 88 % (95-98); ABG PCO2 92 mmHg (35-45); ABG PH 7.19 pH Units (7.32-7.45); ABG PO2 72 mmHg (85-104); ABG TCO2 38 mEq/L (20-26); Blood Gas Modality avaps; Blood Gas VT 500 cc
[2021-01-25 07:17] LABS: ABG Base Excess 3 mEq/L (-2 to 3); ABG HCO3 35 mEq/L (21-27); ABG Oxygen Saturation 89 % (95-98); ABG PCO2 91 mmHg (35-45); ABG PO2 72 mmHg (85-104); ABG TCO2 38 mEq/L (20-26); Blood Gas VT 600 cc
[2021-01-25 08:16] LABS: Basophils # 0.1 K/mcL (0.0-0.2); Basophils % 0.3 %; Eosinophils % 0.2 %; Hematocrit 43.4 % (35.3-44.9); Hemoglobin 13.1 g/dL (11.5-15.4); Immature Granulocytes % 1.2 % (0-4); Lymphocytes # 0.8 K/mcL (0.6-4.6); Lymphocytes % 4.9 %; Mean Corpuscular HGB Conc 30.2 g/dL (31.6-35.5); Mean Corpuscular Hemoglobin 27.5 pg (28.0-33.3); Mean Corpuscular Volume 91.2 fL (83.0-100.0); Mean Platelet Volume 9.6 fL (9.4-12.4); Monocytes # 1.7 K/mcL (0.0-1.3); Monocytes % 9.7 %; Neutrophils # 14.2 K/mcL (1.6-8.9); Nucleated Red Blood Cells 0.2 /100 WBC (0); Platelet Count 321 K/mcL (140-400); Red Blood Count 4.76 M/mcL (3.82-4.97); Red Cell Distribution Width 17.8 % (11.5-14.5); Segmented Neutrophils % 83.7 %
[2021-01-25 08:26] LABS: INR 2.6; Prothrombin Time 28.4 Seconds (9.4-12.1)
[2021-01-25] MEDS ORDERED: levoFLOXacin 750 MG/150 ML 750 MG/150 ML BAG IVPB SCH (09:00)
[2021-01-25] MEDS ORDERED: Furosemide 40 MG TABLET PO SCH (09:00)
[2021-01-25] MEDS: Insulin LISPRO 300 UNITS/3 ML VIAL SUBQ SCH ×4 (09:16→23:54)
[2021-01-25] MEDS ORDERED: 0.9 % Sodium Chloride 500 ML ONE (09:38)
[2021-01-25] MEDS ORDERED: FentaNYL (PF) 1,000 MCG/100 ML IV.SOLN IVC SCH (09:45)
[2021-01-25] MEDS ORDERED: Ipratropium/Albuterol Neb 3 ML IH PRN (09:52)
[2021-01-25] MEDS ORDERED: Acetaminophen 325 MG TABLET PO PRN (09:52)
[2021-01-25] MEDS ORDERED: *HR* Dextrose 50 % in Water (Syg) 50 ML SYRINGE IVP PRN (09:52)
[2021-01-25] MEDS ORDERED: Naloxone 0.4 MG/ML INJ IVP PRN (09:52)
[2021-01-25] MEDS ORDERED: ALPRAZolam 1 MG TABLET PO PRN (09:52)
[2021-01-25] MEDS ORDERED: D5% in Water 1,000 ML IVC PRN (09:52)
[2021-01-25] MEDS ORDERED: Dextrose Gel 15 GM/37.5 ML TUBE PO PRN ×2 (09:52)
[2021-01-25] MEDS ORDERED: Ondansetron 4 MG/2 ML VIAL IVP PRN (09:52)
[2021-01-25] MEDS: FentaNYL (PF) 1,000 MCG/100 ML IV.SOLN IVC SCH ×3 (10:00→23:36)
[2021-01-25] MEDS: Phenylephrine 20 MG in 0.9 % Sodium Chloride 250 ML IVC SCH ×2 (10:00→15:15)
[2021-01-25] MEDS ORDERED: Phenylephrine 20 MG in 0.9 % Sodium Chloride 250 ML IVC SCH (10:00)
[2021-01-25] MEDS ORDERED: 0.9 % Sodium Chloride 500 ML IV ONE (10:23)
[2021-01-25 11:07] LABS: Basophils % 0.2 %; Hematocrit 39.3 % (35.3-44.9); Immature Granulocytes % 0.9 % (0-4); Lymphocytes # 0.6 K/mcL (0.6-4.6); Mean Corpuscular HGB Conc 29.3 g/dL (31.6-35.5); Mean Corpuscular Hemoglobin 26.9 pg (28.0-33.3); Mean Corpuscular Volume 91.8 fL (83.0-100.0); Monocytes # 1.2 K/mcL (0.0-1.3); Monocytes % 8.2 %; Neutrophils # 12.4 K/mcL (1.6-8.9); Nucleated Red Blood Cells 0.2 /100 WBC (0); Platelet Count 310 K/mcL (140-400); Red Blood Count 4.28 M/mcL (3.82-4.97); Red Cell Distribution Width 17.8 % (11.5-14.5); Segmented Neutrophils % 86.7 %; White Blood Count 14.3 K/mcL (4.3-11.1)
[2021-01-25 11:13] LABS: Hemoglobin 11.5 g/dL (11.5-15.4)
[2021-01-25] MEDS ORDERED: Insulin LISPRO 300 UNITS/3 ML VIAL SUBQ SCH ×2 (11:30→21:00)
[2021-01-25 11:43] LABS: Calcium 9.3 mg/dL (8.6-10.3); Potassium 4.8 mEq/L (3.5-5.1)
[2021-01-25] MEDS: DilTIAZem 50 MG/50 ML IV.SOLN IVC SCH ×2 (12:18→19:28)
[2021-01-25] MEDS: Acetylcysteine 10% 2 ML INHSOL IH SCH ×2 (12:31→13:26)
[2021-01-25] MEDS: Budesonide/Formoterol 160/4.5 1 PUFF INH IH SCH (12:32)
[2021-01-25 12:59] LABS: ABG Base Excess 4 mEq/L (-2 to 3); ABG HCO3 32 mEq/L (21-27); ABG Oxygen Saturation 99 % (95-98); ABG PCO2 64 mmHg (35-45); ABG PH 7.31 pH Units (7.32-7.45); ABG PO2 154 mmHg (85-104); ABG TCO2 34 mEq/L (20-26); Blood Gas Modality ASSIST CONTROL; Blood Gas VT 400 cc
[2021-01-25] MEDS ORDERED: Artificial Tears SOLN 15 ML BOTTLE BOTH EYES PRN (13:20)
[2021-01-25] MEDS ORDERED: Pantoprazole 40 MG VIAL IVP ONE (13:22)
[2021-01-25] MEDS ORDERED: *HR* Midazolam HCl 5 MG/5 ML VIAL IVP ONE (14:17)
[2021-01-25] MEDS ORDERED: *HR* Propofol 200 MG/20 ML VIAL IVP ONE (14:17)
[2021-01-25] MEDS ORDERED: *HR* Midazolam HCl 2 MG/2 ML VIAL IVP ONE (14:17)
[2021-01-25 14:57] LABS: Source of Body Fluid LLL BAL
[2021-01-25] MEDS: Artificial Tears SOLN 15 ML BOTTLE BOTH EYES SCH ×3 (16:25→23:43)
[2021-01-25] MEDS: Pantoprazole 40 MG VIAL IVP SCH (16:26)
[2021-01-25] MEDS: Norepinephrine 4 MG/254 ML IV.SOLN IVC SCH (16:49)
[2021-01-25 19:38] LABS: Appearance of Body Fluid Cloudy (Clear); Volume of Body Fluid 15 mL
[2021-01-25] MEDS: Insulin DETEMIR 100 UNIT/ML X5UNITS SUBQ SCH (19:54)
[2021-01-25] MEDS: Chlorhexidine Rinse 15 ML MOUTHWASH MM SCH (19:54)
[2021-01-25] MEDS: Hydrocortisone Sodium Succ 100 MG/2 ML VIAL IVP SCH ×2 (20:01→23:47)
[2021-01-25] MEDS ORDERED: *HR* Enoxaparin 120 MG/0.8 ML SYRINGE SQ SCH (21:00)
[2021-01-26] MEDS: Levalbuterol Neb 1.25 MG/3 ML IH SCH ×4 (03:58→21:15)
[2021-01-26 04:26] LABS: ABG Base Excess 4 mEq/L (-2 to 3); ABG HCO3 30 mEq/L (21-27); ABG Oxygen Saturation 93 % (95-98); ABG PCO2 49 mmHg (35-45); ABG PO2 66 mmHg (85-104); ABG TCO2 32 mEq/L (20-26); Blood Gas VT 400 cc
[2021-01-26] MEDS: Phenylephrine 20 MG in 0.9 % Sodium Chloride 250 ML IVC SCH (04:28)
[2021-01-26] MEDS: DilTIAZem 50 MG/50 ML IV.SOLN IVC SCH (04:28)
[2021-01-26] MEDS: Insulin LISPRO 300 UNITS/3 ML VIAL SUBQ SCH ×5 (04:29→20:12)
[2021-01-26] MEDS: Artificial Tears SOLN 15 ML BOTTLE BOTH EYES SCH ×6 (04:29→23:37)
[2021-01-26 04:40] LABS: Basophils % 0.2 %; Eosinophils % 0.1 %; Hematocrit 35.5 % (35.3-44.9); Hemoglobin 10.6 g/dL (11.5-15.4); Immature Granulocytes % 0.9 % (0-4); Lymphocytes # 0.9 K/mcL (0.6-4.6); Mean Corpuscular HGB Conc 29.9 g/dL (31.6-35.5); Mean Corpuscular Hemoglobin 26.6 pg (28.0-33.3); Mean Platelet Volume 9.6 fL (9.4-12.4); Monocytes # 1.2 K/mcL (0.0-1.3); Monocytes % 8.2 %; Neutrophils # 12.8 K/mcL (1.6-8.9); Nucleated Red Blood Cells 0.1 /100 WBC (0); Platelet Count 269 K/mcL (140-400); Red Blood Count 3.99 M/mcL (3.82-4.97); Red Cell Distribution Width 18.2 % (11.5-14.5); Segmented Neutrophils % 84.6 %; White Blood Count 15.2 K/mcL (4.3-11.1)
[2021-01-26 04:54] LABS: INR 1.3; Magnesium 1.9 mg/dL (1.6-2.6); Prothrombin Time 14.3 Seconds (9.4-12.1)
[2021-01-26 04:55] LABS: Alanine Aminotransferase 77 Units/L (7-52); Alkaline Phosphatase 98 Units/L (34-104); Aspartate Amino Transferase 41 Units/L (13-39); BUN/Creatinine Ratio 55 (6-26); Bilirubin,Total 0.5 mg/dL (0.3-1.0); Blood Urea Nitrogen 44 mg/dL (8-23); Calcium 9.3 mg/dL (8.6-10.3); Carbon Dioxide 34 mEq/L (23-29); Chloride 100 mEq/L (98-107); Globulin 3.1 g/dL (2.4-3.5); Glucose 149 mg/dL (70-105); Osmolality,Calculated 300 (280-300); Potassium 4.3 mEq/L (3.5-5.1); Sodium 138 mEq/L (136-145); Total Protein 6.1 g/dL (6.4-8.9); eGFR For African Americans > 60 (> 60); eGFR For Non-African Americans > 60 (> 60)
[2021-01-26] MEDS: Hydrocortisone Sodium Succ 100 MG/2 ML VIAL IVP SCH ×2 (06:15→11:23)
[2021-01-26] MEDS: FentaNYL (PF) 1,000 MCG/100 ML IV.SOLN IVC SCH ×4 (06:21→20:37)
[2021-01-26] MEDS: Budesonide/Formoterol 160/4.5 1 PUFF INH IH SCH (07:28)
[2021-01-26] MEDS: Norepinephrine 4 MG/254 ML IV.SOLN IVC SCH ×2 (08:28→11:28)
[2021-01-26] MEDS: Pantoprazole 40 MG VIAL IVP SCH (08:35)
[2021-01-26] MEDS: Chlorhexidine Rinse 15 ML MOUTHWASH MM SCH ×2 (08:35→20:12)
[2021-01-26] MEDS: Nystatin POWDER 30 GM BOTTLE TP SCH ×2 (08:36→20:13)
[2021-01-26] MEDS: Cholecalciferol (D-3) 1,000 UNIT (25MCG) TABLET PO SCH (08:36)
[2021-01-26] MEDS: Nystatin Cream 15 GM TUBE TP SCH ×2 (08:36→20:13)
[2021-01-26] MEDS: Insulin DETEMIR 100 UNIT/ML X5UNITS SUBQ SCH ×2 (08:37→20:13)
[2021-01-26] MEDS ORDERED: levoFLOXacin 750 MG/150 ML 750 MG/150 ML BAG IVPB SCH (09:00)
[2021-01-26] MEDS ORDERED: Furosemide 40 MG TABLET PO SCH (09:00)
[2021-01-26] MEDS ORDERED: Aspirin Enteric Coated 81 MG Tablet PO SCH (09:00)
[2021-01-26] MEDS ORDERED: predniSONE 20 MG TABLET PO SCH (09:00)
[2021-01-26] MEDS ORDERED: PARoxetine 20 MG TABLET PO SCH (09:00)
[2021-01-26] MEDS ORDERED: Multivit/Ca/Min/Fe/FA 1 TAB TABLET PO SCH (09:00)
[2021-01-26] MEDS ORDERED: Spironolactone 25 MG TABLET PO SCH (09:00)
[2021-01-26] MEDS: Multivitamin Liquid 15 ML UDC GTUBE SCH (09:20)
[2021-01-26] MEDS ORDERED: Vancomycin 2,000 MG/520 ML IV.SOLN IVPB ONE (10:00)
[2021-01-26] MEDS: Aztreonam 2,000 MG in Water for inj. (sterile) 20 ML IVP SCH ×3 (11:24→23:37)
[2021-01-26] MEDS ORDERED: Vancomycin 1,500 MG/265 ML IV.SOLN IVPB SCH (22:00)
[2021-01-26] MEDS ORDERED: Atropine 1% Opth Drops 100 DROP/5 ML BOTTLE SL PRN (23:10)
[2021-01-26] MEDS: Scopolamine Patch 1.5 MG PATCH.TD72 TD SCH (23:37)
[2021-01-27] MEDS: Insulin LISPRO 300 UNITS/3 ML VIAL SUBQ SCH ×7 (00:03→23:32)
[2021-01-27] MEDS: FentaNYL (PF) 1,000 MCG/100 ML IV.SOLN IVC SCH ×4 (03:34→23:54)
[2021-01-27 04:04] LABS: Basophils % 0.3 %; Eosinophils # 0.1 K/mcL (0.0-0.6); Eosinophils % 0.4 %; Hematocrit 37.2 % (35.3-44.9); Immature Granulocytes % 1.4 % (0-4); Lymphocytes # 0.9 K/mcL (0.6-4.6); Lymphocytes % 7.1 %; Mean Corpuscular HGB Conc 29.6 g/dL (31.6-35.5); Mean Corpuscular Hemoglobin 26.7 pg (28.0-33.3); Mean Corpuscular Volume 90.3 fL (83.0-100.0); Mean Platelet Volume 9.5 fL (9.4-12.4); Monocytes % 7.4 %; Neutrophils # 11.1 K/mcL (1.6-8.9); Nucleated Red Blood Cells 0.2 /100 WBC (0); Platelet Count 225 K/mcL (140-400); Red Blood Count 4.12 M/mcL (3.82-4.97); Red Cell Distribution Width 18.4 % (11.5-14.5); Segmented Neutrophils % 83.4 %; White Blood Count 13.3 K/mcL (4.3-11.1)
[2021-01-27 04:10] LABS: VBG Ionized Calcium 1.22 mmol/L (1.15-1.35)
[2021-01-27 04:11] LABS: INR 1.3; Prothrombin Time 14.8 Seconds (9.4-12.1)
[2021-01-27] MEDS: Artificial Tears SOLN 15 ML BOTTLE BOTH EYES SCH ×6 (04:12→23:32)
[2021-01-27 04:27] LABS: Alanine Aminotransferase 66 Units/L (7-52); Albumin 2.8 g/dL (3.5-5.7); Albumin/Globulin Ratio 0.8 (1.1-2.2); Alkaline Phosphatase 85 Units/L (34-104); Aspartate Amino Transferase 26 Units/L (13-39); BUN/Creatinine Ratio 48 (6-26); Bilirubin,Total 0.4 mg/dL (0.3-1.0); Blood Urea Nitrogen 40 mg/dL (8-23); Calcium 8.7 mg/dL (8.6-10.3); Carbon Dioxide 32 mEq/L (23-29); Chloride 102 mEq/L (98-107); Globulin 3.3 g/dL (2.4-3.5); Glucose 180 mg/dL (70-105); Osmolality,Calculated 300 (280-300); Phosphorous 3.1 mg/dL (2.7-4.5); Potassium 4.5 mEq/L (3.5-5.1); Sodium 138 mEq/L (136-145); Total Protein 6.1 g/dL (6.4-8.9); eGFR For African Americans > 60 (> 60); eGFR For Non-African Americans > 60 (> 60)
[2021-01-27] MEDS: Levalbuterol Neb 1.25 MG/3 ML IH SCH ×4 (04:50→21:57)
[2021-01-27 04:56] LABS: ABG Base Excess 2 mEq/L (-2 to 3); ABG HCO3 28 mEq/L (21-27); ABG Oxygen Saturation 90 % (95-98); ABG PCO2 45 mmHg (35-45); ABG PH 7.39 pH Units (7.32-7.45); ABG PO2 59 mmHg (85-104); ABG TCO2 29 mEq/L (20-26); Blood Gas Modality ASSIST CONTROL; Blood Gas VT 400 cc
[2021-01-27] MEDS ORDERED: Aztreonam 2,000 MG in Water for inj. (sterile) 20 ML IVP SCH (06:00)
[2021-01-27] MEDS: Aztreonam 2,000 MG in Water for inj. (sterile) 20 ML IVP SCH (06:28)
[2021-01-27] MEDS: Budesonide/Formoterol 160/4.5 1 PUFF INH IH SCH (07:36)
[2021-01-27] MEDS: Norepinephrine 4 MG/254 ML IV.SOLN IVC SCH ×2 (08:37→11:16)
[2021-01-27] MEDS: Pantoprazole 40 MG VIAL IVP SCH (08:47)
[2021-01-27] MEDS: Chlorhexidine Rinse 15 ML MOUTHWASH MM SCH ×2 (08:47→19:44)
[2021-01-27] MEDS: Multivitamin Liquid 15 ML UDC GTUBE SCH (08:47)
[2021-01-27] MEDS: Nystatin Cream 15 GM TUBE TP SCH ×2 (08:48→19:46)
[2021-01-27] MEDS: Nystatin POWDER 30 GM BOTTLE TP SCH ×2 (08:49→19:46)
[2021-01-27] MEDS: Insulin DETEMIR 100 UNIT/ML X5UNITS SUBQ SCH ×2 (08:53→19:45)
[2021-01-27] MEDS ORDERED: Lidocaine -MPF 1% 5 ML AMPUL INFILT ONE (11:30)
[2021-01-27] MEDS: Vancomycin 1,250 MG/262.5 ML IV.SOLN IVPB SCH (13:21)
[2021-01-27] MEDS ORDERED: *HR* Heparin 5,000 UNIT/ML VIAL IVP PRN ×2 (14:17)
[2021-01-27] MEDS: MethylPREDNISolone 40 MG/ML VIAL IVP SCH (17:24)
[2021-01-27] MEDS: Heparin 25,000UNIT/250ML 1/2NS 25,000 UNIT/250 ML IV.SOLN IVC SCH (17:50)
[2021-01-27 20:06] LABS: Hematocrit 35.1 % (35.3-44.9); Hemoglobin 10.6 g/dL (11.5-15.4); Mean Corpuscular HGB Conc 30.2 g/dL (31.6-35.5); Mean Corpuscular Hemoglobin 27.1 pg (28.0-33.3); Mean Corpuscular Volume 89.8 fL (83.0-100.0); Platelet Count 243 K/mcL (140-400); Red Blood Count 3.91 M/mcL (3.82-4.97); Red Cell Distribution Width 18.4 % (11.5-14.5)
[2021-01-28 00:06] LABS: Heparin anti-factor XA UFH 0.39 IU/mL (0.30-0.70); INR 1.5; Prothrombin Time 16.5 Seconds (9.4-12.1)
[2021-01-28] MEDS: Vancomycin 1,250 MG/262.5 ML IV.SOLN IVPB SCH ×2 (01:08→12:00)
[2021-01-28] MEDS: Levalbuterol Neb 1.25 MG/3 ML IH SCH ×4 (03:23→20:48)
[2021-01-28] MEDS: Artificial Tears SOLN 15 ML BOTTLE BOTH EYES SCH ×5 (03:53→19:36)
[2021-01-28] MEDS: Insulin LISPRO 300 UNITS/3 ML VIAL SUBQ SCH ×5 (03:53→20:45)
[2021-01-28 04:02] LABS: Basophils # 0.1 K/mcL (0.0-0.2); Basophils % 0.4 %; Eosinophils % 0.1 %; Hematocrit 33.3 % (35.3-44.9); Hemoglobin 10.2 g/dL (11.5-15.4); Immature Granulocytes % 2.9 % (0-4); Lymphocytes # 1.1 K/mcL (0.6-4.6); Lymphocytes % 6.6 %; Mean Corpuscular HGB Conc 30.6 g/dL (31.6-35.5); Mean Corpuscular Hemoglobin 27.2 pg (28.0-33.3); Mean Corpuscular Volume 88.8 fL (83.0-100.0); Mean Platelet Volume 10.3 fL (9.4-12.4); Monocytes # 0.5 K/mcL (0.0-1.3); Monocytes % 3.4 %; Nucleated Red Blood Cells 0.3 /100 WBC (0); Platelet Count 248 K/mcL (140-400); Red Blood Count 3.75 M/mcL (3.82-4.97); Red Cell Distribution Width 18.6 % (11.5-14.5); Segmented Neutrophils % 86.6 %
[2021-01-28 04:10] LABS: Neutrophils # 13.9 K/mcL (1.6-8.9)
[2021-01-28 04:24] LABS: Alanine Aminotransferase 67 Units/L (7-52); Albumin 2.4 g/dL (3.5-5.7); Albumin/Globulin Ratio 0.8 (1.1-2.2); Alkaline Phosphatase 74 Units/L (34-104); Aspartate Amino Transferase 33 Units/L (13-39); BUN/Creatinine Ratio 51 (6-26); Bilirubin,Total 0.4 mg/dL (0.3-1.0); Blood Urea Nitrogen 34 mg/dL (8-23); Calcium 8.2 mg/dL (8.6-10.3); Carbon Dioxide 28 mEq/L (23-29); Chloride 103 mEq/L (98-107); Globulin 3.2 g/dL (2.4-3.5); Glucose 197 mg/dL (70-105); Osmolality,Calculated 299 (280-300); Phosphorous 3.8 mg/dL (2.7-4.5); Potassium 4.7 mEq/L (3.5-5.1); Sodium 138 mEq/L (136-145); Total Protein 5.6 g/dL (6.4-8.9); eGFR For African Americans > 60 (> 60); eGFR For Non-African Americans > 60 (> 60)
[2021-01-28 04:33] LABS: ABG Base Excess 3 mEq/L (-2 to 3); ABG HCO3 29 mEq/L (21-27); ABG Oxygen Saturation 90 % (95-98); ABG PCO2 51 mmHg (35-45); ABG PH 7.36 pH Units (7.32-7.45); ABG PO2 62 mmHg (85-104); ABG TCO2 31 mEq/L (20-26); Blood Gas Modality ASSIST CONTROL; Blood Gas VT 400 cc
[2021-01-28 05:16] LABS: Anisocytosis 1+ (Not Present); Platelet Estimate Normal (Normal)
[2021-01-28] MEDS: MethylPREDNISolone 40 MG/ML VIAL IVP SCH ×2 (05:19→17:15)
[2021-01-28] MEDS: FentaNYL (PF) 1,000 MCG/100 ML IV.SOLN IVC SCH ×3 (05:24→19:35)
[2021-01-28 06:01] LABS: Heparin anti-factor XA UFH 0.36 IU/mL (0.30-0.70); INR 1.4; Prothrombin Time 15.4 Seconds (9.4-12.1)
[2021-01-28] MEDS: Budesonide/Formoterol 160/4.5 1 PUFF INH IH SCH (07:16)
[2021-01-28] MEDS: Pantoprazole 40 MG VIAL IVP SCH (07:23)
[2021-01-28] MEDS: Chlorhexidine Rinse 15 ML MOUTHWASH MM SCH ×2 (07:24→19:35)
[2021-01-28] MEDS: Nystatin Cream 15 GM TUBE TP SCH ×2 (07:24→19:37)
[2021-01-28] MEDS: Insulin DETEMIR 100 UNIT/ML X5UNITS SUBQ SCH ×2 (07:53→20:44)
[2021-01-28] MEDS: Heparin 25,000UNIT/250ML 1/2NS 25,000 UNIT/250 ML IV.SOLN IVC SCH ×3 (07:54→22:57)
[2021-01-28] MEDS: Multivitamin Liquid 15 ML UDC GTUBE SCH (08:00)
[2021-01-28] MEDS: Nystatin POWDER 30 GM BOTTLE TP SCH ×2 (11:24→19:36)
[2021-01-28] MEDS: Aspirin 81 MG TAB.CHEW GTUBE SCH (12:00)
[2021-01-29] MEDS: Artificial Tears SOLN 15 ML BOTTLE BOTH EYES SCH ×7 (00:17→23:58)
[2021-01-29] MEDS: Insulin LISPRO 300 UNITS/3 ML VIAL SUBQ SCH ×6 (00:18→19:44)
[2021-01-29] MEDS: MethylPREDNISolone 40 MG/ML VIAL IVP SCH ×4 (00:18→23:56)
[2021-01-29] MEDS: Vancomycin 1,250 MG/262.5 ML IV.SOLN IVPB SCH ×2 (00:19→12:02)
[2021-01-29] MEDS: FentaNYL (PF) 1,000 MCG/100 ML IV.SOLN IVC SCH ×4 (00:53→23:58)
[2021-01-29] MEDS: Levalbuterol Neb 1.25 MG/3 ML IH SCH ×4 (03:39→19:58)
[2021-01-29 04:34] LABS: INR 1.3; Prothrombin Time 14.4 Seconds (9.4-12.1)
[2021-01-29 04:34] LABS: ABG Base Excess 2 mEq/L (-2 to 3); ABG HCO3 28 mEq/L (21-27); ABG Oxygen Saturation 86 % (95-98); ABG PCO2 49 mmHg (35-45); ABG PH 7.36 pH Units (7.32-7.45); ABG PO2 55 mmHg (85-104); ABG TCO2 29 mEq/L (20-26); Blood Gas Modality ASSIST CONTROL; Blood Gas VT 400 cc
[2021-01-29 04:57] LABS: Alanine Aminotransferase 69 Units/L (7-52); Albumin 2.5 g/dL (3.5-5.7); Albumin/Globulin Ratio 0.8 (1.1-2.2); Alkaline Phosphatase 73 Units/L (34-104); Aspartate Amino Transferase 23 Units/L (13-39); BUN/Creatinine Ratio 65 (6-26); Bilirubin,Total 0.3 mg/dL (0.3-1.0); Blood Urea Nitrogen 46 mg/dL (8-23); Calcium 8.5 mg/dL (8.6-10.3); Carbon Dioxide 28 mEq/L (23-29); Chloride 103 mEq/L (98-107); Globulin 3.3 g/dL (2.4-3.5); Glucose 279 mg/dL (70-105); Magnesium 2.4 mg/dL (1.6-2.6); Osmolality,Calculated 304 (280-300); Phosphorous 3.9 mg/dL (2.7-4.5); Potassium 4.8 mEq/L (3.5-5.1); Sodium 136 mEq/L (136-145); Total Protein 5.8 g/dL (6.4-8.9); eGFR For African Americans > 60 (> 60); eGFR For Non-African Americans > 60 (> 60)
[2021-01-29 05:01] LABS: Basophils # 0.1 K/mcL (0.0-0.2); Basophils % 0.5 %; Hematocrit 34.4 % (35.3-44.9); Hemoglobin 10.3 g/dL (11.5-15.4); Immature Granulocytes % 3.6 % (0-4); Lymphocytes # 1.1 K/mcL (0.6-4.6); Lymphocytes % 6.4 %; Mean Corpuscular HGB Conc 29.9 g/dL (31.6-35.5); Mean Corpuscular Hemoglobin 26.5 pg (28.0-33.3); Mean Corpuscular Volume 88.7 fL (83.0-100.0); Monocytes # 0.6 K/mcL (0.0-1.3); Monocytes % 3.5 %; Neutrophils # 14.4 K/mcL (1.6-8.9); Nucleated Red Blood Cells 0.4 /100 WBC (0); Platelet Count 262 K/mcL (140-400); Red Blood Count 3.88 M/mcL (3.82-4.97); Red Cell Distribution Width 18.4 % (11.5-14.5); White Blood Count 16.7 K/mcL (4.3-11.1)
[2021-01-29] MEDS: Aspirin 81 MG TAB.CHEW GTUBE SCH (07:30)
[2021-01-29] MEDS: Chlorhexidine Rinse 15 ML MOUTHWASH MM SCH ×2 (07:30→19:31)
[2021-01-29] MEDS: Furosemide 20 MG/2 ML VIAL IVP SCH (07:30)
[2021-01-29] MEDS: Nystatin POWDER 30 GM BOTTLE TP SCH ×2 (07:31→19:32)
[2021-01-29] MEDS: Pantoprazole 40 MG VIAL IVP SCH (07:31)
[2021-01-29] MEDS: Nystatin Cream 15 GM TUBE TP SCH ×2 (07:31→19:32)
[2021-01-29] MEDS: Insulin DETEMIR 100 UNIT/ML X5UNITS SUBQ SCH ×2 (07:34→19:44)
[2021-01-29] MEDS: Budesonide/Formoterol 160/4.5 1 PUFF INH IH SCH (08:34)
[2021-01-29] MEDS: Multivitamin Liquid 15 ML UDC GTUBE SCH (10:15)
[2021-01-29] MEDS: Heparin 25,000UNIT/250ML 1/2NS 25,000 UNIT/250 ML IV.SOLN IVC SCH (14:52)
[2021-01-29] MEDS: Scopolamine Patch 1.5 MG PATCH.TD72 TD SCH (23:57)
[2021-01-30] MEDS: Vancomycin 1,250 MG/262.5 ML IV.SOLN IVPB SCH ×2 (00:01→12:08)
[2021-01-30] MEDS: Insulin LISPRO 300 UNITS/3 ML VIAL SUBQ SCH ×6 (00:19→20:00)
[2021-01-30] MEDS: Artificial Tears SOLN 15 ML BOTTLE BOTH EYES SCH ×5 (03:40→20:01)
[2021-01-30] MEDS: Levalbuterol Neb 1.25 MG/3 ML IH SCH ×3 (03:51→16:57)
[2021-01-30 04:04] LABS: ABG Base Excess 2 mEq/L (-2 to 3); ABG HCO3 30 mEq/L (21-27); ABG Oxygen Saturation 91 % (95-98); ABG PCO2 61 mmHg (35-45); ABG PO2 70 mmHg (85-104); ABG TCO2 32 mEq/L (20-26); Blood Gas VT 400 cc
[2021-01-30 04:07] LABS: Basophils # 0.1 K/mcL (0.0-0.2); Basophils % 0.4 %; Hematocrit 35.4 % (35.3-44.9); Hemoglobin 10.7 g/dL (11.5-15.4); Immature Granulocytes % 4.6 % (0-4); Lymphocytes # 0.9 K/mcL (0.6-4.6); Lymphocytes % 5.6 %; Mean Corpuscular HGB Conc 30.2 g/dL (31.6-35.5); Mean Corpuscular Volume 89.4 fL (83.0-100.0); Mean Platelet Volume 9.9 fL (9.4-12.4); Monocytes # 0.9 K/mcL (0.0-1.3); Monocytes % 5.5 %; Neutrophils # 13.2 K/mcL (1.6-8.9); Nucleated Red Blood Cells 0.3 /100 WBC (0); Platelet Count 286 K/mcL (140-400); Red Blood Count 3.96 M/mcL (3.82-4.97); Red Cell Distribution Width 18.2 % (11.5-14.5); Segmented Neutrophils % 83.9 %; White Blood Count 15.8 K/mcL (4.3-11.1)
[2021-01-30 04:15] LABS: Alanine Aminotransferase 60 Units/L (7-52); Albumin 2.6 g/dL (3.5-5.7); Albumin/Globulin Ratio 0.8 (1.1-2.2); Alkaline Phosphatase 76 Units/L (34-104); Aspartate Amino Transferase 14 Units/L (13-39); BUN/Creatinine Ratio 71 (6-26); Bilirubin,Total 0.3 mg/dL (0.3-1.0); Blood Urea Nitrogen 49 mg/dL (8-23); Calcium 8.9 mg/dL (8.6-10.3); Carbon Dioxide 30 mEq/L (23-29); Chloride 103 mEq/L (98-107); Globulin 3.3 g/dL (2.4-3.5); Glucose 224 mg/dL (70-105); INR 1.4; Magnesium 2.5 mg/dL (1.6-2.6); Osmolality,Calculated 304 (280-300); Phosphorous 4.1 mg/dL (2.7-4.5); Potassium 5.2 mEq/L (3.5-5.1); Prothrombin Time 15.1 Seconds (9.4-12.1); Sodium 137 mEq/L (136-145); Total Protein 5.9 g/dL (6.4-8.9); eGFR For African Americans > 60 (> 60); eGFR For Non-African Americans > 60 (> 60)
[2021-01-30] MEDS: FentaNYL (PF) 1,000 MCG/100 ML IV.SOLN IVC SCH ×3 (04:15→19:59)
[2021-01-30] MEDS: Heparin 25,000UNIT/250ML 1/2NS 25,000 UNIT/250 ML IV.SOLN IVC SCH ×2 (04:22→20:02)
[2021-01-30] MEDS: Cholecalciferol (D-3) 1,000 UNIT (25MCG) TABLET PO SCH (07:23)
[2021-01-30] MEDS: Pantoprazole 40 MG VIAL IVP SCH (07:23)
[2021-01-30] MEDS: MethylPREDNISolone 40 MG/ML VIAL IVP SCH ×2 (07:23→16:03)
[2021-01-30] MEDS: Chlorhexidine Rinse 15 ML MOUTHWASH MM SCH ×2 (07:23→19:59)
[2021-01-30] MEDS: Aspirin 81 MG TAB.CHEW GTUBE SCH (07:23)
[2021-01-30] MEDS: Nystatin Cream 15 GM TUBE TP SCH ×2 (07:24→20:01)
[2021-01-30] MEDS: Furosemide 20 MG/2 ML VIAL IVP SCH (07:26)
[2021-01-30] MEDS: Insulin DETEMIR 100 UNIT/ML X5UNITS SUBQ SCH ×2 (07:28→19:59)
[2021-01-30] MEDS: Budesonide/Formoterol 160/4.5 1 PUFF INH IH SCH (08:33)
[2021-01-30] MEDS: Nystatin POWDER 30 GM BOTTLE TP SCH ×2 (09:33→20:01)
[2021-01-30] MEDS: Multivitamin Liquid 15 ML UDC GTUBE SCH (10:17)
[2021-01-30] MEDS: Dexmedetomidine HCl 400 MCG/100 ML MLS IVC SCH ×3 (12:19→22:15)
[2021-01-30] MEDS: Ipratropium/Albuterol Neb 3 ML IH SCH ×3 (16:57→23:31)
[2021-01-31] MEDS: MethylPREDNISolone 40 MG/ML VIAL IVP SCH ×3 (00:27→16:30)
[2021-01-31] MEDS: Artificial Tears SOLN 15 ML BOTTLE BOTH EYES SCH ×6 (00:27→20:46)
[2021-01-31] MEDS: Insulin LISPRO 300 UNITS/3 ML VIAL SUBQ SCH ×6 (00:28→21:01)
[2021-01-31] MEDS: Vancomycin 1,250 MG/262.5 ML IV.SOLN IVPB SCH ×2 (00:34→12:21)
[2021-01-31] MEDS: FentaNYL (PF) 1,000 MCG/100 ML IV.SOLN IVC SCH ×3 (01:20→12:55)
[2021-01-31] MEDS: Dexmedetomidine HCl 400 MCG/100 ML MLS IVC SCH ×4 (03:43→18:05)
[2021-01-31 04:09] LABS: Basophils # 0.1 K/mcL (0.0-0.2); Basophils % 0.5 %; Hematocrit 37.8 % (35.3-44.9); Hemoglobin 11.4 g/dL (11.5-15.4); Immature Granulocytes % 5.5 % (0-4); Lymphocytes % 7.5 %; Mean Corpuscular HGB Conc 30.2 g/dL (31.6-35.5); Mean Corpuscular Hemoglobin 26.3 pg (28.0-33.3); Mean Corpuscular Volume 87.3 fL (83.0-100.0); Mean Platelet Volume 9.8 fL (9.4-12.4); Monocytes % 7.7 %; Neutrophils # 10.4 K/mcL (1.6-8.9); Nucleated Red Blood Cells 0.2 /100 WBC (0); Platelet Count 271 K/mcL (140-400); Red Blood Count 4.33 M/mcL (3.82-4.97); Red Cell Distribution Width 17.9 % (11.5-14.5); Segmented Neutrophils % 78.8 %; White Blood Count 13.2 K/mcL (4.3-11.1)
[2021-01-31 04:17] LABS: Heparin anti-factor XA UFH 0.72 IU/mL (0.30-0.70)
[2021-01-31 04:18] LABS: INR 1.4; Prothrombin Time 15.6 Seconds (9.4-12.1)
[2021-01-31 04:28] LABS: Polychromasia 1+ (Not Present)
[2021-01-31 04:29] LABS: Alanine Aminotransferase 45 Units/L (7-52); Albumin 2.7 g/dL (3.5-5.7); Albumin/Globulin Ratio 0.8 (1.1-2.2); Alkaline Phosphatase 75 Units/L (34-104); Aspartate Amino Transferase 10 Units/L (13-39); BUN/Creatinine Ratio 70 (6-26); Bilirubin,Total 0.4 mg/dL (0.3-1.0); Blood Urea Nitrogen 39 mg/dL (8-23); Calcium 8.6 mg/dL (8.6-10.3); Carbon Dioxide 31 mEq/L (23-29); Chloride 104 mEq/L (98-107); Globulin 3.4 g/dL (2.4-3.5); Glucose 183 mg/dL (70-105); Magnesium 2.2 mg/dL (1.6-2.6); Osmolality,Calculated 302 (280-300); Phosphorous 3.5 mg/dL (2.7-4.5); Platelet Estimate Normal (Normal); Sodium 139 mEq/L (136-145); Total Protein 6.1 g/dL (6.4-8.9); eGFR For African Americans > 60 (> 60); eGFR For Non-African Americans > 60 (> 60)
[2021-01-31] MEDS: Ipratropium/Albuterol Neb 3 ML IH SCH ×6 (04:38→23:09)
[2021-01-31 04:50] LABS: ABG Base Excess 3 mEq/L (-2 to 3); ABG HCO3 28 mEq/L (21-27); ABG Oxygen Saturation 92 % (95-98); ABG PCO2 41 mmHg (35-45); ABG PH 7.43 pH Units (7.32-7.45); ABG PO2 63 mmHg (85-104); ABG TCO2 29 mEq/L (20-26); Blood Gas VT 400 cc
[2021-01-31] MEDS: Budesonide/Formoterol 160/4.5 1 PUFF INH IH SCH (07:32)
[2021-01-31] MEDS: Aspirin 81 MG TAB.CHEW GTUBE SCH (07:35)
[2021-01-31] MEDS: Cholecalciferol (D-3) 1,000 UNIT (25MCG) TABLET PO SCH (07:36)
[2021-01-31] MEDS: Chlorhexidine Rinse 15 ML MOUTHWASH MM SCH ×2 (07:36→21:04)
[2021-01-31] MEDS: Pantoprazole 40 MG VIAL IVP SCH (07:36)
[2021-01-31] MEDS: Furosemide 20 MG/2 ML VIAL IVP SCH (07:36)
[2021-01-31] MEDS: Nystatin Cream 15 GM TUBE TP SCH ×2 (07:37→20:46)
[2021-01-31] MEDS: Nystatin POWDER 30 GM BOTTLE TP SCH ×2 (07:37→20:46)
[2021-01-31] MEDS: Insulin DETEMIR 100 UNIT/ML X5UNITS SUBQ SCH ×2 (07:40→21:04)
[2021-01-31] MEDS: Multivitamin Liquid 15 ML UDC GTUBE SCH (10:44)
[2021-01-31] MEDS: Heparin 25,000UNIT/250ML 1/2NS 25,000 UNIT/250 ML IV.SOLN IVC SCH (12:20)
[2021-02-01] MEDS: MethylPREDNISolone 40 MG/ML VIAL IVP SCH ×4 (00:21→23:34)
[2021-02-01] MEDS: Artificial Tears SOLN 15 ML BOTTLE BOTH EYES SCH ×7 (00:22→23:28)
[2021-02-01] MEDS: Insulin LISPRO 300 UNITS/3 ML VIAL SUBQ SCH ×6 (00:22→20:11)
[2021-02-01] MEDS: Dexmedetomidine HCl 400 MCG/100 ML MLS IVC SCH ×5 (00:23→22:04)
[2021-02-01] MEDS: FentaNYL (PF) 1,000 MCG/100 ML IV.SOLN IVC SCH ×3 (00:29→20:23)
[2021-02-01] MEDS: Vancomycin 1,250 MG/262.5 ML IV.SOLN IVPB SCH ×2 (01:32→12:52)
[2021-02-01] MEDS: Ipratropium/Albuterol Neb 3 ML IH SCH ×5 (03:09→20:08)
[2021-02-01 04:12] LABS: Basophils # 0.1 K/mcL (0.0-0.2); Basophils % 0.4 %; Hematocrit 38.5 % (35.3-44.9); Hemoglobin 11.8 g/dL (11.5-15.4); Immature Granulocytes % 4.8 % (0-4); Lymphocytes # 0.9 K/mcL (0.6-4.6); Lymphocytes % 6.7 %; Mean Corpuscular HGB Conc 30.6 g/dL (31.6-35.5); Mean Corpuscular Hemoglobin 26.8 pg (28.0-33.3); Mean Corpuscular Volume 87.3 fL (83.0-100.0); Mean Platelet Volume 9.3 fL (9.4-12.4); Monocytes # 0.9 K/mcL (0.0-1.3); Monocytes % 6.3 %; Neutrophils # 11.5 K/mcL (1.6-8.9); Platelet Count 251 K/mcL (140-400); Red Blood Count 4.41 M/mcL (3.82-4.97); Red Cell Distribution Width 17.8 % (11.5-14.5); Segmented Neutrophils % 81.8 %
[2021-02-01 04:29] LABS: INR 1.4; Prothrombin Time 15.3 Seconds (9.4-12.1)
[2021-02-01 04:30] LABS: Alanine Aminotransferase 31 Units/L (7-52); Albumin 2.6 g/dL (3.5-5.7); Albumin/Globulin Ratio 0.8 (1.1-2.2); Alkaline Phosphatase 71 Units/L (34-104); Aspartate Amino Transferase 10 Units/L (13-39); BUN/Creatinine Ratio 58 (6-26); Bilirubin,Total 0.4 mg/dL (0.3-1.0); Blood Urea Nitrogen 31 mg/dL (8-23); Calcium 8.5 mg/dL (8.6-10.3); Carbon Dioxide 32 mEq/L (23-29); Chloride 102 mEq/L (98-107); Globulin 3.4 g/dL (2.4-3.5); Glucose 175 mg/dL (70-105); Magnesium 1.8 mg/dL (1.6-2.6); Osmolality,Calculated 297 (280-300); Potassium 4.8 mEq/L (3.5-5.1); Sodium 138 mEq/L (136-145); eGFR For African Americans > 60 (> 60); eGFR For Non-African Americans > 60 (> 60)
[2021-02-01 04:32] LABS: ABG Base Excess 4 mEq/L (-2 to 3); ABG HCO3 31 mEq/L (21-27); ABG Oxygen Saturation 92 % (95-98); ABG PCO2 55 mmHg (35-45); ABG PH 7.37 pH Units (7.32-7.45); ABG PO2 67 mmHg (85-104); ABG TCO2 33 mEq/L (20-26); Blood Gas Modality ASSIST CONTROL; Blood Gas VT 400 cc
[2021-02-01] MEDS: Cholecalciferol (D-3) 1,000 UNIT (25MCG) TABLET PO SCH (08:07)
[2021-02-01] MEDS: Furosemide 20 MG/2 ML VIAL IVP SCH ×2 (08:07→20:18)
[2021-02-01] MEDS: Aspirin 81 MG TAB.CHEW GTUBE SCH (08:07)
[2021-02-01] MEDS: Chlorhexidine Rinse 15 ML MOUTHWASH MM SCH ×2 (08:07→20:17)
[2021-02-01] MEDS: Nystatin POWDER 30 GM BOTTLE TP SCH ×2 (08:08→20:12)
[2021-02-01] MEDS: Pantoprazole 40 MG VIAL IVP SCH (08:08)
[2021-02-01] MEDS: Budesonide/Formoterol 160/4.5 1 PUFF INH IH SCH (08:33)
[2021-02-01] MEDS: Insulin DETEMIR 100 UNIT/ML X5UNITS SUBQ SCH ×2 (08:41→20:18)
[2021-02-01] MEDS: Nystatin Cream 15 GM TUBE TP SCH ×2 (08:41→20:12)
[2021-02-01] MEDS: Multivitamin Liquid 15 ML UDC GTUBE SCH (10:53)
[2021-02-01] MEDS: Heparin 25,000UNIT/250ML 1/2NS 25,000 UNIT/250 ML IV.SOLN IVC SCH (23:29)
[2021-02-01] MEDS: Scopolamine Patch 1.5 MG PATCH.TD72 TD SCH (23:34)
[2021-02-02] MEDS: Ipratropium/Albuterol Neb 3 ML IH SCH ×7 (00:04→23:44)
[2021-02-02] MEDS: Insulin LISPRO 300 UNITS/3 ML VIAL SUBQ SCH ×6 (01:57→19:54)
[2021-02-02] MEDS: Vancomycin 1,250 MG/262.5 ML IV.SOLN IVPB SCH ×2 (01:59→12:40)
[2021-02-02] MEDS: Dexmedetomidine HCl 400 MCG/100 ML MLS IVC SCH ×6 (03:36→23:09)
[2021-02-02] MEDS: Artificial Tears SOLN 15 ML BOTTLE BOTH EYES SCH ×6 (03:36→23:54)
[2021-02-02 04:01] LABS: Basophils % 0.2 %; Hematocrit 38.5 % (35.3-44.9); Hemoglobin 11.8 g/dL (11.5-15.4); Immature Granulocytes % 3.6 % (0-4); Lymphocytes # 0.9 K/mcL (0.6-4.6); Lymphocytes % 6.1 %; Mean Corpuscular HGB Conc 30.6 g/dL (31.6-35.5); Mean Corpuscular Hemoglobin 26.6 pg (28.0-33.3); Mean Corpuscular Volume 86.7 fL (83.0-100.0); Mean Platelet Volume 9.7 fL (9.4-12.4); Monocytes # 0.7 K/mcL (0.0-1.3); Monocytes % 5.2 %; Neutrophils # 11.8 K/mcL (1.6-8.9); Platelet Count 261 K/mcL (140-400); Red Blood Count 4.44 M/mcL (3.82-4.97); Red Cell Distribution Width 17.5 % (11.5-14.5); Segmented Neutrophils % 84.9 %; White Blood Count 13.9 K/mcL (4.3-11.1)
[2021-02-02 04:16] LABS: INR 1.3; Prothrombin Time 14.2 Seconds (9.4-12.1)
[2021-02-02 04:25] LABS: Alanine Aminotransferase 22 Units/L (7-52); Albumin 2.6 g/dL (3.5-5.7); Albumin/Globulin Ratio 0.8 (1.1-2.2); Alkaline Phosphatase 73 Units/L (34-104); Aspartate Amino Transferase 8 Units/L (13-39); BUN/Creatinine Ratio 54 (6-26); Bilirubin,Total 0.5 mg/dL (0.3-1.0); Blood Urea Nitrogen 29 mg/dL (8-23); Calcium 8.6 mg/dL (8.6-10.3); Carbon Dioxide 31 mEq/L (23-29); Chloride 99 mEq/L (98-107); Globulin 3.4 g/dL (2.4-3.5); Glucose 185 mg/dL (70-105); Magnesium 1.7 mg/dL (1.6-2.6); Osmolality,Calculated 295 (280-300); Phosphorous 4.3 mg/dL (2.7-4.5); Potassium 4.4 mEq/L (3.5-5.1); Sodium 137 mEq/L (136-145); eGFR For African Americans > 60 (> 60); eGFR For Non-African Americans > 60 (> 60)
[2021-02-02 05:02] LABS: ABG Base Excess 6 mEq/L (-2 to 3); ABG HCO3 32 mEq/L (21-27); ABG Oxygen Saturation 92 % (95-98); ABG PCO2 53 mmHg (35-45); ABG PH 7.39 pH Units (7.32-7.45); ABG PO2 66 mmHg (85-104); ABG TCO2 34 mEq/L (20-26); Blood Gas Modality AF; Blood Gas VT 400 cc
[2021-02-02] MEDS: MethylPREDNISolone 40 MG/ML VIAL IVP SCH ×2 (07:48→16:17)
[2021-02-02] MEDS: Cholecalciferol (D-3) 1,000 UNIT (25MCG) TABLET PO SCH (07:49)
[2021-02-02] MEDS: Aspirin 81 MG TAB.CHEW GTUBE SCH (07:49)
[2021-02-02] MEDS: Pantoprazole 40 MG VIAL IVP SCH (07:49)
[2021-02-02] MEDS: Chlorhexidine Rinse 15 ML MOUTHWASH MM SCH ×2 (07:49→20:07)
[2021-02-02] MEDS: Furosemide 20 MG/2 ML VIAL IVP SCH ×2 (07:49→20:07)
[2021-02-02] MEDS: FentaNYL (PF) 1,000 MCG/100 ML IV.SOLN IVC SCH ×2 (07:50→18:25)
[2021-02-02] MEDS: Nystatin POWDER 30 GM BOTTLE TP SCH ×2 (07:51→19:56)
[2021-02-02] MEDS: Nystatin Cream 15 GM TUBE TP SCH ×2 (07:51→19:56)
[2021-02-02] MEDS: Budesonide/Formoterol 160/4.5 1 PUFF INH IH SCH (08:05)
[2021-02-02] MEDS: Insulin DETEMIR 100 UNIT/ML X5UNITS SUBQ SCH ×2 (08:18→19:55)
[2021-02-02] MEDS: Multivitamin Liquid 15 ML UDC GTUBE SCH (10:37)
[2021-02-02] MEDS ORDERED: *HR* Metoprolol 5 MG/5 ML VIAL IVP ONE (11:34)
[2021-02-02] MEDS: *HR* Metoprolol 5 MG/5 ML VIAL IVP PRN (11:40)
[2021-02-02] MEDS: Heparin 25,000UNIT/250ML 1/2NS 25,000 UNIT/250 ML IV.SOLN IVC SCH (16:16)
[2021-02-02] MEDS: Gabapentin 300 MG CAPSULE PO SCH (18:25)
[2021-02-02] MEDS: QUEtiapine Fumarate 25 MG TABLET PO SCH (20:07)
[2021-02-03] MEDS: Insulin LISPRO 300 UNITS/3 ML VIAL SUBQ SCH ×6 (00:13→20:30)
[2021-02-03] MEDS: Artificial Tears SOLN 15 ML BOTTLE BOTH EYES SCH ×5 (03:16→20:30)
[2021-02-03] MEDS: Dexmedetomidine HCl 400 MCG/100 ML MLS IVC SCH ×6 (03:16→20:51)
[2021-02-03 04:05] LABS: Basophils % 0.3 %; Immature Granulocytes % 2.4 % (0-4); Lymphocytes # 0.8 K/mcL (0.6-4.6); Lymphocytes % 6.3 %; Mean Corpuscular HGB Conc 30.8 g/dL (31.6-35.5); Mean Corpuscular Hemoglobin 26.7 pg (28.0-33.3); Mean Corpuscular Volume 86.9 fL (83.0-100.0); Mean Platelet Volume 9.6 fL (9.4-12.4); Monocytes # 0.6 K/mcL (0.0-1.3); Neutrophils # 10.6 K/mcL (1.6-8.9); Platelet Count 274 K/mcL (140-400); Red Blood Count 4.49 M/mcL (3.82-4.97); Red Cell Distribution Width 17.3 % (11.5-14.5); White Blood Count 12.3 K/mcL (4.3-11.1)
[2021-02-03] MEDS: Ipratropium/Albuterol Neb 3 ML IH SCH ×6 (04:21→23:57)
[2021-02-03 04:30] LABS: INR 1.2; Prothrombin Time 13.5 Seconds (9.4-12.1)
[2021-02-03 05:06] LABS: Alanine Aminotransferase 18 Units/L (7-52); Albumin 2.7 g/dL (3.5-5.7); Albumin/Globulin Ratio 0.8 (1.1-2.2); Alkaline Phosphatase 78 Units/L (34-104); Aspartate Amino Transferase 9 Units/L (13-39); BUN/Creatinine Ratio 55 (6-26); Bilirubin,Total 0.7 mg/dL (0.3-1.0); Blood Urea Nitrogen 24 mg/dL (8-23); Calcium 8.7 mg/dL (8.6-10.3); Carbon Dioxide 32 mEq/L (23-29); Chloride 97 mEq/L (98-107); Globulin 3.4 g/dL (2.4-3.5); Glucose 198 mg/dL (70-105); Magnesium 1.7 mg/dL (1.6-2.6); Osmolality,Calculated 294 (280-300); Phosphorous 3.7 mg/dL (2.7-4.5); Potassium 4.4 mEq/L (3.5-5.1); Sodium 137 mEq/L (136-145); Total Protein 6.1 g/dL (6.4-8.9); eGFR For African Americans > 60 (> 60); eGFR For Non-African Americans > 60 (> 60)
[2021-02-03 05:15] LABS: ABG Base Excess 7 mEq/L (-2 to 3); ABG HCO3 33 mEq/L (21-27); ABG Oxygen Saturation 93 % (95-98); ABG PCO2 52 mmHg (35-45); ABG PH 7.41 pH Units (7.32-7.45); ABG PO2 69 mmHg (85-104); ABG TCO2 35 mEq/L (20-26); Blood Gas Modality ASSIST CONTROL; Blood Gas VT 400 cc
[2021-02-03] MEDS: FentaNYL (PF) 1,000 MCG/100 ML IV.SOLN IVC SCH ×3 (05:50→23:31)
[2021-02-03] MEDS: Budesonide/Formoterol 160/4.5 1 PUFF INH IH SCH (08:11)
[2021-02-03] MEDS: Furosemide 20 MG/2 ML VIAL IVP SCH ×2 (08:59→20:31)
[2021-02-03] MEDS: Chlorhexidine Rinse 15 ML MOUTHWASH MM SCH ×2 (08:59→20:30)
[2021-02-03] MEDS: MethylPREDNISolone 40 MG/ML VIAL IVP SCH ×3 (08:59→16:37)
[2021-02-03] MEDS: Pantoprazole 40 MG VIAL IVP SCH (08:59)
[2021-02-03] MEDS: Nystatin POWDER 30 GM BOTTLE TP SCH ×2 (09:00→20:31)
[2021-02-03] MEDS: Cholecalciferol (D-3) 1,000 UNIT (25MCG) TABLET PO SCH (09:00)
[2021-02-03] MEDS: Gabapentin 300 MG CAPSULE PO SCH ×2 (09:00→20:30)
[2021-02-03] MEDS: Nystatin Cream 15 GM TUBE TP SCH ×2 (09:00→20:31)
[2021-02-03] MEDS: Aspirin 81 MG TAB.CHEW GTUBE SCH (09:00)
[2021-02-03] MEDS: QUEtiapine Fumarate 25 MG TABLET PO SCH ×2 (09:00→20:30)
[2021-02-03] MEDS: Insulin DETEMIR 100 UNIT/ML X5UNITS SUBQ SCH ×2 (09:01→20:35)
[2021-02-03] MEDS: Heparin 25,000UNIT/250ML 1/2NS 25,000 UNIT/250 ML IV.SOLN IVC SCH (12:04)
[2021-02-03] MEDS: Multivitamin Liquid 15 ML UDC GTUBE SCH (12:05)
[2021-02-03] MEDS: Vancomycin 1,250 MG/262.5 ML IV.SOLN IVPB SCH ×2 (15:04)
[2021-02-04] MEDS: MethylPREDNISolone 40 MG/ML VIAL IVP SCH ×4 (00:32→23:22)
[2021-02-04] MEDS: Dexmedetomidine HCl 400 MCG/100 ML MLS IVC SCH ×7 (00:33→23:23)
[2021-02-04] MEDS: Vancomycin 1,250 MG/262.5 ML IV.SOLN IVPB SCH ×2 (00:33→12:30)
[2021-02-04] MEDS: Insulin LISPRO 300 UNITS/3 ML VIAL SUBQ SCH ×7 (00:34→23:23)
[2021-02-04] MEDS: Artificial Tears SOLN 15 ML BOTTLE BOTH EYES SCH ×3 (00:34→07:25)
[2021-02-04] MEDS: Ipratropium/Albuterol Neb 3 ML IH SCH ×6 (04:02→23:58)
[2021-02-04 04:40] LABS: Basophils % 0.2 %; Hemoglobin 12.4 g/dL (11.5-15.4); Immature Granulocytes % 1.4 % (0-4); Lymphocytes # 0.7 K/mcL (0.6-4.6); Mean Corpuscular Hemoglobin 26.5 pg (28.0-33.3); Mean Corpuscular Volume 85.5 fL (83.0-100.0); Monocytes # 0.6 K/mcL (0.0-1.3); Monocytes % 5.3 %; Neutrophils # 10.4 K/mcL (1.6-8.9); Platelet Count 294 K/mcL (140-400); Red Blood Count 4.68 M/mcL (3.82-4.97); Red Cell Distribution Width 17.5 % (11.5-14.5); Segmented Neutrophils % 87.1 %; White Blood Count 11.9 K/mcL (4.3-11.1)
[2021-02-04 04:43] LABS: VBG Ionized Calcium 1.16 mmol/L (1.15-1.35)
[2021-02-04 04:50] LABS: Alanine Aminotransferase 15 Units/L (7-52); Albumin 2.7 g/dL (3.5-5.7); Albumin/Globulin Ratio 0.8 (1.1-2.2); Alkaline Phosphatase 82 Units/L (34-104); Aspartate Amino Transferase 8 Units/L (13-39); BUN/Creatinine Ratio 49 (6-26); Bilirubin,Total 0.7 mg/dL (0.3-1.0); Blood Urea Nitrogen 24 mg/dL (8-23); Carbon Dioxide 33 mEq/L (23-29); Chloride 95 mEq/L (98-107); Globulin 3.4 g/dL (2.4-3.5); Glucose 300 mg/dL (70-105); Magnesium 1.6 mg/dL (1.6-2.6); Osmolality,Calculated 297 (280-300); Phosphorous 2.7 mg/dL (2.7-4.5); Sodium 136 mEq/L (136-145); Total Protein 6.1 g/dL (6.4-8.9); eGFR For African Americans > 60 (> 60); eGFR For Non-African Americans > 60 (> 60)
[2021-02-04 04:57] LABS: ABG Base Excess 10 mEq/L (-2 to 3); ABG HCO3 36 mEq/L (21-27); ABG Oxygen Saturation 97 % (95-98); ABG PCO2 53 mmHg (35-45); ABG PH 7.44 pH Units (7.32-7.45); ABG PO2 94 mmHg (85-104); ABG TCO2 38 mEq/L (20-26); Blood Gas VT 400 cc
[2021-02-04] MEDS: Heparin 25,000UNIT/250ML 1/2NS 25,000 UNIT/250 ML IV.SOLN IVC SCH ×4 (06:14→23:21)
[2021-02-04] MEDS: Chlorhexidine Rinse 15 ML MOUTHWASH MM SCH ×2 (07:24→19:37)
[2021-02-04] MEDS: Furosemide 20 MG/2 ML VIAL IVP SCH ×2 (07:24→19:37)
[2021-02-04] MEDS: Gabapentin 300 MG CAPSULE PO SCH ×2 (07:24→19:40)
[2021-02-04] MEDS: Cholecalciferol (D-3) 1,000 UNIT (25MCG) TABLET PO SCH (07:24)
[2021-02-04] MEDS: Pantoprazole 40 MG VIAL IVP SCH (07:24)
[2021-02-04] MEDS: QUEtiapine Fumarate 25 MG TABLET PO SCH ×2 (07:24→19:40)
[2021-02-04] MEDS: Aspirin 81 MG TAB.CHEW GTUBE SCH (07:25)
[2021-02-04] MEDS: Budesonide/Formoterol 160/4.5 1 PUFF INH IH SCH (07:28)
[2021-02-04] MEDS: Insulin DETEMIR 100 UNIT/ML X5UNITS SUBQ SCH ×2 (08:39→19:48)
[2021-02-04] MEDS: Nystatin Cream 15 GM TUBE TP SCH ×2 (08:40→19:39)
[2021-02-04] MEDS: Nystatin POWDER 30 GM BOTTLE TP SCH ×2 (08:40→19:39)
[2021-02-04] MEDS: *HR* Metoprolol 5 MG/5 ML VIAL IVP PRN (10:04)
[2021-02-04] MEDS: Multivitamin Liquid 15 ML UDC GTUBE SCH (10:30)
[2021-02-04] MEDS ORDERED: *HR* Metoprolol 5 MG/5 ML VIAL IVP ONE ×2 (10:34→10:37)
[2021-02-04] MEDS: DilTIAZem 50 MG in 0.9 % Sodium Chloride 40 ML IVC SCH ×3 (11:11→17:50)
[2021-02-04 11:46] LABS: ABG Base Excess 9 mEq/L (-2 to 3); ABG HCO3 35 mEq/L (21-27); ABG Oxygen Saturation 96 % (95-98); ABG PCO2 49 mmHg (35-45); ABG PH 7.46 pH Units (7.32-7.45); ABG PO2 76 mmHg (85-104); ABG TCO2 36 mEq/L (20-26); Blood Gas Modality BiLevel
[2021-02-04] MEDS ORDERED: Morphine Sulfate 2 MG/ML SYRINGE IVP PRN (21:05)
[2021-02-04] MEDS: Scopolamine Patch 1.5 MG PATCH.TD72 TD SCH (23:22)
[2021-02-05] MEDS: Vancomycin 1,250 MG/262.5 ML IV.SOLN IVPB SCH ×2 (02:13→14:56)
[2021-02-05] MEDS: Dexmedetomidine HCl 400 MCG/100 ML MLS IVC SCH ×6 (02:57→22:55)
[2021-02-05] MEDS: Insulin LISPRO 300 UNITS/3 ML VIAL SUBQ SCH ×6 (03:35→23:41)
[2021-02-05] MEDS: Ipratropium/Albuterol Neb 3 ML IH SCH ×6 (03:46→23:11)
[2021-02-05 03:50] LABS: Basophils % 0.2 %; Hematocrit 37.7 % (35.3-44.9); Hemoglobin 11.4 g/dL (11.5-15.4); Immature Granulocytes % 1.1 % (0-4); Lymphocytes # 0.7 K/mcL (0.6-4.6); Lymphocytes % 6.9 %; Mean Corpuscular HGB Conc 30.2 g/dL (31.6-35.5); Mean Corpuscular Hemoglobin 26.3 pg (28.0-33.3); Mean Corpuscular Volume 87.1 fL (83.0-100.0); Mean Platelet Volume 9.6 fL (9.4-12.4); Monocytes # 0.3 K/mcL (0.0-1.3); Monocytes % 3.3 %; Neutrophils # 9.2 K/mcL (1.6-8.9); Platelet Count 278 K/mcL (140-400); Red Blood Count 4.33 M/mcL (3.82-4.97); Red Cell Distribution Width 17.4 % (11.5-14.5); Segmented Neutrophils % 88.5 %; White Blood Count 10.4 K/mcL (4.3-11.1)
[2021-02-05 04:11] LABS: VBG Ionized Calcium 1.19 mmol/L (1.15-1.35)
[2021-02-05 04:12] LABS: BUN/Creatinine Ratio 62 (6-26); Blood Urea Nitrogen 23 mg/dL (8-23); Calcium 8.4 mg/dL (8.6-10.3); Carbon Dioxide 35 mEq/L (23-29); Chloride 100 mEq/L (98-107); Glucose 131 mg/dL (70-105); Magnesium 1.7 mg/dL (1.6-2.6); Osmolality,Calculated 295 (280-300); Phosphorous 3.3 mg/dL (2.7-4.5); Potassium 3.7 mEq/L (3.5-5.1); Sodium 140 mEq/L (136-145); eGFR For African Americans > 60 (> 60); eGFR For Non-African Americans > 60 (> 60)
[2021-02-05] MEDS: Chlorhexidine Rinse 15 ML MOUTHWASH MM SCH (07:21)
[2021-02-05] MEDS: MethylPREDNISolone 40 MG/ML VIAL IVP SCH ×3 (07:21→23:08)
[2021-02-05] MEDS: Pantoprazole 40 MG VIAL IVP SCH (07:22)
[2021-02-05] MEDS: Furosemide 20 MG/2 ML VIAL IVP SCH ×2 (07:22→19:57)
[2021-02-05] MEDS: Nystatin POWDER 30 GM BOTTLE TP SCH ×2 (07:23→20:48)
[2021-02-05] MEDS: Nystatin Cream 15 GM TUBE TP SCH ×2 (07:23→20:47)
[2021-02-05] MEDS: Insulin DETEMIR 100 UNIT/ML X5UNITS SUBQ SCH ×2 (07:24→20:56)
[2021-02-05] MEDS: Budesonide/Formoterol 160/4.5 1 PUFF INH IH SCH (08:31)
[2021-02-05] MEDS: Aspirin 81 MG TAB.CHEW GTUBE SCH (08:32)
[2021-02-05] MEDS: Gabapentin 300 MG CAPSULE PO SCH ×2 (08:32→20:12)
[2021-02-05] MEDS: QUEtiapine Fumarate 25 MG TABLET PO SCH ×2 (08:33→20:12)
[2021-02-05] MEDS: Cholecalciferol (D-3) 1,000 UNIT (25MCG) TABLET PO SCH (08:33)
[2021-02-05] MEDS: Multivitamin Liquid 15 ML UDC GTUBE SCH (08:33)
[2021-02-05] MEDS ORDERED: *HR* Heparin 5,000 UNIT/ML VIAL IVP PRN ×2 (10:54)
[2021-02-05] MEDS ORDERED: *HR* Dextrose 50 % in Water (Syg) 50 ML SYRINGE IVP PRN (10:54)
[2021-02-05] MEDS ORDERED: D5% in Water 1,000 ML IVC PRN (10:54)
[2021-02-05] MEDS ORDERED: Dextrose Gel 15 GM/37.5 ML TUBE PO PRN ×2 (10:54)
[2021-02-05] MEDS ORDERED: Naloxone 0.4 MG/ML INJ IVP PRN (10:54)
[2021-02-05] MEDS ORDERED: Acetaminophen 325 MG TABLET PO PRN (10:54)
[2021-02-05] MEDS ORDERED: Ipratropium/Albuterol Neb 3 ML ONE (11:11)
[2021-02-05] MEDS: *HR* Metoprolol 5 MG/5 ML VIAL IVP PRN (12:41)
[2021-02-05] MEDS: Heparin 25,000UNIT/250ML 1/2NS 25,000 UNIT/250 ML IV.SOLN IVC SCH ×2 (14:54→18:27)
[2021-02-06] MEDS: Vancomycin 1,250 MG/262.5 ML IV.SOLN IVPB SCH ×2 (00:57→13:30)
[2021-02-06] MEDS: Dexmedetomidine HCl 400 MCG/100 ML MLS IVC SCH ×2 (02:29→06:01)
[2021-02-06 03:40] LABS: VBG Ionized Calcium 1.15 mmol/L (1.15-1.35)
[2021-02-06 03:41] LABS: Basophils % 0.1 %; Hematocrit 37.4 % (35.3-44.9); Hemoglobin 11.7 g/dL (11.5-15.4); Immature Granulocytes % 0.8 % (0-4); Lymphocytes # 0.6 K/mcL (0.6-4.6); Lymphocytes % 4.7 %; Mean Corpuscular HGB Conc 31.3 g/dL (31.6-35.5); Mean Corpuscular Hemoglobin 27.3 pg (28.0-33.3); Mean Corpuscular Volume 87.2 fL (83.0-100.0); Monocytes # 0.4 K/mcL (0.0-1.3); Monocytes % 3.1 %; Neutrophils # 12.1 K/mcL (1.6-8.9); Platelet Count 314 K/mcL (140-400); Red Blood Count 4.29 M/mcL (3.82-4.97); Red Cell Distribution Width 17.9 % (11.5-14.5); Segmented Neutrophils % 91.3 %; White Blood Count 13.3 K/mcL (4.3-11.1)
[2021-02-06 03:59] LABS: BUN/Creatinine Ratio 49 (6-26); Blood Urea Nitrogen 22 mg/dL (8-23); Calcium 8.8 mg/dL (8.6-10.3); Carbon Dioxide 32 mEq/L (23-29); Chloride 100 mEq/L (98-107); Glucose 201 mg/dL (70-105); Magnesium 1.8 mg/dL (1.6-2.6); Osmolality,Calculated 301 (280-300); Phosphorous 2.4 mg/dL (2.7-4.5); Sodium 141 mEq/L (136-145); eGFR For African Americans > 60 (> 60); eGFR For Non-African Americans > 60 (> 60)
[2021-02-06] MEDS: Insulin LISPRO 300 UNITS/3 ML VIAL SUBQ SCH ×5 (04:13→20:58)
[2021-02-06] MEDS: Ipratropium/Albuterol Neb 3 ML IH SCH ×6 (04:18→23:47)
[2021-02-06] MEDS: Aspirin 81 MG TAB.CHEW GTUBE SCH (07:58)
[2021-02-06] MEDS: QUEtiapine Fumarate 25 MG TABLET PO SCH ×2 (07:58→20:24)
[2021-02-06] MEDS: Cholecalciferol (D-3) 1,000 UNIT (25MCG) TABLET PO SCH (07:58)
[2021-02-06] MEDS: MethylPREDNISolone 40 MG/ML VIAL IVP SCH ×2 (07:59→20:23)
[2021-02-06] MEDS: Pantoprazole 40 MG VIAL IVP SCH (07:59)
[2021-02-06] MEDS: Furosemide 20 MG/2 ML VIAL IVP SCH ×2 (08:00→20:23)
[2021-02-06] MEDS: Gabapentin 300 MG CAPSULE PO SCH ×2 (08:02→20:24)
[2021-02-06] MEDS: Multivitamin Liquid 15 ML UDC GTUBE SCH (08:02)
[2021-02-06] MEDS: Insulin DETEMIR 100 UNIT/ML X5UNITS SUBQ SCH (08:02)
[2021-02-06] MEDS: Nystatin Cream 15 GM TUBE TP SCH (08:02)
[2021-02-06] MEDS: Nystatin POWDER 30 GM BOTTLE TP SCH (08:03)
[2021-02-06] MEDS: Budesonide/Formoterol 160/4.5 1 PUFF INH IH SCH (08:07)
[2021-02-06] MEDS: Heparin 25,000UNIT/250ML 1/2NS 25,000 UNIT/250 ML IV.SOLN IVC SCH (13:05)
[2021-02-06] MEDS: *HR* Metoprolol 5 MG/5 ML VIAL IVP PRN (13:20)
[2021-02-07] MEDS: Nystatin POWDER 30 GM BOTTLE TP SCH ×3 (00:16→23:20)
[2021-02-07] MEDS: Nystatin Cream 15 GM TUBE TP SCH ×3 (00:16→23:20)
[2021-02-07] MEDS: Vancomycin 1,250 MG/262.5 ML IV.SOLN IVPB SCH ×2 (00:40→13:46)
[2021-02-07] MEDS: Insulin LISPRO 300 UNITS/3 ML VIAL SUBQ SCH ×6 (01:21→20:07)
[2021-02-07] MEDS: Ipratropium/Albuterol Neb 3 ML IH SCH ×6 (03:44→23:33)
[2021-02-07 04:01] LABS: Basophils % 0.2 %; Hematocrit 40.5 % (35.3-44.9); Immature Granulocytes % 0.8 % (0-4); Lymphocytes # 0.5 K/mcL (0.6-4.6); Lymphocytes % 3.8 %; Mean Corpuscular HGB Conc 29.6 g/dL (31.6-35.5); Mean Corpuscular Hemoglobin 26.5 pg (28.0-33.3); Mean Corpuscular Volume 89.6 fL (83.0-100.0); Mean Platelet Volume 10.4 fL (9.4-12.4); Monocytes # 0.2 K/mcL (0.0-1.3); Monocytes % 1.2 %; Neutrophils # 12.1 K/mcL (1.6-8.9); Platelet Count 328 K/mcL (140-400); Red Blood Count 4.52 M/mcL (3.82-4.97); Red Cell Distribution Width 18.6 % (11.5-14.5); White Blood Count 12.8 K/mcL (4.3-11.1)
[2021-02-07 04:02] LABS: VBG Ionized Calcium 1.17 mmol/L (1.15-1.35)
[2021-02-07 04:18] LABS: BUN/Creatinine Ratio 43 (6-26); Blood Urea Nitrogen 22 mg/dL (8-23); Calcium 8.9 mg/dL (8.6-10.3); Carbon Dioxide 37 mEq/L (23-29); Chloride 98 mEq/L (98-107); Glucose 192 mg/dL (70-105); Magnesium 1.8 mg/dL (1.6-2.6); Osmolality,Calculated 303 (280-300); Phosphorous 3.2 mg/dL (2.7-4.5); Potassium 3.5 mEq/L (3.5-5.1); Sodium 142 mEq/L (136-145); eGFR For African Americans > 60 (> 60); eGFR For Non-African Americans > 60 (> 60)
[2021-02-07] MEDS: *HR* Metoprolol 5 MG/5 ML VIAL IVP PRN ×2 (05:10→16:55)
[2021-02-07] MEDS: Budesonide/Formoterol 160/4.5 1 PUFF INH IH SCH (08:00)
[2021-02-07] MEDS: Aspirin 81 MG TAB.CHEW GTUBE SCH (10:08)
[2021-02-07] MEDS: Gabapentin 300 MG CAPSULE PO SCH ×2 (10:08→20:09)
[2021-02-07] MEDS: QUEtiapine Fumarate 25 MG TABLET PO SCH ×2 (10:09→20:10)
[2021-02-07] MEDS: Cholecalciferol (D-3) 1,000 UNIT (25MCG) TABLET PO SCH (10:09)
[2021-02-07] MEDS: Multivitamin Liquid 15 ML UDC GTUBE SCH (10:09)
[2021-02-07] MEDS: Pantoprazole 40 MG VIAL IVP SCH (10:29)
[2021-02-07] MEDS: MethylPREDNISolone 40 MG/ML VIAL IVP SCH ×2 (10:30→20:40)
[2021-02-07] MEDS: Heparin 25,000UNIT/250ML 1/2NS 25,000 UNIT/250 ML IV.SOLN IVC SCH ×2 (10:30→21:20)
[2021-02-07] MEDS: Furosemide 20 MG/2 ML VIAL IVP SCH ×2 (10:30→20:08)
[2021-02-07] MEDS ORDERED: *HR* EPINEPHrine 1 MG/10 ML SYRINGE IVP ONE (11:30)
[2021-02-07] MEDS ORDERED: E-Z-HD (BARIUM SULF) SUSPENSION PO ONE (11:59)
[2021-02-07] MEDS ORDERED: E-Z-PAQUE (BARIUM SULF) SUSP 1 BOTTLE PO ONE (11:59)
[2021-02-07] MEDS ORDERED: Perflutren Lipid Microsphere 1.3 ML in 0.9 % Sodium Chloride 8.7 ML IVP PRN (13:50)
[2021-02-07 15:54] LABS: Hepatitis B Surface Antigen Nonreactive (Nonreactive)
[2021-02-07 16:23] LABS: Hepatitis C Virus Antibody Nonreactive (Nonreactive)
[2021-02-07 16:26] LABS: Hepatitis B Core IgM Nonreactive (Nonreactive)
[2021-02-07 16:27] LABS: Hepatitis A Antibody IgM Nonreactive (Nonreactive)
[2021-02-07] MEDS ORDERED: *HR* LORazepam 2 MG/ML VIAL IVP PRN (17:34)
[2021-02-07] MEDS ORDERED: Haloperidol Lactate 5 MG/ML VIAL IVP PRN (17:41)
[2021-02-07] MEDS ORDERED: FentaNYL (PF) 1,000 MCG/100 ML IV.SOLN IVC SCH ×2 (19:30→20:15)
[2021-02-07] MEDS ORDERED: *HR* Midazolam HCl 5 MG/5 ML VIAL IVP ONE (19:35)
[2021-02-07 19:48] LABS: Heparin anti-factor XA UFH 0.41 IU/mL (0.30-0.70); INR 1.3; Prothrombin Time 14.4 Seconds (9.4-12.1)
[2021-02-07 19:52] LABS: Basophils # 0.1 K/mcL (0.0-0.2); Basophils % 0.5 %; Hematocrit 43.3 % (35.3-44.9); Hemoglobin 12.6 g/dL (11.5-15.4); Immature Granulocytes % 3.8 % (0-4); Lymphocytes # 2.5 K/mcL (0.6-4.6); Lymphocytes % 19.6 %; Mean Corpuscular HGB Conc 29.1 g/dL (31.6-35.5); Mean Corpuscular Hemoglobin 26.8 pg (28.0-33.3); Mean Corpuscular Volume 92.1 fL (83.0-100.0); Mean Platelet Volume 10.3 fL (9.4-12.4); Monocytes # 0.5 K/mcL (0.0-1.3); Neutrophils # 9.3 K/mcL (1.6-8.9); Nucleated Red Blood Cells 0.2 /100 WBC (0); Platelet Count 316 K/mcL (140-400); Red Cell Distribution Width 18.8 % (11.5-14.5); Segmented Neutrophils % 72.1 %; White Blood Count 12.9 K/mcL (4.3-11.1)
[2021-02-07] MEDS ORDERED: 0.9 % Sodium Chloride 1,000 ML IVC ONE (19:59)
[2021-02-07] MEDS ORDERED: 0.9 % Sodium Chloride 1,000 ML ONE (20:01)
[2021-02-07] MEDS ORDERED: Artificial Tears SOLN 15 ML BOTTLE BOTH EYES PRN (20:07)
[2021-02-07] MEDS ORDERED: *HR* Midazolam HCl 2 MG/2 ML VIAL IVP PRN (20:19)
[2021-02-07] MEDS ORDERED: Amiodarone Premix 360 MG/200 ML BAG IVC ONE (20:23)
[2021-02-07] MEDS ORDERED: Amiodarone Premix 150 MG/100 ML BAG IVPB ONE (20:23)
[2021-02-07 20:36] LABS: Troponin I 0.06 ng/mL (< 0.04)
[2021-02-07 20:53] LABS: ABG Base Excess 7 mEq/L (-2 to 3); ABG HCO3 35 mEq/L (21-27); ABG Oxygen Saturation 100 % (95-98); ABG PCO2 60 mmHg (35-45); ABG PH 7.37 pH Units (7.32-7.45); ABG PO2 378 mmHg (85-104); ABG TCO2 36 mEq/L (20-26); Blood Gas Modality ASSIST CONTROL; Blood Gas VT 420 cc
[2021-02-07 21:06] LABS: BUN/Creatinine Ratio 41 (6-26); Blood Urea Nitrogen 24 mg/dL (8-23); Carbon Dioxide 30 mEq/L (23-29); Chloride 97 mEq/L (98-107); Potassium 4.3 mEq/L (3.5-5.1); Sodium 143 mEq/L (136-145); eGFR For African Americans > 60 (> 60)
[2021-02-07 21:07] LABS: Alanine Aminotransferase 58 Units/L (7-52); Alkaline Phosphatase 87 Units/L (34-104); Aspartate Amino Transferase 51 Units/L (13-39); Bilirubin,Total 0.9 mg/dL (0.3-1.0); Calcium 8.9 mg/dL (8.6-10.3); Glucose 307 mg/dL (70-105); Magnesium 2.1 mg/dL (1.6-2.6); Osmolality,Calculated 312 (280-300); Phosphorous 4.2 mg/dL (2.7-4.5); eGFR For Non-African Americans > 60 (> 60)
[2021-02-07] MEDS: Dexmedetomidine HCl 400 MCG/100 ML MLS IVC SCH (21:09)
[2021-02-07] MEDS: Chlorhexidine Rinse 15 ML MOUTHWASH MM SCH (21:17)
[2021-02-07] MEDS ORDERED: 0.9 % Sodium Chloride 1,000 ML IVC SCH (23:15)
[2021-02-07] MEDS: *HR* Acetylcysteine 20% 600 MG/3 ML ORAL SYRINGE PO SCH (23:20)
[2021-02-08] MEDS: Artificial Tears SOLN 15 ML BOTTLE BOTH EYES SCH ×7 (00:58→23:38)
[2021-02-08] MEDS: Insulin LISPRO 300 UNITS/3 ML VIAL SUBQ SCH ×7 (00:58→23:37)
[2021-02-08] MEDS: Vancomycin 1,250 MG/262.5 ML IV.SOLN IVPB SCH ×2 (02:43→15:07)
[2021-02-08] MEDS: FentaNYL (PF) 1,000 MCG/100 ML IV.SOLN IVC SCH ×4 (03:02→23:51)
[2021-02-08] MEDS: Ipratropium/Albuterol Neb 3 ML IH SCH ×6 (03:36→23:29)
[2021-02-08] MEDS: Amiodarone Premix 360 MG/200 ML BAG IVC SCH ×2 (03:46→14:29)
[2021-02-08 03:57] LABS: ABG Base Excess 10 mEq/L (-2 to 3); ABG HCO3 37 mEq/L (21-27); ABG Oxygen Saturation 97 % (95-98); ABG PCO2 60 mmHg (35-45); ABG PH 7.39 pH Units (7.32-7.45); ABG PO2 93 mmHg (85-104); ABG TCO2 39 mEq/L (20-26); Blood Gas Modality ASSIST CONTROL; Blood Gas VT 420 cc
[2021-02-08 05:09] LABS: Basophils % 0.1 %; Mean Platelet Volume 10.4 fL (9.4-12.4)
[2021-02-08 05:10] LABS: Hematocrit 35.4 % (35.3-44.9); Hemoglobin 10.7 g/dL (11.5-15.4); Immature Granulocytes % 0.8 % (0-4); Lymphocytes # 0.4 K/mcL (0.6-4.6); Lymphocytes % 2.2 %; Mean Corpuscular HGB Conc 30.2 g/dL (31.6-35.5); Mean Corpuscular Hemoglobin 27.4 pg (28.0-33.3); Mean Corpuscular Volume 90.8 fL (83.0-100.0); Monocytes # 0.7 K/mcL (0.0-1.3); Monocytes % 4.3 %; Neutrophils # 15.4 K/mcL (1.6-8.9); Platelet Count 271 K/mcL (140-400); Red Cell Distribution Width 18.9 % (11.5-14.5); Segmented Neutrophils % 92.6 %; White Blood Count 16.6 K/mcL (4.3-11.1)
[2021-02-08 05:20] LABS: INR 1.4; Prothrombin Time 15.3 Seconds (9.4-12.1)
[2021-02-08 05:25] LABS: Alanine Aminotransferase 54 Units/L (7-52); Albumin 2.6 g/dL (3.5-5.7); Alkaline Phosphatase 67 Units/L (34-104); Aspartate Amino Transferase 22 Units/L (13-39); BUN/Creatinine Ratio 52 (6-26); Bilirubin,Total 0.7 mg/dL (0.3-1.0); Blood Urea Nitrogen 25 mg/dL (8-23); Calcium 7.6 mg/dL (8.6-10.3); Carbon Dioxide 31 mEq/L (23-29); Chloride 102 mEq/L (98-107); Globulin 2.6 g/dL (2.4-3.5); Glucose 349 mg/dL (70-105); Osmolality,Calculated 310 (280-300); Potassium 3.1 mEq/L (3.5-5.1); Sodium 141 mEq/L (136-145); Total Protein 5.2 g/dL (6.4-8.9); eGFR For African Americans > 60 (> 60); eGFR For Non-African Americans > 60 (> 60)
[2021-02-08 05:33] LABS: Heparin anti-factor XA UFH 0.71 IU/mL (0.30-0.70)
[2021-02-08] MEDS: Budesonide/Formoterol 160/4.5 1 PUFF INH IH SCH (07:57)
[2021-02-08] MEDS: Chlorhexidine Rinse 15 ML MOUTHWASH MM SCH ×2 (09:11→19:42)
[2021-02-08] MEDS: Pantoprazole 40 MG VIAL IVP SCH (09:11)
[2021-02-08] MEDS: Furosemide 20 MG/2 ML VIAL IVP SCH ×2 (09:12→19:44)
[2021-02-08] MEDS: Cholecalciferol (D-3) 1,000 UNIT (25MCG) TABLET PO SCH (09:12)
[2021-02-08] MEDS: Multivitamin Liquid 15 ML UDC GTUBE SCH (09:12)
[2021-02-08] MEDS: MethylPREDNISolone 40 MG/ML VIAL IVP SCH ×2 (09:12→19:43)
[2021-02-08] MEDS: Gabapentin 300 MG CAPSULE PO SCH ×2 (09:12→19:43)
[2021-02-08] MEDS: Aspirin 81 MG TAB.CHEW GTUBE SCH (09:13)
[2021-02-08] MEDS: Nystatin POWDER 30 GM BOTTLE TP SCH ×3 (09:27→19:43)
[2021-02-08] MEDS: Nystatin Cream 15 GM TUBE TP SCH ×3 (09:27→19:44)
[2021-02-08] MEDS: *HR* Acetylcysteine 20% 600 MG/3 ML ORAL SYRINGE PO SCH ×3 (09:27→19:48)
[2021-02-08] MEDS ORDERED: Ringers Solution, Lactated 500 ML IVC ONE (12:25)
[2021-02-08] MEDS ORDERED: *HR* Midazolam HCl 5 MG/5 ML VIAL IVP ONE (13:00)
[2021-02-08] MEDS: Midazolam HCl 50 MG/100 ML IV.SOLN IVC SCH (13:33)
[2021-02-08 13:38] LABS: Troponin I 0.04 ng/mL (< 0.04)
[2021-02-08] MEDS: Dexmedetomidine HCl 400 MCG/100 ML MLS IVC SCH (15:09)
[2021-02-08] MEDS: Norepinephrine 4 MG/254 ML IV.SOLN IVC SCH (15:59)
[2021-02-09] MEDS: Vancomycin 1,250 MG/262.5 ML IV.SOLN IVPB SCH (01:30)
[2021-02-09] MEDS: Amiodarone Premix 360 MG/200 ML BAG IVC SCH ×2 (03:13→15:06)
[2021-02-09] MEDS: Ipratropium/Albuterol Neb 3 ML IH SCH ×6 (03:43→23:40)
[2021-02-09 04:05] LABS: ABG Base Excess 6 mEq/L (-2 to 3); ABG HCO3 34 mEq/L (21-27); ABG Oxygen Saturation 92 % (95-98); ABG PCO2 63 mmHg (35-45); ABG PH 7.34 pH Units (7.32-7.45); ABG PO2 71 mmHg (85-104); ABG TCO2 36 mEq/L (20-26); Blood Gas Modality ASSIST CONTROL; Blood Gas VT 420 cc
[2021-02-09] MEDS: Midazolam HCl 50 MG/100 ML IV.SOLN IVC SCH (04:22)
[2021-02-09] MEDS: Artificial Tears SOLN 15 ML BOTTLE BOTH EYES SCH ×5 (04:22→20:32)
[2021-02-09] MEDS: Insulin LISPRO 300 UNITS/3 ML VIAL SUBQ SCH ×5 (04:22→20:32)
[2021-02-09] MEDS: Norepinephrine 4 MG/254 ML IV.SOLN IVC SCH ×3 (04:32→14:18)
[2021-02-09 05:00] LABS: VBG Ionized Calcium 1.19 mmol/L (1.15-1.35)
[2021-02-09 05:04] LABS: Basophils % 0.1 %
[2021-02-09 05:05] LABS: Hematocrit 37.1 % (35.3-44.9); Immature Granulocytes % 0.6 % (0-4); Lymphocytes # 0.4 K/mcL (0.6-4.6); Lymphocytes % 2.5 %; Mean Corpuscular HGB Conc 29.6 g/dL (31.6-35.5); Mean Corpuscular Hemoglobin 27.4 pg (28.0-33.3); Mean Corpuscular Volume 92.3 fL (83.0-100.0); Mean Platelet Volume 10.1 fL (9.4-12.4); Monocytes # 0.4 K/mcL (0.0-1.3); Monocytes % 2.5 %; Neutrophils # 15.2 K/mcL (1.6-8.9); Platelet Count 262 K/mcL (140-400); Red Blood Count 4.02 M/mcL (3.82-4.97); Red Cell Distribution Width 18.9 % (11.5-14.5); Segmented Neutrophils % 94.3 %; White Blood Count 16.1 K/mcL (4.3-11.1)
[2021-02-09 05:16] LABS: INR 1.1
[2021-02-09 05:21] LABS: BUN/Creatinine Ratio 57 (6-26); Blood Urea Nitrogen 34 mg/dL (8-23); Calcium 8.1 mg/dL (8.6-10.3); Carbon Dioxide 30 mEq/L (23-29); Chloride 102 mEq/L (98-107); Glucose 285 mg/dL (70-105); Osmolality,Calculated 308 (280-300); Potassium 3.6 mEq/L (3.5-5.1); Sodium 140 mEq/L (136-145); eGFR For African Americans > 60 (> 60); eGFR For Non-African Americans > 60 (> 60)
[2021-02-09] MEDS: FentaNYL (PF) 1,000 MCG/100 ML IV.SOLN IVC SCH ×2 (06:55→17:07)
[2021-02-09] MEDS: Budesonide/Formoterol 160/4.5 1 PUFF INH IH SCH (07:32)
[2021-02-09] MEDS: Aspirin 81 MG TAB.CHEW GTUBE SCH (07:58)
[2021-02-09] MEDS: Nystatin POWDER 30 GM BOTTLE TP SCH ×2 (07:58→20:58)
[2021-02-09] MEDS: Nystatin Cream 15 GM TUBE TP SCH ×2 (07:58→20:59)
[2021-02-09] MEDS: MethylPREDNISolone 40 MG/ML VIAL IVP SCH (07:58)
[2021-02-09] MEDS: Furosemide 20 MG/2 ML VIAL IVP SCH ×2 (07:59→20:31)
[2021-02-09] MEDS: Pantoprazole 40 MG VIAL IVP SCH (07:59)
[2021-02-09] MEDS: *HR* Acetylcysteine 20% 600 MG/3 ML ORAL SYRINGE PO SCH (07:59)
[2021-02-09] MEDS: Gabapentin 300 MG CAPSULE PO SCH ×2 (07:59→20:31)
[2021-02-09] MEDS: Chlorhexidine Rinse 15 ML MOUTHWASH MM SCH ×2 (07:59→20:31)
[2021-02-09] MEDS: Cholecalciferol (D-3) 1,000 UNIT (25MCG) TABLET PO SCH (08:00)
[2021-02-09 08:01] LABS: Magnesium 1.9 mg/dL (1.6-2.6); Phosphorous 3.3 mg/dL (2.7-4.5)
[2021-02-09] MEDS: Dexmedetomidine HCl 400 MCG/100 ML MLS IVC SCH (09:37)
[2021-02-09] MEDS: Multivitamin Liquid 15 ML UDC GTUBE SCH (10:36)
[2021-02-09] MEDS: Docusate Oral Soln 100 MG/10 ML UDC GTUBE SCH ×2 (10:36→20:31)
[2021-02-09] MEDS ORDERED: *HR* LORazepam 2 MG/ML VIAL IVP PRN (14:32)
[2021-02-09] MEDS: Acetylcysteine 10% 2 ML INHSOL IH SCH ×2 (16:18→19:49)
[2021-02-09] MEDS: Insulin DETEMIR 100 UNIT/ML X5UNITS SUBQ SCH (20:32)
[2021-02-09] MEDS: levETIRAcetam 750 MG in 0.9 % Sodium Chloride 100 ML IVPB SCH (20:34)
[2021-02-10] MEDS: Artificial Tears SOLN 15 ML BOTTLE BOTH EYES SCH ×6 (00:23→20:17)
[2021-02-10] MEDS: Insulin LISPRO 300 UNITS/3 ML VIAL SUBQ SCH ×6 (00:23→20:19)
[2021-02-10] MEDS: Ipratropium/Albuterol Neb 3 ML IH SCH ×6 (03:22→23:23)
[2021-02-10] MEDS: Acetylcysteine 10% 2 ML INHSOL IH SCH ×4 (03:22→20:11)
[2021-02-10 03:37] LABS: Basophils % 0.1 %; Eosinophils % 0.1 %; Hematocrit 35.8 % (35.3-44.9); Hemoglobin 10.5 g/dL (11.5-15.4); Immature Granulocytes % 0.6 % (0-4); Lymphocytes # 0.8 K/mcL (0.6-4.6); Lymphocytes % 6.9 %; Mean Corpuscular HGB Conc 29.3 g/dL (31.6-35.5); Mean Corpuscular Hemoglobin 27.6 pg (28.0-33.3); Mean Corpuscular Volume 94.2 fL (83.0-100.0); Mean Platelet Volume 10.4 fL (9.4-12.4); Monocytes # 0.8 K/mcL (0.0-1.3); Monocytes % 7.2 %; Neutrophils # 9.7 K/mcL (1.6-8.9); Platelet Count 181 K/mcL (140-400); Red Cell Distribution Width 19.5 % (11.5-14.5); Segmented Neutrophils % 85.1 %; White Blood Count 11.4 K/mcL (4.3-11.1)
[2021-02-10 03:41] LABS: VBG Ionized Calcium 1.22 mmol/L (1.15-1.35)
[2021-02-10 03:47] LABS: INR 1.1; Prothrombin Time 12.1 Seconds (9.4-12.1)
[2021-02-10 03:56] LABS: Alanine Aminotransferase 40 Units/L (7-52); Albumin 2.7 g/dL (3.5-5.7); Albumin/Globulin Ratio 0.9 (1.1-2.2); Alkaline Phosphatase 68 Units/L (34-104); Aspartate Amino Transferase 9 Units/L (13-39); BUN/Creatinine Ratio 80 (6-26); Bilirubin,Total 0.6 mg/dL (0.3-1.0); Blood Urea Nitrogen 49 mg/dL (8-23); Calcium 8.6 mg/dL (8.6-10.3); Carbon Dioxide 35 mEq/L (23-29); Chloride 104 mEq/L (98-107); Globulin 2.9 g/dL (2.4-3.5); Glucose 238 mg/dL (70-105); Osmolality,Calculated 317 (280-300); Phosphorous 2.7 mg/dL (2.7-4.5); Potassium 3.1 mEq/L (3.5-5.1); Sodium 143 mEq/L (136-145); Total Protein 5.6 g/dL (6.4-8.9); eGFR For African Americans > 60 (> 60); eGFR For Non-African Americans > 60 (> 60)
[2021-02-10] MEDS: Midazolam HCl 50 MG/100 ML IV.SOLN IVC SCH ×2 (03:58→20:34)
[2021-02-10] MEDS: Amiodarone Premix 360 MG/200 ML BAG IVC SCH ×2 (03:59→15:00)
[2021-02-10] MEDS: FentaNYL (PF) 1,000 MCG/100 ML IV.SOLN IVC SCH ×2 (04:48→15:31)
[2021-02-10 04:58] LABS: ABG Base Excess 6 mEq/L (-2 to 3); ABG HCO3 35 mEq/L (21-27); ABG Oxygen Saturation 84 % (95-98); ABG PCO2 71 mmHg (35-45); ABG PH 7.29 pH Units (7.32-7.45); ABG PO2 57 mmHg (85-104); ABG TCO2 37 mEq/L (20-26); Blood Gas VT 420 cc
[2021-02-10] MEDS: Potassium Chloride 40 MEQ/200 ML BAG IVPB PRN (05:34)
[2021-02-10] MEDS: Dexmedetomidine HCl 400 MCG/100 ML MLS IVC SCH ×3 (07:06→23:56)
[2021-02-10] MEDS: Norepinephrine 4 MG/254 ML IV.SOLN IVC SCH ×3 (07:06→17:00)
[2021-02-10] MEDS: Gabapentin 300 MG CAPSULE PO SCH ×2 (07:40→20:18)
[2021-02-10] MEDS: Cholecalciferol (D-3) 1,000 UNIT (25MCG) TABLET PO SCH (07:40)
[2021-02-10] MEDS: Aspirin 81 MG TAB.CHEW GTUBE SCH (07:40)
[2021-02-10] MEDS: Furosemide 20 MG/2 ML VIAL IVP SCH ×2 (07:40→20:18)
[2021-02-10] MEDS: MethylPREDNISolone 40 MG/ML VIAL IVP SCH (07:40)
[2021-02-10] MEDS: Chlorhexidine Rinse 15 ML MOUTHWASH MM SCH ×2 (07:40→20:17)
[2021-02-10] MEDS: Docusate Oral Soln 100 MG/10 ML UDC GTUBE SCH ×2 (07:40→20:18)
[2021-02-10] MEDS: Pantoprazole 40 MG VIAL IVP SCH (07:40)
[2021-02-10] MEDS: Nystatin Cream 15 GM TUBE TP SCH ×2 (07:41→20:18)
[2021-02-10] MEDS: Nystatin POWDER 30 GM BOTTLE TP SCH ×2 (07:41→20:18)
[2021-02-10] MEDS: levETIRAcetam 750 MG in 0.9 % Sodium Chloride 100 ML IVPB SCH ×2 (07:44→20:19)
[2021-02-10] MEDS: Insulin DETEMIR 100 UNIT/ML X5UNITS SUBQ SCH ×2 (07:44→20:19)
[2021-02-10] MEDS: Budesonide/Formoterol 160/4.5 1 PUFF INH IH SCH (07:45)
[2021-02-10] MEDS: Multivitamin Liquid 15 ML UDC GTUBE SCH (09:47)
[2021-02-10 11:50] LABS: BUN/Creatinine Ratio 78 (6-26); Blood Urea Nitrogen 45 mg/dL (8-23); Calcium 8.7 mg/dL (8.6-10.3); Carbon Dioxide 35 mEq/L (23-29); Chloride 105 mEq/L (98-107); Glucose 196 mg/dL (70-105); Osmolality,Calculated 315 (280-300); Potassium 3.7 mEq/L (3.5-5.1); Sodium 144 mEq/L (136-145); eGFR For African Americans > 60 (> 60); eGFR For Non-African Americans > 60 (> 60)
[2021-02-11] MEDS: Insulin LISPRO 300 UNITS/3 ML VIAL SUBQ SCH ×7 (00:06→23:09)
[2021-02-11] MEDS: Artificial Tears SOLN 15 ML BOTTLE BOTH EYES SCH ×7 (00:06→23:09)
[2021-02-11] MEDS: FentaNYL (PF) 1,000 MCG/100 ML IV.SOLN IVC SCH ×2 (00:09→10:40)
[2021-02-11] MEDS: Amiodarone Premix 360 MG/200 ML BAG IVC SCH ×2 (03:30→15:43)
[2021-02-11] MEDS: Acetylcysteine 10% 2 ML INHSOL IH SCH ×4 (03:32→20:16)
[2021-02-11] MEDS: Ipratropium/Albuterol Neb 3 ML IH SCH ×6 (03:33→23:42)
[2021-02-11] MEDS: Dexmedetomidine HCl 400 MCG/100 ML MLS IVC SCH ×6 (03:54→23:08)
[2021-02-11 04:09] LABS: Basophils % 0.1 %; Eosinophils % 0.1 %; Hematocrit 33.8 % (35.3-44.9); Hemoglobin 10.1 g/dL (11.5-15.4); Immature Granulocytes % 0.6 % (0-4); Lymphocytes # 0.7 K/mcL (0.6-4.6); Lymphocytes % 9.2 %; Mean Corpuscular HGB Conc 29.9 g/dL (31.6-35.5); Mean Corpuscular Hemoglobin 27.7 pg (28.0-33.3); Mean Corpuscular Volume 92.9 fL (83.0-100.0); Mean Platelet Volume 9.8 fL (9.4-12.4); Monocytes # 0.4 K/mcL (0.0-1.3); Monocytes % 5.6 %; Neutrophils # 6.6 K/mcL (1.6-8.9); Platelet Count 129 K/mcL (140-400); Red Blood Count 3.64 M/mcL (3.82-4.97); Red Cell Distribution Width 19.4 % (11.5-14.5); Segmented Neutrophils % 84.4 %; White Blood Count 7.8 K/mcL (4.3-11.1)
[2021-02-11 04:20] LABS: INR 1.1; Prothrombin Time 12.4 Seconds (9.4-12.1)
[2021-02-11 04:32] LABS: Alanine Aminotransferase 34 Units/L (7-52); Albumin 2.7 g/dL (3.5-5.7); Alkaline Phosphatase 71 Units/L (34-104); Aspartate Amino Transferase 8 Units/L (13-39); BUN/Creatinine Ratio 102 (6-26); Bilirubin,Total 0.5 mg/dL (0.3-1.0); Blood Urea Nitrogen 45 mg/dL (8-23); Calcium 8.9 mg/dL (8.6-10.3); Carbon Dioxide 39 mEq/L (23-29); Chloride 103 mEq/L (98-107); Globulin 2.7 g/dL (2.4-3.5); Glucose 196 mg/dL (70-105); Osmolality,Calculated 317 (280-300); Phosphorous 2.5 mg/dL (2.7-4.5); Potassium 3.3 mEq/L (3.5-5.1); Sodium 145 mEq/L (136-145); Total Protein 5.4 g/dL (6.4-8.9); eGFR For African Americans > 60 (> 60); eGFR For Non-African Americans > 60 (> 60)
[2021-02-11 04:32] LABS: ABG Base Excess 8 mEq/L (-2 to 3); ABG HCO3 38 mEq/L (21-27); ABG Oxygen Saturation 95 % (95-98); ABG PCO2 70 mmHg (35-45); ABG PH 7.34 pH Units (7.32-7.45); ABG PO2 87 mmHg (85-104); ABG TCO2 40 mEq/L (20-26); Blood Gas VT 420 cc
[2021-02-11] MEDS: Potassium Chloride 40 MEQ/200 ML BAG IVPB PRN (05:46)
[2021-02-11] MEDS: Budesonide/Formoterol 160/4.5 1 PUFF INH IH SCH (07:23)
[2021-02-11] MEDS: Chlorhexidine Rinse 15 ML MOUTHWASH MM SCH ×2 (09:03→21:05)
[2021-02-11] MEDS: Aspirin 81 MG TAB.CHEW GTUBE SCH (09:03)
[2021-02-11] MEDS: Furosemide 20 MG/2 ML VIAL IVP SCH ×2 (09:03→21:11)
[2021-02-11] MEDS: Cholecalciferol (D-3) 1,000 UNIT (25MCG) TABLET PO SCH (09:03)
[2021-02-11] MEDS: Pantoprazole 40 MG VIAL IVP SCH (09:03)
[2021-02-11] MEDS: Docusate Oral Soln 100 MG/10 ML UDC GTUBE SCH ×2 (09:04→21:05)
[2021-02-11] MEDS: Multivitamin Liquid 15 ML UDC GTUBE SCH (09:04)
[2021-02-11] MEDS: Gabapentin 300 MG CAPSULE PO SCH ×2 (09:04→21:06)
[2021-02-11] MEDS: MethylPREDNISolone 40 MG/ML VIAL IVP SCH (09:05)
[2021-02-11] MEDS: Nystatin POWDER 30 GM BOTTLE TP SCH ×2 (09:06→21:06)
[2021-02-11] MEDS: Nystatin Cream 15 GM TUBE TP SCH ×2 (09:06→21:12)
[2021-02-11] MEDS: levETIRAcetam 750 MG in 0.9 % Sodium Chloride 100 ML IVPB SCH ×2 (09:19→21:11)
[2021-02-11] MEDS: Insulin DETEMIR 100 UNIT/ML X5UNITS SUBQ SCH ×2 (09:19→21:05)
[2021-02-11] MEDS ORDERED: Furosemide 40 MG/4 ML VIAL IVP ONE (15:49)
[2021-02-11] MEDS ORDERED: Furosemide 40 MG/4 ML VIAL ONE (15:52)
[2021-02-11] MEDS: Norepinephrine 4 MG/254 ML IV.SOLN IVC SCH ×4 (19:22→23:09)
[2021-02-11] MEDS: Midazolam HCl 50 MG/100 ML IV.SOLN IVC SCH ×2 (19:24→23:09)
[2021-02-11] MEDS: *HR* Metoprolol 5 MG/5 ML VIAL IVP PRN (21:15)
[2021-02-11 23:32] LABS: VBG Ionized Calcium 1.27 mmol/L (1.15-1.35)
[2021-02-12] MEDS: Dexmedetomidine HCl 400 MCG/100 ML MLS IVC SCH ×6 (03:10→23:45)
[2021-02-12] MEDS: Amiodarone Premix 360 MG/200 ML BAG IVC SCH ×2 (03:11→15:22)
[2021-02-12] MEDS: Insulin LISPRO 300 UNITS/3 ML VIAL SUBQ SCH ×5 (03:30→20:00)
[2021-02-12] MEDS: Artificial Tears SOLN 15 ML BOTTLE BOTH EYES SCH ×5 (03:30→20:00)
[2021-02-12] MEDS: Ipratropium/Albuterol Neb 3 ML IH SCH ×5 (04:17→20:27)
[2021-02-12] MEDS: Acetylcysteine 10% 2 ML INHSOL IH SCH ×3 (04:17→15:47)
[2021-02-12 05:21] LABS: Alanine Aminotransferase 34 Units/L (7-52); Albumin 2.7 g/dL (3.5-5.7); Alkaline Phosphatase 76 Units/L (34-104); Aspartate Amino Transferase 12 Units/L (13-39); BUN/Creatinine Ratio 92 (6-26); Bilirubin,Total 0.8 mg/dL (0.3-1.0); Blood Urea Nitrogen 36 mg/dL (8-23); Calcium 9.2 mg/dL (8.6-10.3); Carbon Dioxide 42 mEq/L (23-29); Chloride 98 mEq/L (98-107); Globulin 2.8 g/dL (2.4-3.5); Glucose 118 mg/dL (70-105); Magnesium 1.6 mg/dL (1.6-2.6); Osmolality,Calculated 309 (280-300); Phosphorous 2.4 mg/dL (2.7-4.5); Potassium 3.7 mEq/L (3.5-5.1); Sodium 145 mEq/L (136-145); Total Protein 5.5 g/dL (6.4-8.9); eGFR For African Americans > 60 (> 60); eGFR For Non-African Americans > 60 (> 60)
[2021-02-12 05:36] LABS: INR 1.2
[2021-02-12] MEDS: Potassium Chloride 40 MEQ/200 ML BAG IVPB PRN (05:50)
[2021-02-12] MEDS: *HR* Metoprolol 5 MG/5 ML VIAL IVP PRN ×2 (06:14→08:34)
[2021-02-12 06:40] LABS: Eosinophils % 0.1 %; Hemoglobin 10.4 g/dL (11.5-15.4); Immature Granulocytes % 0.4 % (0-4); Lymphocytes # 0.7 K/mcL (0.6-4.6); Lymphocytes % 9.1 %; Mean Corpuscular HGB Conc 29.7 g/dL (31.6-35.5); Mean Corpuscular Hemoglobin 27.2 pg (28.0-33.3); Mean Corpuscular Volume 91.6 fL (83.0-100.0); Mean Platelet Volume 10.9 fL (9.4-12.4); Monocytes # 0.5 K/mcL (0.0-1.3); Monocytes % 6.7 %; Neutrophils # 6.6 K/mcL (1.6-8.9); Platelet Count 143 K/mcL (140-400); Red Blood Count 3.82 M/mcL (3.82-4.97); Red Cell Distribution Width 19.4 % (11.5-14.5); Segmented Neutrophils % 83.7 %; White Blood Count 7.9 K/mcL (4.3-11.1)
[2021-02-12 06:43] LABS: ABG Base Excess 11 mEq/L (-2 to 3); ABG HCO3 37 mEq/L (21-27); ABG Oxygen Saturation 87 % (95-98); ABG PCO2 53 mmHg (35-45); ABG PH 7.44 pH Units (7.32-7.45); ABG PO2 52 mmHg (85-104); ABG TCO2 38 mEq/L (20-26); Blood Gas Modality BiLevel; Blood Gas Pressure Support 6 cm H2O
[2021-02-12] MEDS: Insulin DETEMIR 100 UNIT/ML X5UNITS SUBQ SCH ×2 (08:04→20:01)
[2021-02-12] MEDS: Aspirin 81 MG TAB.CHEW GTUBE SCH (08:04)
[2021-02-12] MEDS: Chlorhexidine Rinse 15 ML MOUTHWASH MM SCH ×2 (08:04→20:00)
[2021-02-12] MEDS: Docusate Oral Soln 100 MG/10 ML UDC GTUBE SCH ×2 (08:04→20:00)
[2021-02-12] MEDS: Cholecalciferol (D-3) 1,000 UNIT (25MCG) TABLET PO SCH (08:05)
[2021-02-12] MEDS: Gabapentin 300 MG CAPSULE PO SCH ×2 (08:05→20:01)
[2021-02-12] MEDS: Multivitamin Liquid 15 ML UDC GTUBE SCH (08:06)
[2021-02-12] MEDS: Budesonide/Formoterol 160/4.5 1 PUFF INH IH SCH (08:10)
[2021-02-12] MEDS: Nystatin Cream 15 GM TUBE TP SCH ×2 (08:13→20:02)
[2021-02-12] MEDS: Nystatin POWDER 30 GM BOTTLE TP SCH ×2 (08:13→20:03)
[2021-02-12] MEDS: Furosemide 20 MG/2 ML VIAL IVP SCH (08:14)
[2021-02-12] MEDS: MethylPREDNISolone 40 MG/ML VIAL IVP SCH (08:14)
[2021-02-12] MEDS ORDERED: *HR* LORazepam 2 MG/ML VIAL IVP ONE (08:28)
[2021-02-12 08:50] LABS: ABG Base Excess 14 mEq/L (-2 to 3); ABG HCO3 39 mEq/L (21-27); ABG Oxygen Saturation 95 % (95-98); ABG PCO2 48 mmHg (35-45); ABG PH 7.51 pH Units (7.32-7.45); ABG PO2 69 mmHg (85-104); ABG TCO2 40 mEq/L (20-26); Blood Gas VT 550 cc
[2021-02-12] MEDS: levETIRAcetam 750 MG in 0.9 % Sodium Chloride 100 ML IVPB SCH ×2 (10:01→20:01)
[2021-02-12] MEDS ORDERED: Morphine Sulfate 2 MG/ML SYRINGE IVP PRN (15:22)
[2021-02-12] MEDS: *HR* LORazepam 2 MG/ML VIAL IVP PRN ×2 (15:43→20:09)
[2021-02-12] MEDS: Midazolam HCl 50 MG/100 ML IV.SOLN IVC SCH (19:36)
[2021-02-12] MEDS: Norepinephrine 4 MG/254 ML IV.SOLN IVC SCH ×2 (19:36→19:38)
[2021-02-13] MEDS: Ipratropium/Albuterol Neb 3 ML IH SCH ×7 (00:11→23:45)
[2021-02-13] MEDS: Insulin LISPRO 300 UNITS/3 ML VIAL SUBQ SCH ×5 (00:24→20:15)
[2021-02-13] MEDS: Artificial Tears SOLN 15 ML BOTTLE BOTH EYES SCH ×5 (00:24→19:43)
[2021-02-13] MEDS: Norepinephrine 4 MG/254 ML IV.SOLN IVC SCH (00:25)
[2021-02-13] MEDS: Amiodarone Premix 360 MG/200 ML BAG IVC SCH ×3 (01:14→19:44)
[2021-02-13] MEDS: Dexmedetomidine HCl 400 MCG/100 ML MLS IVC SCH ×6 (01:15→17:44)
[2021-02-13 04:18] LABS: Eosinophils % 0.1 %; Hematocrit 33.2 % (35.3-44.9); Hemoglobin 10.1 g/dL (11.5-15.4); Immature Granulocytes % 0.3 % (0-4); Lymphocytes # 0.5 K/mcL (0.6-4.6); Lymphocytes % 7.4 %; Mean Corpuscular HGB Conc 30.4 g/dL (31.6-35.5); Mean Corpuscular Hemoglobin 27.5 pg (28.0-33.3); Mean Corpuscular Volume 90.5 fL (83.0-100.0); Mean Platelet Volume 10.4 fL (9.4-12.4); Monocytes # 0.4 K/mcL (0.0-1.3); Monocytes % 5.2 %; Neutrophils # 6.2 K/mcL (1.6-8.9); Platelet Count 129 K/mcL (140-400); Red Blood Count 3.67 M/mcL (3.82-4.97); Red Cell Distribution Width 19.4 % (11.5-14.5); White Blood Count 7.2 K/mcL (4.3-11.1)
[2021-02-13 04:26] LABS: INR 1.2; Prothrombin Time 13.9 Seconds (9.4-12.1)
[2021-02-13 04:30] LABS: VBG Ionized Calcium 1.27 mmol/L (1.15-1.35)
[2021-02-13 04:37] LABS: Alanine Aminotransferase 25 Units/L (7-52); Albumin 2.5 g/dL (3.5-5.7); Albumin/Globulin Ratio 0.9 (1.1-2.2); Alkaline Phosphatase 67 Units/L (34-104); Aspartate Amino Transferase 8 Units/L (13-39); BUN/Creatinine Ratio 100 (6-26); Bilirubin,Total 0.8 mg/dL (0.3-1.0); Blood Urea Nitrogen 34 mg/dL (8-23); Calcium 8.8 mg/dL (8.6-10.3); Carbon Dioxide 43 mEq/L (23-29); Chloride 100 mEq/L (98-107); Globulin 2.9 g/dL (2.4-3.5); Glucose 140 mg/dL (70-105); Magnesium 1.8 mg/dL (1.6-2.6); Osmolality,Calculated 310 (280-300); Phosphorous 2.6 mg/dL (2.7-4.5); Potassium 3.9 mEq/L (3.5-5.1); Sodium 145 mEq/L (136-145); Total Protein 5.4 g/dL (6.4-8.9); eGFR For African Americans > 60 (> 60); eGFR For Non-African Americans > 60 (> 60)
[2021-02-13] MEDS: *HR* LORazepam 2 MG/ML VIAL IVP PRN ×3 (04:49→19:43)
[2021-02-13] MEDS: Potassium Chloride 40 MEQ/200 ML BAG IVPB PRN ×2 (06:31→07:21)
[2021-02-13] MEDS: Docusate Oral Soln 100 MG/10 ML UDC GTUBE SCH ×2 (07:28→20:06)
[2021-02-13] MEDS: Gabapentin 300 MG CAPSULE PO SCH ×2 (07:28→19:51)
[2021-02-13] MEDS: Chlorhexidine Rinse 15 ML MOUTHWASH MM SCH ×2 (07:28→19:51)
[2021-02-13] MEDS: Aspirin 81 MG TAB.CHEW GTUBE SCH (07:28)
[2021-02-13] MEDS: Multivitamin Liquid 15 ML UDC GTUBE SCH (07:29)
[2021-02-13] MEDS: Cholecalciferol (D-3) 1,000 UNIT (25MCG) TABLET PO SCH (07:29)
[2021-02-13] MEDS: Budesonide/Formoterol 160/4.5 1 PUFF INH IH SCH (07:40)
[2021-02-13] MEDS: MethylPREDNISolone 40 MG/ML VIAL IVP SCH (08:40)
[2021-02-13] MEDS: Nystatin Cream 15 GM TUBE TP SCH ×2 (08:41→19:43)
[2021-02-13] MEDS: Nystatin POWDER 30 GM BOTTLE TP SCH ×2 (08:41→20:16)
[2021-02-13] MEDS: Insulin DETEMIR 100 UNIT/ML X5UNITS SUBQ SCH ×2 (08:44→20:16)
[2021-02-13] MEDS ORDERED: Furosemide 40 MG/4 ML VIAL IVP ONE (09:40)
[2021-02-13] MEDS: levETIRAcetam 750 MG in 0.9 % Sodium Chloride 100 ML IVPB SCH ×2 (09:57→22:49)
[2021-02-13] MEDS ORDERED: D5% in Water 1,000 ML IVC PRN (16:08)
[2021-02-13] MEDS ORDERED: Dextrose Gel 15 GM/37.5 ML TUBE PO PRN ×2 (16:08)
[2021-02-13] MEDS ORDERED: *HR* Heparin 5,000 UNIT/ML VIAL IVP PRN ×2 (16:08)
[2021-02-13] MEDS ORDERED: Naloxone 0.4 MG/ML INJ IVP PRN (16:08)
[2021-02-13] MEDS ORDERED: Artificial Tears SOLN 15 ML BOTTLE BOTH EYES PRN (16:08)
[2021-02-13] MEDS ORDERED: Morphine Sulfate 2 MG/ML SYRINGE IVP PRN (16:08)
[2021-02-13] MEDS ORDERED: Acetaminophen 325 MG TABLET PO PRN (16:08)
[2021-02-14] MEDS: Insulin LISPRO 300 UNITS/3 ML VIAL SUBQ SCH ×6 (00:18→20:04)
[2021-02-14] MEDS: Artificial Tears SOLN 15 ML BOTTLE BOTH EYES SCH ×6 (00:19→20:06)
[2021-02-14] MEDS: Amiodarone Premix 360 MG/200 ML BAG IVC SCH ×2 (00:19→12:04)
[2021-02-14] MEDS: Dexmedetomidine HCl 400 MCG/100 ML MLS IVC SCH ×7 (00:46→20:54)
[2021-02-14] MEDS: *HR* LORazepam 2 MG/ML VIAL IVP PRN (02:00)
[2021-02-14 03:05] LABS: VBG Ionized Calcium 1.19 mmol/L (1.15-1.35)
[2021-02-14] MEDS: Ipratropium/Albuterol Neb 3 ML IH SCH ×6 (03:44→23:16)
[2021-02-14] MEDS: *HR* Dextrose 50 % in Water (Syg) 50 ML SYRINGE IVP PRN (06:20)
[2021-02-14] MEDS: Gabapentin 300 MG CAPSULE PO SCH ×2 (07:24→19:46)
[2021-02-14] MEDS: Aspirin 81 MG TAB.CHEW GTUBE SCH (07:24)
[2021-02-14] MEDS: Chlorhexidine Rinse 15 ML MOUTHWASH MM SCH ×2 (07:24→19:46)
[2021-02-14] MEDS: Docusate Oral Soln 100 MG/10 ML UDC GTUBE SCH ×2 (07:24→19:46)
[2021-02-14] MEDS: Multivitamin Liquid 15 ML UDC GTUBE SCH (07:26)
[2021-02-14] MEDS: Cholecalciferol (D-3) 1,000 UNIT (25MCG) TABLET PO SCH (07:26)
[2021-02-14] MEDS: levETIRAcetam 750 MG in 0.9 % Sodium Chloride 100 ML IVPB SCH ×2 (07:41→20:03)
[2021-02-14] MEDS: Nystatin POWDER 30 GM BOTTLE TP SCH ×2 (07:42→20:06)
[2021-02-14] MEDS: MethylPREDNISolone 40 MG/ML VIAL IVP SCH (07:42)
[2021-02-14] MEDS: Nystatin Cream 15 GM TUBE TP SCH ×2 (07:43→20:06)
[2021-02-14] MEDS: Insulin DETEMIR 100 UNIT/ML X5UNITS SUBQ SCH ×2 (07:43→20:03)
[2021-02-14] MEDS: Budesonide/Formoterol 160/4.5 1 PUFF INH IH SCH (07:44)
[2021-02-14] MEDS ORDERED: Acetaminophen IV 500 MG/50 ML BAG IVPB ONE (17:26)
[2021-02-15] MEDS: Amiodarone Premix 360 MG/200 ML BAG IVC SCH ×2 (00:31→12:49)
[2021-02-15] MEDS: Artificial Tears SOLN 15 ML BOTTLE BOTH EYES SCH ×7 (00:32→23:22)
[2021-02-15] MEDS: Insulin LISPRO 300 UNITS/3 ML VIAL SUBQ SCH ×6 (00:32→20:12)
[2021-02-15] MEDS: Dexmedetomidine HCl 400 MCG/100 ML MLS IVC SCH ×7 (00:59→21:39)
[2021-02-15] MEDS: Ipratropium/Albuterol Neb 3 ML IH SCH ×6 (03:56→20:11)
[2021-02-15] MEDS ORDERED: Acetaminophen IV 500 MG/50 ML BAG IVPB ONE ×2 (07:41→14:02)
[2021-02-15] MEDS: Budesonide/Formoterol 160/4.5 1 PUFF INH IH SCH (07:41)
[2021-02-15] MEDS ORDERED: Acetaminophen 650 MG RECTAL SUPP RC PRN (08:09)
[2021-02-15] MEDS: Aspirin 81 MG TAB.CHEW GTUBE SCH (09:08)
[2021-02-15] MEDS: Chlorhexidine Rinse 15 ML MOUTHWASH MM SCH ×2 (09:09→20:12)
[2021-02-15] MEDS: Docusate Oral Soln 100 MG/10 ML UDC GTUBE SCH ×2 (09:09→20:12)
[2021-02-15] MEDS: MethylPREDNISolone 40 MG/ML VIAL IVP SCH (09:11)
[2021-02-15] MEDS: Nystatin Cream 15 GM TUBE TP SCH ×2 (09:13→20:21)
[2021-02-15] MEDS: Nystatin POWDER 30 GM BOTTLE TP SCH ×2 (09:14→20:21)
[2021-02-15] MEDS: Insulin DETEMIR 100 UNIT/ML X5UNITS SUBQ SCH ×2 (09:14→20:13)
[2021-02-15] MEDS: Gabapentin 300 MG CAPSULE PO SCH ×2 (09:14→20:14)
[2021-02-15] MEDS: Cholecalciferol (D-3) 1,000 UNIT (25MCG) TABLET PO SCH (09:15)
[2021-02-15] MEDS: Multivitamin Liquid 15 ML UDC GTUBE SCH (09:15)
[2021-02-15] MEDS: levETIRAcetam 750 MG in 0.9 % Sodium Chloride 100 ML IVPB SCH ×3 (09:20→20:20)
[2021-02-15] MEDS: *HR* Metoprolol 5 MG/5 ML VIAL IVP PRN ×2 (11:52→17:24)
[2021-02-15] MEDS ORDERED: *HR* Metoprolol 5 MG/5 ML VIAL IVP ONE (14:02)
[2021-02-15 14:29] LABS: Basophils % 0.1 %; Immature Granulocytes % 0.6 % (0-4); Lymphocytes # 0.4 K/mcL (0.6-4.6); Lymphocytes % 4.8 %; Mean Corpuscular HGB Conc 29.8 g/dL (31.6-35.5); Mean Corpuscular Volume 90.7 fL (83.0-100.0); Mean Platelet Volume 9.6 fL (9.4-12.4); Monocytes # 0.3 K/mcL (0.0-1.3); Monocytes % 3.5 %; Neutrophils # 7.9 K/mcL (1.6-8.9); Platelet Count 118 K/mcL (140-400); Red Blood Count 4.52 M/mcL (3.82-4.97); White Blood Count 8.6 K/mcL (4.3-11.1)
[2021-02-15 14:49] LABS: BUN/Creatinine Ratio 53 (6-26); Blood Urea Nitrogen 24 mg/dL (8-23); Calcium 8.8 mg/dL (8.6-10.3); Carbon Dioxide 40 mEq/L (23-29); Chloride 100 mEq/L (98-107); Glucose 151 mg/dL (70-105); Osmolality,Calculated 303 (280-300); Sodium 143 mEq/L (136-145); eGFR For African Americans > 60 (> 60); eGFR For Non-African Americans > 60 (> 60)
[2021-02-15 15:38] LABS: Hemoglobin 12.2 g/dL (11.5-15.4)
[2021-02-15] MEDS ORDERED: *HR* Labetalol 20 MG/4 ML SYRINGE IVP PRN (15:45)
[2021-02-15] MEDS: *HR* LORazepam 2 MG/ML VIAL IVP PRN (17:36)
[2021-02-15] MEDS: Heparin 25,000UNIT/250ML 1/2NS 25,000 UNIT/250 ML IV.SOLN IVC SCH (22:19)
[2021-02-16] MEDS: Ipratropium/Albuterol Neb 3 ML IH SCH ×6 (00:16→20:46)
[2021-02-16] MEDS: Amiodarone Premix 360 MG/200 ML BAG IVC SCH ×2 (00:23→12:34)
[2021-02-16] MEDS: Dexmedetomidine HCl 400 MCG/100 ML MLS IVC SCH ×5 (01:46→20:03)
[2021-02-16] MEDS: Artificial Tears SOLN 15 ML BOTTLE BOTH EYES SCH ×5 (03:58→19:37)
[2021-02-16] MEDS: *HR* LORazepam 2 MG/ML VIAL IVP PRN ×2 (04:09→13:40)
[2021-02-16 04:40] LABS: Basophils % 0.1 %; Eosinophils % 0.1 %; Hematocrit 39.5 % (35.3-44.9); Hemoglobin 11.5 g/dL (11.5-15.4); Immature Granulocytes % 0.6 % (0-4); Lymphocytes # 0.9 K/mcL (0.6-4.6); Lymphocytes % 13.1 %; Mean Corpuscular HGB Conc 29.1 g/dL (31.6-35.5); Mean Corpuscular Hemoglobin 26.7 pg (28.0-33.3); Mean Corpuscular Volume 91.6 fL (83.0-100.0); Mean Platelet Volume 10.9 fL (9.4-12.4); Monocytes # 0.6 K/mcL (0.0-1.3); Monocytes % 7.9 %; Neutrophils # 5.6 K/mcL (1.6-8.9); Platelet Count 115 K/mcL (140-400); Red Blood Count 4.31 M/mcL (3.82-4.97); Red Cell Distribution Width 18.7 % (11.5-14.5); Segmented Neutrophils % 78.2 %; White Blood Count 7.2 K/mcL (4.3-11.1)
[2021-02-16 04:46] LABS: BUN/Creatinine Ratio 58 (6-26); Blood Urea Nitrogen 22 mg/dL (8-23); Calcium 8.3 mg/dL (8.6-10.3); Carbon Dioxide 34 mEq/L (23-29); Chloride 102 mEq/L (98-107); Glucose 154 mg/dL (70-105); Magnesium 1.7 mg/dL (1.6-2.6); Osmolality,Calculated 302 (280-300); Potassium 3.7 mEq/L (3.5-5.1); Sodium 143 mEq/L (136-145); eGFR For African Americans > 60 (> 60); eGFR For Non-African Americans > 60 (> 60)
[2021-02-16] MEDS: Insulin LISPRO 300 UNITS/3 ML VIAL SUBQ SCH ×7 (05:28→22:51)
[2021-02-16] MEDS: Budesonide/Formoterol 160/4.5 1 PUFF INH IH SCH (07:36)
[2021-02-16] MEDS: Nystatin POWDER 30 GM BOTTLE TP SCH ×2 (07:55→19:37)
[2021-02-16] MEDS: Nystatin Cream 15 GM TUBE TP SCH ×2 (07:55→19:37)
[2021-02-16] MEDS: Insulin DETEMIR 100 UNIT/ML X5UNITS SUBQ SCH ×2 (07:57→21:16)
[2021-02-16] MEDS: Docusate Oral Soln 100 MG/10 ML UDC GTUBE SCH ×2 (08:03→19:38)
[2021-02-16] MEDS: Chlorhexidine Rinse 15 ML MOUTHWASH MM SCH ×2 (08:03→21:09)
[2021-02-16] MEDS: Aspirin 81 MG TAB.CHEW GTUBE SCH (08:03)
[2021-02-16] MEDS: levETIRAcetam 750 MG in 0.9 % Sodium Chloride 100 ML IVPB SCH ×2 (08:04→19:33)
[2021-02-16] MEDS: Gabapentin 300 MG CAPSULE PO SCH ×2 (08:05→19:38)
[2021-02-16] MEDS: Cholecalciferol (D-3) 1,000 UNIT (25MCG) TABLET PO SCH (08:06)
[2021-02-16] MEDS: Multivitamin Liquid 15 ML UDC GTUBE SCH (08:06)
[2021-02-16] MEDS: MethylPREDNISolone 40 MG/ML VIAL IVP SCH (08:09)
[2021-02-16] MEDS: Heparin 25,000UNIT/250ML 1/2NS 25,000 UNIT/250 ML IV.SOLN IVC SCH (13:23)
[2021-02-16] MEDS: *HR* Metoprolol 5 MG/5 ML VIAL IVP PRN (13:40)
[2021-02-16] MEDS ORDERED: Furosemide 40 MG/4 ML VIAL IVP ONE (16:55)
[2021-02-16] MEDS: *HR* Metoprolol 5 MG/5 ML VIAL IVP SCH (17:27)
[2021-02-16] MEDS: Morphine Sulfate 2 MG/ML SYRINGE IVP PRN (18:19)
[2021-02-17] MEDS: Ipratropium/Albuterol Neb 3 ML IH SCH ×7 (00:02→23:08)
[2021-02-17] MEDS: *HR* Dextrose 50 % in Water (Syg) 50 ML SYRINGE IVP PRN (00:04)
[2021-02-17] MEDS: *HR* Metoprolol 5 MG/5 ML VIAL IVP SCH ×6 (00:04→22:45)
[2021-02-17] MEDS: Insulin LISPRO 300 UNITS/3 ML VIAL SUBQ SCH ×6 (00:04→22:50)
[2021-02-17] MEDS: Artificial Tears SOLN 15 ML BOTTLE BOTH EYES SCH ×5 (00:23→16:52)
[2021-02-17] MEDS: Dexmedetomidine HCl 400 MCG/100 ML MLS IVC SCH ×4 (01:05→16:54)
[2021-02-17] MEDS: Amiodarone Premix 360 MG/200 ML BAG IVC SCH ×2 (02:01→15:14)
[2021-02-17 03:08] LABS: Basophils % 0.1 %; Eosinophils % 0.2 %; Hematocrit 37.8 % (35.3-44.9); Hemoglobin 11.6 g/dL (11.5-15.4); Immature Granulocytes % 0.3 % (0-4); Lymphocytes % 9.7 %; Mean Corpuscular HGB Conc 30.7 g/dL (31.6-35.5); Mean Corpuscular Hemoglobin 27.7 pg (28.0-33.3); Mean Corpuscular Volume 90.2 fL (83.0-100.0); Monocytes # 0.5 K/mcL (0.0-1.3); Monocytes % 5.5 %; Neutrophils # 8.3 K/mcL (1.6-8.9); Platelet Count 120 K/mcL (140-400); Red Blood Count 4.19 M/mcL (3.82-4.97); Red Cell Distribution Width 18.5 % (11.5-14.5); Segmented Neutrophils % 84.2 %; White Blood Count 9.9 K/mcL (4.3-11.1)
[2021-02-17 03:25] LABS: BUN/Creatinine Ratio 62 (6-26); Blood Urea Nitrogen 21 mg/dL (8-23); Calcium 8.3 mg/dL (8.6-10.3); Carbon Dioxide 36 mEq/L (23-29); Chloride 101 mEq/L (98-107); Glucose 100 mg/dL (70-105); Osmolality,Calculated 297 (280-300); Potassium 3.1 mEq/L (3.5-5.1); Sodium 142 mEq/L (136-145); eGFR For African Americans > 60 (> 60); eGFR For Non-African Americans > 60 (> 60)
[2021-02-17] MEDS: Heparin 25,000UNIT/250ML 1/2NS 25,000 UNIT/250 ML IV.SOLN IVC SCH ×2 (06:02→22:49)
[2021-02-17] MEDS: Budesonide/Formoterol 160/4.5 1 PUFF INH IH SCH (07:27)
[2021-02-17] MEDS: Chlorhexidine Rinse 15 ML MOUTHWASH MM SCH ×2 (07:47→22:50)
[2021-02-17] MEDS: Aspirin 81 MG TAB.CHEW GTUBE SCH ×2 (07:47→08:04)
[2021-02-17] MEDS: Docusate Oral Soln 100 MG/10 ML UDC GTUBE SCH ×3 (07:47→22:51)
[2021-02-17] MEDS: Multivitamin Liquid 15 ML UDC GTUBE SCH ×2 (07:47→08:05)
[2021-02-17] MEDS: MethylPREDNISolone 40 MG/ML VIAL IVP SCH (07:48)
[2021-02-17] MEDS: Cholecalciferol (D-3) 1,000 UNIT (25MCG) TABLET PO SCH ×2 (07:48→08:05)
[2021-02-17] MEDS: Gabapentin 300 MG CAPSULE PO SCH ×3 (07:48→22:51)
[2021-02-17] MEDS: levETIRAcetam 750 MG in 0.9 % Sodium Chloride 100 ML IVPB SCH (07:49)
[2021-02-17] MEDS: Insulin DETEMIR 100 UNIT/ML X5UNITS SUBQ SCH ×2 (07:49→22:51)
[2021-02-17] MEDS: Nystatin Cream 15 GM TUBE TP SCH (10:08)
[2021-02-17] MEDS: Nystatin POWDER 30 GM BOTTLE TP SCH (10:09)
[2021-02-17] MEDS: Morphine Sulfate 2 MG/ML SYRINGE IVP PRN ×2 (10:10→15:26)
[2021-02-17] MEDS: Furosemide 40 MG/4 ML VIAL IVP SCH (11:21)
[2021-02-17] MEDS: *HR* LORazepam 2 MG/ML VIAL IVP PRN ×2 (12:11→16:52)
[2021-02-17] MEDS ORDERED: Furosemide 40 MG/4 ML VIAL IVP ONE (18:58)
[2021-02-17] MEDS ORDERED: Norepinephrine 4 MG/254 ML IV.SOLN IVC SCH (19:00)
[2021-02-18] MEDS: levETIRAcetam 750 MG in 0.9 % Sodium Chloride 100 ML IVPB SCH ×2 (01:08→09:22)
[2021-02-18] MEDS: Morphine Sulfate 2 MG/ML SYRINGE IVP PRN ×3 (01:19→13:13)
[2021-02-18] MEDS: *HR* LORazepam 2 MG/ML VIAL IVP PRN ×3 (01:23→13:13)
[2021-02-18] MEDS ORDERED: *HR* Metoprolol 5 MG/5 ML VIAL IVP ONE (01:32)
[2021-02-18] MEDS: Furosemide 40 MG/4 ML VIAL IVP SCH (01:35)
[2021-02-18 02:16] LABS: Basophils % 0.2 %; Hematocrit 40.8 % (35.3-44.9); Hemoglobin 12.5 g/dL (11.5-15.4); Immature Granulocytes % 0.3 % (0-4); Lymphocytes # 0.5 K/mcL (0.6-4.6); Lymphocytes % 3.6 %; Mean Corpuscular HGB Conc 30.6 g/dL (31.6-35.5); Mean Corpuscular Hemoglobin 27.8 pg (28.0-33.3); Mean Corpuscular Volume 90.9 fL (83.0-100.0); Mean Platelet Volume 11.1 fL (9.4-12.4); Monocytes # 0.5 K/mcL (0.0-1.3); Monocytes % 3.4 %; Neutrophils # 13.6 K/mcL (1.6-8.9); Platelet Count 153 K/mcL (140-400); Red Blood Count 4.49 M/mcL (3.82-4.97); Red Cell Distribution Width 18.4 % (11.5-14.5); Segmented Neutrophils % 92.5 %; White Blood Count 14.7 K/mcL (4.3-11.1)
[2021-02-18 02:31] LABS: BUN/Creatinine Ratio 68 (6-26); Blood Urea Nitrogen 25 mg/dL (8-23); Calcium 8.6 mg/dL (8.6-10.3); Carbon Dioxide 36 mEq/L (23-29); Chloride 99 mEq/L (98-107); Glucose 64 mg/dL (70-105); Magnesium 1.6 mg/dL (1.6-2.6); Osmolality,Calculated 296 (280-300); Potassium 3.4 mEq/L (3.5-5.1); Sodium 142 mEq/L (136-145); Triglycerides 185 mg/dL (< 150); eGFR For African Americans > 60 (> 60); eGFR For Non-African Americans > 60 (> 60)
[2021-02-18 02:40] LABS: Platelet Estimate Normal (Normal)
[2021-02-18] MEDS: Insulin LISPRO 300 UNITS/3 ML VIAL SUBQ SCH ×4 (03:20→12:34)
[2021-02-18] MEDS: Ipratropium/Albuterol Neb 3 ML IH SCH ×3 (03:27→12:14)
[2021-02-18] MEDS: Nystatin POWDER 30 GM BOTTLE TP SCH ×2 (03:35→09:19)
[2021-02-18] MEDS: Nystatin Cream 15 GM TUBE TP SCH ×2 (03:35→09:20)
[2021-02-18] MEDS: Artificial Tears SOLN 15 ML BOTTLE BOTH EYES SCH ×4 (03:36→12:35)
[2021-02-18] MEDS: *HR* Dextrose 50 % in Water (Syg) 50 ML SYRINGE IVP PRN (03:51)
[2021-02-18] MEDS: Dexmedetomidine HCl 400 MCG/100 ML MLS IVC SCH (04:03)
[2021-02-18] MEDS: *HR* Metoprolol 5 MG/5 ML VIAL IVP SCH ×2 (04:38→08:50)
[2021-02-18] MEDS: Amiodarone Premix 360 MG/200 ML BAG IVC SCH (05:50)
[2021-02-18] MEDS: Budesonide/Formoterol 160/4.5 1 PUFF INH IH SCH (07:40)
[2021-02-18] MEDS ORDERED: Aztreonam 2,000 MG in Water for inj. (sterile) 20 ML IVP SCH (08:00)
[2021-02-18 08:18] LABS: Lactate Dehydrogenase 316 Units/L (140-271); Total Protein 5.8 g/dL (6.4-8.9)
[2021-02-18] MEDS ORDERED: 0.9 % Sodium Chloride 500 ML IVC ONE (08:44)
[2021-02-18] MEDS: MethylPREDNISolone 40 MG/ML VIAL IVP SCH (08:54)
[2021-02-18] MEDS: Multivitamin Liquid 15 ML UDC GTUBE SCH (08:59)
[2021-02-18] MEDS ORDERED: levoFLOXacin 750 MG/150 ML 750 MG/150 ML BAG IVPB SCH (09:00)
[2021-02-18] MEDS: Insulin DETEMIR 100 UNIT/ML X5UNITS SUBQ SCH (09:21)
[2021-02-18] MEDS: Docusate Oral Soln 100 MG/10 ML UDC GTUBE SCH (09:22)
[2021-02-18] MEDS: Aspirin 81 MG TAB.CHEW GTUBE SCH (09:22)
[2021-02-18] MEDS: Chlorhexidine Rinse 15 ML MOUTHWASH MM SCH (09:22)
[2021-02-18] MEDS: Cholecalciferol (D-3) 1,000 UNIT (25MCG) TABLET PO SCH (09:25)
[2021-02-18] MEDS ORDERED: Lidocaine -MPF 1% 5 ML AMPUL INFILT ONE (09:46)
[2021-02-18] MEDS ORDERED: Morphine Sulfate 2 MG/ML SYRINGE IVP ONE (09:46)
[2021-02-18] MEDS: Gabapentin 300 MG CAPSULE PO SCH (09:57)
[2021-02-18 11:40] VITALS: TEMP 97.8
[2021-02-18] MEDS: Heparin 25,000UNIT/250ML 1/2NS 25,000 UNIT/250 ML IV.SOLN IVC SCH (12:34)
[2021-02-18 12:43] VITALS: BP 91/64; PULSE 107; O2SAT 83
[2021-02-18] MEDS ORDERED: Hyoscyamine SL 0.125 MG TAB.SUBL SL PRN (13:07)
== END 2021-02-18 13:53 | disposition expired | DRG 207 ==
LOC: 2ANU 22:23 → EMEROOARM 22:23 → SUATTDRO 01-23 04:07 → 2ANU 01-23 05:24 → SUATTDRO 01-23 15:00 → ICNU 01-25 08:47 → 2NNU 02-05 14:48 → ICNU 02-07 19:56 → 2NNU 02-13 16:33
PROVIDERS: ADMIT Family Medicine; ATTEND Internal Medicine